=== PATIENT | male | born 1955 | race Caucasian/White ===

== ENCOUNTER → 2020-02-28 | Outpatient (CLI) | payer OTHER ==
[~2020-02-28] MED LIST: REGADENOSON 0.4 MG/5 ML SYRINGE IV ONE
--- NOTE | 2020-02-28 16:28 | NM ---
EXAMINATION TYPE: NM stress lexiscan cardiolite DATE OF EXAM: 02/28/2020 COMPARISON: NONE HISTORY: Edema. Shortness of breath. TECHNIQUE: After the intravenous administration of 10.8 mCi Tc 99m Sestamibi - Cardiolite resting SP ECT images acquired 55 minutes post injection. The patient received 0.4mg Lexiscan, 24.3 mCi Tc 99m Sestamibi - Stress images obtained [address] injection FINDINGS: Review of stress and rest SPECT images demonstrates reversible perfusion abnormality of the base of t he septum, diffusely of the inferior wall, apical lateral wall. There is fixed defect of the inferio r wall on stress and rest, however apparent normal wall motion, and likely artifact and less likely r epresentative of scar. Gated analysis shows normal wall motion with an estimated left ventricular eje ction fraction of 65%. TID 0.95 IMPRESSION: 1. Scintigraphic evidence for reversible ischemia of the inferior wall, lateral wall, and septum as above. 2. Ejection fraction 65%. A Divide level critical message alert has been initiated for Nirmala Boswell III, MD via the [employer] Critical Results System on 02/28/2020 4:25 PM. This message alert has been sent to Nirmala vee III, MD via the preferences provided by the clinician for the receipt of Radiology Critical Fin macario. Message ID [id number].
--- NOTE | 2020-02-28 17:31 | ECHOF ---
Referral Reason:R60.0 Edema, R06.02 shortness of breath MEASUREMENTS -------- HEIGHT: 182.9 cm WEIGHT: 147.0 kg BP: RVIDd: 3.7 cm (< 3.3) IVSd: 1.0 cm (0.6 - 1.1) LVIDd: 4.3 cm (3.9 - 5.3) LVPWd: 1.3 cm (0.6 - 1.1) IVSs: 1.6 cm LVIDs: 4.1 cm LVPWs: 1.2 cm LA Diam: 3.8 cm (2.7 - 3.8) MV EXCURSION: 21.952 mm (> 18.000) MV EF SLOPE: 105 mm/s (70 - 150) EPSS: 1.0 cm MV E Adolph: 0.54 m/s MV DecT: 213 ms MV A Adolph: 0.56 m/s MV E/A Ratio: 0.96 RAP: 5.00 mmHg RVSP: 36.30 mmHg FINDINGS -------- Sinus rhythm. Morbid Obesity This was a techncally difficult study with suboptimal views, , Lumason utilized for enhancement of im ages. The left ventricular size is normal. Left ventricular wall thickness is normal. Overall left vent ricular systolic function is normal with, an EF between 55 - 60 %. The right ventricle is normal in size. The left atrial size is normal. The right atrial size is normal. 5.0mg OF Lumason UTLIZED: 2 OR MORE WALL SEGMENTS NOT VISUALIZED. IAS not well Visualized. There is mild aortic valve sclerosis. Mild mitral regurgitation is present. Mild tricuspid regurgitation present. There is mild pulmonary hypertension. The pulmonic valve was not well visualized. The aortic root size is normal. There is no pericardial effusion. CONCLUSIONS -------- 1. Sinus rhythm. 2. Morbid Obesity 3. This was a techncally difficult study with suboptimal views, , Lumason utilized for enhancement of images. 4. The left ventricular size is normal. 5. Left ventricular wall thickness is normal. 6. Overall left ventricular systolic function is normal with, an EF between 55 - 60 %. 7. The right ventricle is normal in size. 8. The left atrial size is normal. 9. The right atrial size is normal. 10. 5.0mg OF Lumason UTLIZED: 2 OR MORE WALL SEGMENTS NOT VISUALIZED. 11. There is mild aortic valve sclerosis. 12. Mild mitral regurgitation is present. 13. Mild tricuspid regurgitation present. 14. There is mild pulmonary hypertension. 15. The pulmonic valve was not well visualized. COATING AND BAKING OPERATOR: Ayaka Domingo RDCS
--- NOTE | 2020-02-28 18:45 | EST ---
EXERCISE STRESS AGE: 64 SEX: Male HT: 71" WT: 324 PROTOCOL: Lexiscan, Cardiolite STAGE: DURATION OF EXERCISE: HEART RATE REST: 67 BLOOD PRESSURE REST: 162/90 MAXIMUM HEART RATE ACHIEVED: 82 MAXIMUM BLOOD PRESSURE: 162/90 85% MPHR: 100% MPHR: METS: INDICATIONS: Difficulty in breathing, edema. CLINICAL INFORMATION: Baseline EKG revealed normal sinus rhythm without significant ST-T changes. Minor right ventricular conduction delay noted. With Lexiscan administration, heart rate went up from 67 to 82 beats per minute. Blood pressure changed from 160/90 to 144/73. Patient did not have any significant symptoms. Rare PVCs were noted. EKG remained unremarkable. By EKG criteria, this is an unremarkable Lexiscan stress test. The nuclear scan results, which are more pertinent, will be reported by the radiologist. VARGAS / LORRAINE: [id number] /
== END | disposition home or self-care (01) ==
LOC: RADNMMAIN 08:49
PROVIDERS: ATTEND Family Medicine
DX: I21.19 ST elevation (STEMI) myocardial infarction involving other coronary artery of inferior wall (principal); I08.3 Combined rheumatic disorders of mitral, aortic and tricuspid valves; I27.20 Pulmonary hypertension, unspecified
CPT/HCPCS: 93017; 78452; C8929; A9500; J2785; Q9950; 93306

== ENCOUNTER 2020-03-13 07:51 | Day surgery (SDC) | payer OTHER ==
[2020-03-09 12:08] VITALS: BMI 44.7
[~2020-03-13 07:51] MED LIST changes: +ALPRAZolam 0.25 MG TAB PO PRN; +ALPRAZolam 0.5 MG TAB PO PRN; +ASPIRIN 325 MG TAB PO STA; +ATORVASTATIN 80 MG TAB PO STA; +NITROGLYCERIN SL TABS 0.4 MG TAB SUBLINGUAL PRN; -REGADENOSON 0.4 MG/5 ML SYRINGE IV ONE; +SODIUM CHLORIDE 0.9% 1,000 ML in EMPTY BAG 1 BAG IV ONE
[2020-03-13 08:32] VITALS: TEMP 98.3
[2020-03-13 08:35] LABS: Basophils # (A) 0.1 k/uL (0-0.2); Basophils % (A) 1 %; Eosinophils # (A) 0.5 k/uL (0-0.7); Eosinophils % (A) 4 %; HCT 46.4 % (39.0-53.0); Lymphocytes # (A) 2.5 k/uL (1.0-4.8); Lymphocytes % (A) 25 %; MCHC 32.4 g/dL (31.0-37.0); MCV 89.4 fL (80.0-100.0); Mean Platelet Volume 6.8; Monocytes # (A) 0.6 k/uL (0-1.0); Monocytes % (A) 6 %; Neutrophils # (A) 6.3 k/uL (1.3-7.7); Neutrophils % (A) 62 %; Platelet Count 293 k/uL (150-450); RBC 5.19 m/uL (4.30-5.90); RDW 13.3 % (11.5-15.5); WBC 10.1 k/uL (3.8-10.6)
[2020-03-13] MEDS: MIDAZOLAM 2 MG/2 ML VIAL IVP ONE ×2 (09:09→09:16)
[2020-03-13] MEDS: fentaNYL (PF) 50 MCG/ML 2 ML AMP IVP ONE ×2 (09:09→09:14)
[2020-03-13] MEDS ORDERED: LIDOCAINE 1% INJ 10MG/ML (20 ML MDV) SQ ONE (09:12)
[2020-03-13] MEDS ORDERED: IOPAMIDOL-370 100ML BTL INJ ONE (09:24)
[2020-03-13] MEDS ORDERED: RX INFO: IV CONTRAST WAS GIVEN 1 EACH MISC MISCELLANE PRN (11:06)
[2020-03-13] MEDS ORDERED: SODIUM CHLORIDE 0.9% 1,000 ML IV SCH (11:15)
--- NOTE | 2020-03-13 11:44 | CC ---
CARDIAC CATHETERIZATION REPORT INDICATION: Shortness of breath with abnormal stress test. PROCEDURE NOTE: After obtaining informed consent, left heart catheterization and coronary angiogram were performed via the right femoral artery using standard Peter catheters. Patient tolerated the procedure well without any obvious immediate complication. A femoral angiogram was performed and Angio-Seal will be deployed for hemostasis. FINDINGS: 1. HEMODYNAMICS: Left ventricular end-diastolic pressure is 8 to 12 mm. There is no significant gradient across the aortic valve. 2. LEFT VENTRICULOGRAM: Left ventriculogram is not performed. 3. ANGIOGRAPHIC DATA: LEFT MAIN CORONARY ARTERY: Left main coronary artery is a normal-sized vessel and is free of stenosis. Divides into left anterior descending coronary artery and circumflex coronary artery. LAD and its branches, circumflex coronary artery and its branches are free of significant stenosis. Right coronary artery is a codominant system and is free of significant disease. CONCLUSION: 1. Normal coronary arteries. 2. Normal left ventricular end-diastolic pressure. 3. False-positive stress test. PLAN: Patient's management is going to be in the form of risk factor modification, medical therapy. MMODL / IJN: [id number] /
--- NOTE | 2020-03-13 11:50 | LTR ---
DATE OF SERVICE: 03/13/2020 RE: Owen Aldrich Dear George: I performed cardiac catheterization on Owen Aldrich, a detailed catheterization note is enclosed for your records. In brief, cardiac catheterization revealed normal coronary arteries. I believe patient's shortness of breath is noncardiac in origin, and his management is going to be in the form of risk factor modification and medical therapy. His stress test is a false positive stress. Thank you for giving me the privilege of participated in the care of this pleasant gentleman. Sincerely, MD VARGAS Mireles / LORRAINE: [id number] /
--- NOTE | 2020-03-13 12:44 | CC ---
CARDIAC CATHETERIZATION REPORT INDICATION: Occasional shortness of breath with abnormal stress test. PROCEDURE NOTE: After obtaining an informed consent, left heart catheterization and coronary angiogram were performed via the right femoral artery using standard Peter catheters. Patient tolerated the procedure well without any obvious immediate complications. A femoral angiogram was performed and Angio-Seal was deployed for hemostasis. Patient received moderate conscious sedation. Total sedation time was 14 minutes. FINDINGS: HEMODYNAMICS: Left ventricular end-diastolic pressure is 6-8 mm, there is no significant gradient across the aortic valve. LEFT VENTRICULOGRAM: Left ventriculogram was not performed. ANGIOGRAPHIC DATA: LEFT MAIN CORONARY ARTERY: Left main coronary artery is a normal-sized vessel and is free of stenosis. Divides into left anterior descending coronary artery and circumflex coronary artery. LAD and its branches, circumflex coronary artery and its branches are free of significant stenosis. Right coronary artery is a large dominant vessel and is free of significant disease. CONCLUSION: 1. Normal coronary arteries. 2. Normal left ventricular end-diastolic pressure. PLAN: I reviewed angiographic data with the patient and told him that his stress test is a falsely positive stress test and his management is going to be in the form of risk factor modification and optimal medical therapy. He has discomfort in his feet and had been seen by a vascular surgeon and Wound Clinic. MMODL / IJN: [id number] /
[2020-03-13 16:33] VITALS: BP 129/66; PULSE 60; RESP 16
== END 2020-03-13 14:43 | disposition home or self-care (01) ==
LOC: CATHCVL 07:51
PROVIDERS: ATTEND Internal Medicine Cardiovascular Disease
DX: R06.02 Shortness of breath (principal); R94.39 Abnormal result of other cardiovascular function study; E78.2 Mixed hyperlipidemia; R60.0 Localized edema; E66.01 Morbid (severe) obesity due to excess calories; I08.1 Rheumatic disorders of both mitral and tricuspid valves; Z68.41 Body mass index [BMI] 40.0-44.9, adult; Z79.82 Long term (current) use of aspirin; Z79.899 Other long term (current) drug therapy; Z87.891 Personal history of nicotine dependence
CPT/HCPCS: 93458; 85025; C1769 ×2; C1760; C1894; J2250; J2001; J3010; Q9967

== ENCOUNTER 2020-06-04 16:03 | Inpatient (IN) | payer OTHER ==
[2020-06-04] MEDS ORDERED: ACETAMINOPHEN TAB 325 MG TAB PO PRN (20:29)
[2020-06-04] MEDS ORDERED: FUROSEMIDE 10 MG/ML 4 ML VIAL IV STA (20:29)
[2020-06-04] MEDS ORDERED: ONDANSETRON 4 MG/2 ML VIAL IVP PRN (20:30)
[2020-06-04] MEDS: MORPHINE SULFATE 4 MG/ML SYRINGE IVP PRN (21:18)
[2020-06-04 21:43] LABS: Basophils # (A) 0.1 k/uL (0-0.2); Basophils % (A) 1 %; Eosinophils # (A) 0.6 k/uL (0-0.7); Eosinophils % (A) 8 %; HCT 43.4 % (39.0-53.0); Lymphocytes # (A) 2.1 k/uL (1.0-4.8); Lymphocytes % (A) 29 %; MCH 30.2 pg (25.0-35.0); MCHC 32.2 g/dL (31.0-37.0); MCV 93.6 fL (80.0-100.0); Mean Platelet Volume 6.9; Monocytes # (A) 0.4 k/uL (0-1.0); Monocytes % (A) 6 %; Neutrophils # (A) 3.9 k/uL (1.3-7.7); Neutrophils % (A) 54 %; Platelet Count 263 k/uL (150-450); RBC 4.64 m/uL (4.30-5.90); RDW 13.4 % (11.5-15.5); WBC 7.2 k/uL (3.8-10.6)
[2020-06-04] MEDS: PANTOPRAZOLE 40 MG TABLET PO SCH (21:50)
[2020-06-04] MEDS: SENNOSIDES 8.6 MG TAB PO SCH (21:50)
[2020-06-04 21:53] LABS: INR 0.9 (<1.2); Prothrombin Time 9.3 sec (9.0-12.0)
[2020-06-04 21:56] LABS: ALT 56 U/L (4-49); AST 48 U/L (17-59); African American GFR (CKD) >90 (>60 ml/min/1.73 sqM); Albumin 3.6 g/dL (3.5-5.0); Albumin/Globulin Ratio 1.1; Alkaline Phosphatase 112 U/L (38-126); Anion Gap 3 mmol/L; Blood Urea Nitrogen 35 mg/dL (9-20); Calcium 8.9 mg/dL (8.4-10.2); Carbon Dioxide 28 mmol/L (22-30); Chloride 107 mmol/L (98-107); Globulin 3.2 g/dL; Glucose 90 mg/dL (74-99); Non-African American GFR(CKD) >90 (>60 ml/min/1.73 sqM); Potassium 4.1 mmol/L (3.5-5.1); Sodium 138 mmol/L (137-145); Total Bilirubin 0.7 mg/dL (0.2-1.3); Total Protein 6.8 g/dL (6.3-8.2)
--- NOTE | 2020-06-04 22:00 | XR ---
EXAMINATION: XR chest 2V DATE AND TIME: 06/04/2020 9:57 PM CLINICAL INDICATION: PHH; BLE edema, admission TECHNIQUE: Departmental protocol COMPARISON: None FINDINGS: The overlying soft tissues are prominent. The lungs are clear. The pleural spaces are negative. The cardiac silhouette is mildly enlarged. The remainder of the mediastinal silhouette is unremarkabl e. The skeletal structures and soft tissues are negative for acute findings. IMPRESSION: No definite acute radiographic process.
[2020-06-04] MEDS: KETOROLAC 15 MG/ML 1 ML VIAL IVP SCH (22:38)
[2020-06-04] MEDS: AMPICILLIN-SULBACTAM 3 GM in SODIUM CHLORIDE 0.9% 100 ML IVPB SCH (23:30)
[2020-06-04] MEDS: HEPARIN SODIUM,PORCINE 5,000 UNIT/ML 1 ML VIAL SQ SCH (23:30)
[2020-06-05] MEDS: KETOROLAC 15 MG/ML 1 ML VIAL IVP SCH (03:28)
[2020-06-05] MEDS: MORPHINE SULFATE 4 MG/ML SYRINGE IVP PRN ×2 (04:17→09:08)
[2020-06-05] MEDS: AMPICILLIN-SULBACTAM 3 GM in SODIUM CHLORIDE 0.9% 100 ML IVPB SCH ×3 (05:47→17:10)
[2020-06-05] MEDS: SENNOSIDES 8.6 MG TAB PO SCH ×2 (09:02→09:13)
[2020-06-05] MEDS: PANTOPRAZOLE 40 MG TABLET PO SCH (09:02)
[2020-06-05] MEDS: polyethylene glycoL 3350 17 GM POWD.PACK PO SCH ×2 (09:03→09:13)
[2020-06-05] MEDS: HEPARIN SODIUM,PORCINE 5,000 UNIT/ML 1 ML VIAL SQ SCH ×2 (09:03→17:11)
[2020-06-05] MEDS ORDERED: LORATADINE 10 MG TAB PO PRN (10:09)
[2020-06-05] MEDS ORDERED: HYDROcodone/APAP 5-325MG 1 EACH TAB PO PRN (10:09)
[2020-06-05] MEDS ORDERED: NITROGLYCERIN SL TABS 0.4 MG TAB SUBLINGUAL PRN (10:09)
[2020-06-05] MEDS ORDERED: MORPHINE SULFATE 4 MG/ML SYRINGE IVP PRN (11:28)
--- NOTE | 2020-06-05 11:34 | P.CONS ---
History of Present Illness - Reason for Consult Consult date: 06/05/20 wound care - History of Present Illness this is a 64-year-old gentleman being seen by the wound care center for nonhealing ulceration to the dorsal aspect of the second third and fourth toe. Patient has extensive swelling and redness to bilateral lower extremities. Patient complains of significant amount of pain to the site. Patient was seen previously in the wound care center by Dr. Rolon in February. He was not happy with the dressing selections nor nor how wound care work and did not return for any further visits. Patient continues to have swelling and drainage to the toes. Patient states that dressings are not needed to the ulcerations because it is just drainage in the dressings cause pain. Patient is also complaining of an open ulceration to the sacrum which has been there for 4-5 months. Patient s tates he does not utilize any forms of dressing because of the tenderness to the site. Patient has medical history significant for hypertension, hyperlipidemia, venous insufficiency, obesity, bilateral lower extremity edema, former smoker. Quit in 1999 smoked 2 packs a day for approximately 50 years. Review of Systems Review Of Systems: Constitutional: No fever, no chills, no night sweats. No weight change. No weakness, fatigue or lethargy. No daytime sleepiness. Integumentary:reports wounds, no lesions. No rash or pruritus. No unusual bruising. No change in hair or nails. Past Medical History Past Medical History: Hyperlipidemia, Hypertension Additional Past Medical History / Comment(s): Edema BLE, stress test abn, nocturia, ex-smoker, obseity, venous insufficiency, chronic ulcer of leg, pressure in eyes, cellulitis, chronic pain, History of Any Multi-Drug Resistant Organisms: None Reported Past Surgical History: Orthopedic Surgery Additional Past Surgical History / Comment(s): Rt middle finger surgery R/T injury, EGD, colonoscopy but patient states hes never had any scopes Past Anesthesia/Blood Transfusion Reactions: No Reported Reaction Past Psychological History: No Psychological Hx Reported Smoking Status: Former smoker Past Alcohol Use History: Occasional Additional Past Alcohol Use History / Comment(s): Smoked age 9 to age 44, up to 2 ppd, Quit 1999. Drinks wine now now and then. Past Drug Use History: None Reported - Past Family History Mother Family Medical History: No Reported History Medications and Allergies Home Medications Medication Instructions Recorded Confirmed Type Aspirin 325 mg PO DAILY 03/09/20 06/04/20 History Atorvastatin [Lipitor] 20 mg PO DAILY 03/09/20 06/04/20 History Furosemide [Lasix] 40 mg PO BID 03/09/20 06/04/20 History Pyridoxine HCl (Vitamin B6) 100 mg PO DAILY 03/09/20 06/04/20 History [Vitamin B-6] Turmeric Powder 1 tsp PO DAILY 03/09/20 06/04/20 History Calcium/Magnesium/Zinc 2 tab PO DAILY 06/04/20 06/04/20 History [Hiekimq-Eycpepjbi-Kuxv Tablet] Cayenne Pepper Powder 2 tsp PO DAILY 06/04/20 06/04/20 History Cetirizine HCl 10 mg PO DAILY PRN 06/04/20 06/04/20 History Cholecalciferol (Vitamin D3) 125 mcg PO DAILY 06/04/20 06/04/20 History [Vitamin D3] Doxycycline Hyclate 100 mg PO BID 06/04/20 06/04/20 History HYDROcodone/APAP 5-325MG [[place] 1 tab PO Q6H PRN 06/04/20 06/04/20 History 5-325] Ibuprofen [Motrin Ib] 800 mg PO TID 06/04/20 06/04/20 History Latanoprost Ophth [Xalatan 0.005%] 1 drop BOTH EYES HS 06/04/20 06/04/20 History Meloxicam [Mobic] 15 mg PO DAILY 06/04/20 06/04/20 History Nitroglycerin Sl Tabs [Nitrostat] 0.4 mg SL Q5M PRN 06/04/20 06/04/20 History [place]-3 600mg 1,200 mg PO DAILY 06/04/20 06/04/20 History Potassium Chloride 10 meq PO DAILY 06/04/20 06/04/20 History Potassium Gluconate 198 mg PO BID 06/04/20 06/04/20 History Spironolactone [Aldactone] 25 mg PO DAILY 06/04/20 06/04/20 History Vitamin A Acetate [Vitamin A] 10,000 unit SL DAILY 06/04/20 06/04/20 History Allergies Allergy/AdvReac Type Severity Reaction Status Date / Time No Known Allergies Allergy Verified 06/04/20 18:42 Physical Exam Vitals: Vital Signs Temp Pulse Resp BP Pulse Ox 06/05/20 05:00 97.0 F L 73 18 162/93 94 L 06/04/20 20:00 98.0 F 65 18 155/76 94 L 06/04/20 17:50 98.2 F 65 18 152/89 94 L Intake and Output 06/04/20 06/05/20 06/05/20 22:59 06:59 14:59 Intake Total 590 690 Output Total 1200 800 Balance -610 -110 Intake: Intake, IV Titration 100 Amount Ampicillin-Sulbactam 3 gm 100 In Sodium Chloride 0.9% 100 ml @ 200 mls/hr IVPB Q6HR [facility] Rx#:[id number] Oral 590 590 Output: Urine 1200 800 Other: Voiding Method Toilet Toilet Urinal Urinal # Voids 2 Weight 159.211 kg Physical exam: General Appearance: Alert, cooperative, no distress, appears stated age. Skin:The wound is currently classified as a Full Thickness Without Exposed Support Structures wound with etiology of To be determined and is located on the Left,Medial Toe second, thirdFourth. The wound is limited to skin breakdown. There is no tunneling or undermining noted. There is a largeamount of serous drainage noted. There is large (67-100%) red, pink granulation within the wound bed. There is a moderate amount of necrotic tissue within the wound bed including Adherent Slough. The periwound skin appearance erythema edema maceration and excoriation.. The periwound skin appearance did not exhibit: Callus, Crepitus, Excoriation, Induration, Rash, Scarring, Dry/Scaly, Maceration. Periwound temperature was noted aswarm to touch. The periwound has tenderness on palpation.all other Skin color, texture, tugor normal, no rashes or lesions. Neurologic: Alert oriented x3 Results CBC & Chem 7: 06/04/20 20:44 06/04/20 20:44 Labs: Abnormal Lab Results - Last 24 Hours (Table) 06/04/20 Range/Units 20:44 BUN 35 H (9-20) mg/dL ALT 56 H (4-49) U/L Microbiology - Last 24 Hours (Table) 06/04/20 23:49 Gram Stain - Preliminary Foot - Left Wound Culture - Preliminary 11/05/20 23:49 Gram Stain - Preliminary Foot - Right Wound Culture - Preliminary 06/04/20 23:49 Anaerobic Culture - Preliminary Foot - Right 06/04/20 23:49 Anaerobic Culture - Preliminary Foot - Left Assessment and Plan (1) Chronic venous hypertension (idiopathic) with ulcer of left lower extremity Current Visit: Yes Status: Acute Code(s): I87.312 - CHRONIC VENOUS HYPERTENSION W ULCER OF L LOW EXTREM; L97.929 - NON-PRS CHRONIC ULC UNSP PRT OF L LOW LEG W UNSP SEVERITY SNOMED Code(s): 856779058004172 (2) Chronic venous hypertension (idiopathic) with other complications of bilateral lower extremity Current Visit: Yes Status: Acute Code(s): I87.393 - CHRONIC VENOUS HTN W OTH COMP OF BILATERAL LOW EXTRM SNOMED Code(s): 171198256 (3) Non-healing ulcer of left foot, limited to breakdown of skin Current Visit: Yes Status: Acute Code(s): L97.521 - NON-PRS CHRONIC ULCER OTH PRT L FOOT LIMITED TO BRKDWN SKIN SNOMED Code(s): 400884936 (4) Wound infection Current Visit: Yes Status: Acute Code(s): T14.8XXA - OTHER INJURY OF UNSPECIFIED BODY REGION, INITIAL ENCOUNTER; L08.9 - LOCAL INFECTION OF THE SKIN AND SUBCUTANEOUS TISSUE, UNSP SNOMED Code(s): 98399813 Plan: discussed with patient and great length the need for advanced dressings. Patient was reluctant to have anything placed on his lower extremities. We will consult vascular surgery. Right bilateral legs with Mihir wraps to help control swelling. Apply absorptive silver to the dorsal aspect of the second third and fourth toe as tolerated changing Monday and Monday. Honey alginate to the sacral ulceration changing Monday with a border foam. Patient may return to the wound care center for outpatient wound care as need ed. Thank you for the consultation any questions please contact the wound care center DNP note has been reviewed and discussed with Dr. Sheridan and the impression and plan of care has been directed as dictated.
[2020-06-05] MEDS: KETOROLAC 15 MG/ML 1 ML VIAL IVP PRN ×2 (11:35→17:10)
[2020-06-05] MEDS: FUROSEMIDE 10 MG/ML 4 ML VIAL IV SCH ×2 (11:35→19:45)
--- NOTE | 2020-06-05 12:55 | P.HPIM ---
History of Present Illness 64-year-old male is admitted for bilateral lower extremity wounds and cellulitis significantly in the left lower extremity. Patient has nonhealing ulcers in both legs does have significant chronic venous insufficiency. Patient usually follows up with vascular surgery and wound clinic as an outpatient. Patient started having increasing redness and severe 10/10 pain in both lower extremities. Patient doesn't have any history of congestive heart failure. Patient is comparing of severe pain in both lower extremities. Patient used to be a smoker quit in 1999. Patient has an ulceration nonhealing on the dose last but of this second, third and fourth toes at the tarsometatarsal area. With significant redness in both lower extremities more pronounced in the left. Review of Systems REVIEW OF SYSTEMS: CONSTITUTIONAL: No fever, no malaise, no fatigue. HEENT: No recent visual problems or hearing problems. Denied any sore throat. CARDIOVASCULAR: No chest pain, orthopnea, PND, no palpitations, no syncope. PULMONARY: No shortness of breath, no cough, no hemoptysis. GASTROINTESTINAL: No diarrhea, no nausea, no vomiting, no abdominal pain. NEUROLOGICAL: No headaches, no weakness, no numbness. HEMATOLOGICAL: Denies any bleeding or petechiae. GENITOURINARY: Denies any burning micturition, frequency, or urgency. MUSCULOSKELETAL/RHEUMATOLOGICAL: as mentioned in HPI ENDOCRINE: Denies any polyuria or polydipsia. The rest of the 14-point review of systems is negative. Past Medical History Past Medical History: Hyperlipidemia, Hypertension Additional Past Medical History / Comment(s): Edema BLE, stress test abn, n octuria, ex-smoker, obseity, venous insufficiency, chronic ulcer of leg, pressure in eyes, cellulitis, chronic pain, History of Any Multi-Drug Resistant Organisms: None Reported Past Surgical History: Orthopedic Surgery Additional Past Surgical History / Comment(s): Rt middle finger surgery R/T injury, EGD, colonoscopy but patient states hes never had any scopes Past Anesthesia/Blood Transfusion Reactions: No Reported Reaction Past Psychological History: No Psychological Hx Reported Smoking Status: Former smoker Past Alcohol Use History: Occasional Additional Past Alcohol Use History / Comment(s): Smoked age 9 to age 44, up to 2 ppd, Quit 1999. Drinks wine now now and then. Past Drug Use History: None Reported - Past Family History Mother Family Medical History: No Reported History Medications and Allergies Home Medications Medication Instructions Recorded Confirmed Type Aspirin 325 mg PO DAILY 03/09/20 06/04/20 History Atorvastatin [Lipitor] 20 mg PO DAILY 03/09/20 06/04/20 History Furosemide [Lasix] 40 mg PO BID 03/09/20 06/04/20 History Pyridoxine HCl (Vitamin B6) 100 mg PO DAILY 03/09/20 06/04/20 History [Vitamin B-6] Turmeric Powder 1 tsp PO DAILY 03/09/20 06/04/20 History Calcium/Magnesium/Zinc 2 tab PO DAILY 06/04/20 06/04/20 History [Koxvdbd-Bulilslqb-Aaxc Tablet] Cayenne Pepper Powder 2 tsp PO DAILY 06/04/20 06/04/20 History Cetirizine HCl 10 mg PO DAILY PRN 06/04/20 06/04/20 History Cholecalciferol (Vitamin D3) 125 mcg PO DAILY 06/04/20 06/04/20 History [Vitamin D3] Doxycycline Hyclate 100 mg PO BID 06/04/20 06/04/20 History HYDROcodone/APAP 5-325MG [[place] 1 tab PO Q6H PRN 06/04/20 06/04/20 History 5-325] Ibuprofen [Motrin Ib] 800 mg PO TID 06/04/20 06/04/20 History Latanoprost Ophth [Xalatan 0.005%] 1 drop BOTH EYES HS 06/04/20 06/04/20 History Meloxicam [Mobic] 15 mg PO DAILY 06/04/20 06/04/20 History Nitroglycerin Sl Tabs [Nitrostat] 0.4 mg SL Q5M PRN 06/04/20 06/04/20 History [place]-3 600mg 1,200 mg PO DAILY 06/04/20 06/04/20 History Potassium Chloride 10 meq PO DAILY 06/04/20 06/04/20 History Potassium Gluconate 198 mg PO BID 06/04/20 06/04/20 History Spironolactone [Aldactone] 25 mg PO DAILY 06/04/20 06/04/20 History Vitamin A Acetate [Vitamin A] 10,000 unit SL DAILY 06/04/20 06/04/20 History Allergies Allergy/AdvReac Type Severity Reaction Status Date / Time No Known Allergies Allergy Verified 06/04/20 18:42 Physical Exam Vitals: Vital Signs Temp Pulse Resp BP Pulse Ox 06/05/20 12:31 97.9 F 69 18 142/82 93 L 06/05/20 05:00 97.0 F L 73 18 162/93 94 L 06/04/20 20:00 98.0 F 65 18 155/76 94 L 06/04/20 17:50 98.2 F 65 18 152/89 94 L Intake and Output 06/04/20 06/05/20 06/05/20 22:59 06:59 14:59 Intake Total 590 690 Output Total 1200 800 Balance -610 -110 Intake: Intake, IV Titration 100 Amount Ampicillin-Sulbactam 3 gm 100 In Sodium Chloride 0.9% 100 ml @ 200 mls/hr IVPB Q6HR [facility] Rx#:[id number] Oral 590 590 Output: Urine 1200 800 Other: Voiding Method Toilet Toilet Urinal Urinal # Voids 2 Weight 159.211 kg PHYSICAL EXAMINATION: GENERAL: The patient is alert and oriented x3, not in any acute distress. Well developed, well nourished. HEENT: Pupils are round and equally reacting to light. EOMI. No scleral icterus. No conjunctival pallor. Normocephalic, atraumatic. No pharyngeal erythema. No thyromegaly. CARDIOVASCULAR: S1 and S2 present. No murmurs, rubs, or gallops. PULMONARY: Chest is clear to auscultation, no wheezing or crackles. ABDOMEN: Soft, nontender, nondistended, normoactive bowel sounds. No palpable organomegaly. MUSCULOSKELETAL: No joint swelling or deformity. EXTREMITIES: No cyanosis, clubbing, or pedal edema. NEUROLOGICAL: Gross neurological examination did not reveal any focal deficits. SKIN: patient has ulcers as mentioned above significant lightheadedness both lower extremity significance allied as the left lower extremity. Patient also has a small boil in the medial aspect of the left buttock area. Results CBC & Chem 7: 06/04/20 20:44 06/04/20 20:44 Labs: Abnormal Lab Results - Last 24 Hours (Table) 06/04/20 Range/Units 20:44 BUN 35 H (9-20) mg/dL ALT 56 H (4-49) U/L Microbiology - Last 24 Hours (Table) 06/04/20 23:49 Gram Stain - Preliminary Foot - Left Wound Culture - Preliminary 06/04/20 23:49 Gram Stain - Preliminary Foot - Right Wound Culture - Preliminary 06/04/20 23:49 Anaerobic Culture - Preliminary Foot - Right 06/04/20 23:49 Anaerobic Culture - Preliminary Foot - Left Thrombosis Risk Factor Assmnt - Choose All That Apply Each Factor Represents 1 point: Obesity (BMI >25), Swollen legs (current) Each Risk Factor Represents 2 Points: Age 61-74 years Other congenital or acquired thrombophilia - If yes, enter type in comment: No Thrombosis Risk Factor Assessment Total Risk Factor Score: 4 Thrombosis Risk Factor Assessment Level: Moderate Risk Assessment and Plan Plan: -cellulitis and infected ulcers mostly stage II to 3 in the left lower extremity on the dose last but: Continue with the Unasyn at this time. Wound cultures were obtained infectious disease was consulted. Vascular surgery was consulted and patient the will need Mihir bandages. Patient need to elevate his legs while sleeping which she does at home. -Extensive edema of both lower extremities secondary to chronic venous insufficiency ulcer which is Lasix to IV to make him have effective diuresis. -Pain management continue with present morphine patient will also be started on Toradol for pain. -Nonhealing ulcer of the left foot venous ulceration -Obesity non-hyperlipidemia -Hypertension -DVT prophylaxis with heparin.GI prophylaxis Protonix
[2020-06-05] MEDS ORDERED: FUROSEMIDE 40 MG TAB PO SCH (16:00)
[2020-06-05] MEDS ORDERED: SILVER sulfADIAZINE Cream 400 GM 1 APPLIC APPLIC TOPICAL STA (16:43)
--- NOTE | 2020-06-05 17:15 | P.GSCN ---
History of Present Illness History of present illness: 64-year-old white male, patient is known to me from the wound clinic is a noncompliant stopped coming to the wound clinic. Patient has a cellulitis of the lower extremity and dorsal suspect the foot and there is some superficial ulcer anterior aspect of the right and left lower leg. We also noted some redness on the toes of the second and third toe on the left foot. Patient has been admitted admitted with IV antibiotic Diabetes, patient has history of 4 hypertension controlled with medication Neck examination neck is supple Chest is clear first and second sound normal normal abdomen is protuberant Vascular femorals are 1+ patient has a marked swelling of the both lower extre mity and dorsal suspect of the both feet more on the left than on the right and also there is some redness noted on the left foot all the toes and there is some superficial ulcer lower extremity. Plan is Silvadene cream with the compression wrap IV antibiotic and change dressing daily with the both feet elevation on 2 pillow follow with you thank you Past Medical History Past Medical History: Hyperlipidemia, Hypertension Additional Past Medical History / Comment(s): Edema BLE, stress test abn, nocturia, ex-smoker, obseity, venous insufficiency, chronic ulcer of leg, pressure in eyes, cellulitis, chronic pain, History of Any Multi-Drug Resistant Organisms: None Reported Past Surgical History: Orthopedic Surgery Additional Past Surgical History / Comment(s): Rt middle finger surgery R/T injury, EGD, colonoscopy but patient states hes never had any scopes Past Anesthesia/Blood Transfusion Reactions: No Reported Reaction Past Psychological History: No Psychological Hx Reported Smoking Status: Former smoker Past Alcohol Use History: Occasional Additional Past Alcohol Use History / Comment(s): Smoked age 9 to age 44, up to 2 ppd, Quit 1999. Drinks wine now now and then. Past Drug Use History: None Reported - Past Family History Mother Family Medical History: No Reported History Medications and Allergies Home Medications Medication Instructions Recorded Confirmed Type Aspirin 325 mg PO DAILY 03/09/20 06/04/20 History Atorvastatin [Lipitor] 20 mg PO DAILY 03/09/20 06/04/20 History Furosemide [Lasix] 40 mg PO BID 03/09/20 06/04/20 History Pyridoxine HCl (Vitamin B6) 100 mg PO DAILY 03/09/20 06/04/20 History [Vitamin B-6] Turmeric Powder 1 tsp PO DAILY 03/09/20 06/04/20 History Calcium/Magnesium/Zinc 2 tab PO DAILY 06/04/20 06/04/20 History [Qcwxuwt-Zyosthypc-Jvbg Tablet] Cayenne Pepper Powder 2 tsp PO DAILY 06/04/20 06/04/20 History Cetirizine HCl 10 mg PO DAILY PRN 06/04/20 06/04/20 History Cholecalciferol (Vitamin D3) 125 mcg PO DAILY 06/04/20 06/04/20 History [Vitamin D3] Doxycycline Hyclate 100 mg PO BID 06/04/20 06/04/20 History HYDROcodone/APAP 5-325MG [[place] 1 tab PO Q6H PRN 06/04/20 06/04/20 History 5-325] Ibuprofen [Motrin Ib] 800 mg PO TID 06/04/20 06/04/20 History Latanoprost Ophth [Xalatan 0.005%] 1 drop BOTH EYES HS 06/04/20 06/04/20 History Meloxicam [Mobic] 15 mg PO DAILY 06/04/20 06/04/20 History Nitroglycerin Sl Tabs [Nitrostat] 0.4 mg SL Q5M PRN 06/04/20 06/04/20 History [place]-3 600mg 1,200 mg PO DAILY 06/04/20 06/04/20 History Potassium Chloride 10 meq PO DAILY 06/04/20 06/04/20 History Potassium Gluconate 198 mg PO BID 06/04/20 06/04/20 History Spironolactone [Aldactone] 25 mg PO DAILY 06/04/20 06/04/20 History Vitamin A Acetate [Vitamin A] 10,000 unit SL DAILY 06/04/20 06/04/20 History Allergies Allergy/AdvReac Type Severity Reaction Status Date / Time No Known Allergies Allergy Verified 06/04/20 18:42 Surgical - Exam Vital Signs Temp Pulse Resp BP Pulse Ox 98.2 F 65 18 152/89 94 L 06/04/20 17:50 06/04/20 17:50 06/04/20 17:50 06/04/20 17:50 06/04/20 17:50 Results - Labs 06/04/20 20:44 06/04/20 20:44 Abnormal Lab Results - Last 24 Hours (Table) 06/04/20 Range/Units 20:44 BUN 35 H (9-20) mg/dL ALT 56 H (4-49) U/L Microbiology - Last 24 Hours (Table) 06/04/20 23:49 Gram Stain - Preliminary Foot - Left Wound Culture - Preliminary 06/04/20 23:49 Gram Stain - Preliminary Foot - Right Wound Culture - Preliminary 06/04/20 23:49 Anaerobic Culture - Preliminary Foot - Right 06/04/20 23:49 Anaerobic Culture - Preliminary Foot - Left Diabetes panel 06/04/20 Range/Units 20:44 Sodium 138 (137-145) mmol/L Potassium 4.1 (3.5-5.1) mmol/L Chloride 107 (98-107) mmol/L Carbon Dioxide 28 (22-30) mmol/L BUN 35 H (9-20) mg/dL Creatinine 0.89 (0.66-1.25) mg/dL Glucose 90 (74-99) mg/dL Calcium 8.9 (8.4-10.2) mg/dL AST 48 (17-59) U/L ALT 56 H (4-49) U/L Alkaline Phosphatase 112 (38-126) U/L Total Protein 6.8 (6.3-8.2) g/dL Albumin 3.6 (3.5-5.0) g/dL Calcium panel 06/04/20 Range/Units 20:44 Calcium 8.9 (8.4-10.2) mg/dL Albumin 3.6 (3.5-5.0) g/dL Pituitary panel 06/04/20 Range/Units 20:44 Sodium 138 (137-145) mmol/L Potassium 4.1 (3.5-5.1) mmol/L Chloride 107 (98-107) mmol/L Carbon Dioxide 28 (22-30) mmol/L BUN 35 H (9-20) mg/dL Creatinine 0.89 (0.66-1.25) mg/dL Glucose 90 (74-99) mg/dL Calcium 8.9 (8.4-10.2) mg/dL Adrenal panel 06/04/20 Range/Units 20:44 Sodium 138 (137-145) mmol/L Potassium 4.1 (3.5-5.1) mmol/L Chloride 107 (98-107) mmol/L Carbon Dioxide 28 (22-30) mmol/L BUN 35 H (9-20) mg/dL Creatinine 0.89 (0.66-1.25) mg/dL Glucose 90 (74-99) mg/dL Calcium 8.9 (8.4-10.2) mg/dL Total Bilirubin 0.7 (0.2-1.3) mg/dL AST 48 (17-59) U/L ALT 56 H (4-49) U/L Alkaline Phosphatase 112 (38-126) U/L Total Protein 6.8 (6.3-8.2) g/dL Albumin 3.6 (3.5-5.0) g/dL
[2020-06-05] MEDS: LATANOPROST 0.005% OPHTH DROPS 2.5 ML BTL BOTH EYES SCH (19:45)
--- NOTE | 2020-06-05 23:51 | P.CONS ---
History of Present Illness - Reason for Consult Consult date: 06/05/20 Lower extremity cellulitis Requesting physician: Dulce Melendez - Chief Complaint Bilateral leg swelling and redness x few days - History of Present Illness Patient is a 64-year-old male admitted to the hospital with bilateral lower extremity wound and cellulitis in this patient who did have a history of chronic lower extremity swelling and venous stasis ulcer with the patient has been previously treated at [facility], patient is now presented to the hospital with increasing swelling to the lower extremity especially the left leg with some superficial ulceration to his toes and some drainage in between the toe web, patient describing the pain to be sharp in nature and was almost 10 out of 10 in severity, he did have minimal drainage, on admission to the hospital the patient has been afebrile white count has been normal the patient did have local wound cultures obtained and the patient was started on Unasyn infectious disease was consulted for further management of antibiotic therapy Review of Systems Positive point has been mentioned in the HPI rest of the systems are negative Past Medical History Past Medical History: Hyperlipidemia, Hypertension Additional Past Medical History / Comment(s): Edema BLE, stress test abn, nocturia, ex-smoker, obseity, venous insufficiency, chronic ulcer of leg, pressure in eyes, cellulitis, chronic pain, History of Any Multi-Drug Resistant Organisms: None Reported Past Surgical History: Orthopedic Surgery Additional Past Surgical History / Comment(s): Rt middle finger surgery R/T injury, EGD, colonoscopy but patient states hes never had any scopes Past Anesthesia/Blood Transfusion Reactions: No Reported Reaction Past Psychological History: No Psychological Hx Reported Smoking Status: Former smoker Past Alcohol Use History: Occasional Additional Past Alcohol Use History / Comment(s): Smoked age 9 to age 44, up to 2 ppd, Quit 1999. Drinks wine now now and then. Past Drug Use History: None Reported - Past Family History Mother Family Medical History: No Reported History Medications and Allergies Home Medications Medication Instructions Recorded Confirmed Type Aspirin 325 mg PO DAILY 03/09/20 06/04/20 History Atorvastatin [Lipitor] 20 mg PO DAILY 03/09/20 06/04/20 History Furosemide [Lasix] 40 mg PO BID 03/09/20 06/04/20 History Pyridoxine HCl (Vitamin B6) 100 mg PO DAILY 03/09/20 06/04/20 History [Vitamin B-6] Turmeric Powder 1 tsp PO DAILY 03/09/20 06/04/20 History Calcium/Magnesium/Zinc 2 tab PO DAILY 06/04/20 06/04/20 History [Xocguhg-Lqrawjuev-Rabm Tablet] Cayenne Pepper Powder 2 tsp PO DAILY 06/04/20 06/04/20 History Cetirizine HCl 10 mg PO DAILY PRN 06/04/20 06/04/20 History Cholecalciferol (Vitamin D3) 125 mcg PO DAILY 06/04/20 06/04/20 History [Vitamin D3] Doxycycline Hyclate 100 mg PO BID 06/04/20 06/04/20 History HYDROcodone/APAP 5-325MG [[place] 1 tab PO Q6H PRN 06/04/20 06/04/20 History 5-325] Ibuprofen [Motrin Ib] 800 mg PO TID 06/04/20 06/04/20 History Latanoprost Ophth [Xalatan 0.005%] 1 drop BOTH EYES HS 06/04/20 06/04/20 History Meloxicam [Mobic] 15 mg PO DAILY 06/04/20 06/04/20 History Nitroglycerin Sl Tabs [Nitrostat] 0.4 mg SL Q5M PRN 06/04/20 06/04/20 History [place]-3 600mg 1,200 mg PO DAILY 06/04/20 06/04/20 History Potassium Chloride 10 meq PO DAILY 06/04/20 06/04/20 History Potassium Gluconate 198 mg PO BID 06/04/20 06/04/20 History Spironolactone [Aldactone] 25 mg PO DAILY 06/04/20 06/04/20 History Vitamin A Acetate [Vitamin A] 10,000 unit SL DAILY 06/04/20 06/04/20 History Allergies Allergy/AdvReac Type Severity Reaction Status Date / Time No Known Allergies Allergy Verified 06/04/20 18:42 Physical Exam Vitals: Vital Signs Temp Pulse Resp BP Pulse Ox 06/05/20 05:00 97.0 F L 73 18 162/93 94 L 06/04/20 20:00 98.0 F 65 18 155/76 94 L 06/04/20 17:50 98.2 F 65 18 152/89 94 L Intake and Output 06/04/20 06/05/20 06/05/20 22:59 06:59 14:59 Intake Total 590 690 Output Total 1200 800 Balance -610 -110 Intake: Intake, IV Titration 100 Amount Ampicillin-Sulbactam 3 gm 100 In Sodium Chloride 0.9% 100 ml @ 200 mls/hr IVPB Q6HR [facility] Rx#:[id number] Oral 590 590 Output: Urine 1200 800 Other: Voiding Method Toilet Toilet Urinal Urinal # Voids 2 Weight 159.211 kg GENERAL DESCRIPTION: Middle-aged male up in the chair, no distress. No tachypnea or accessory muscle of respiration use. HEENT: Shows Pallor , no scleral icterus. Oral mucous membrane is dry. No pharyngeal erythema or thrush NECK: Trachea central, no thyromegaly. LUNGS: Unlabored breathing. Clear to auscultation anteriorly. No wheeze or crac kle. HEART: S1, S2, regular rate and rhythm. No loud murmur ABDOMEN: Soft, no tenderness , guarding or rigidity, no organomegaly EXTREMITIES: 2+ edema of feet. Patient did have superficial ulceration to his toes with some drainage and redness SKIN: No rash, no masses palpable. NEUROLOGICAL: The patient is awake, alert, oriented x3, mood and affect normal. Results CBC & Chem 7: 06/04/20 20:44 06/04/20 20:44 Labs: Abnormal Lab Results - Last 24 Hours (Table) 06/04/20 Range/Units 20:44 BUN 35 H (9-20) mg/dL ALT 56 H (4-49) U/L Microbiology - Last 24 Hours (Table) 06/04/20 23:49 Gram Stain - Preliminary Foot - Left Wound Culture - Preliminary 06/04/20 23:49 Gram Stain - Preliminary Foot - Right Wound Culture - Preliminary 06/04/20 23:49 Anaerobic Culture - Preliminary Foot - Right 06/04/20 23:49 Anaerobic Culture - Preliminary Foot - Left Assessment and Plan Assessment: 1- patient with bilateral lower extremity venous stasis ulceration especially involving his toes and some evidence of cellulitis involving left foot as well as toes likely from gram-positive skin cy, gram-negative infection less likely but not entirely excluded, clinically behaving as a deep abscess (1) Bilateral lower leg cellulitis Current Visit: Yes Status: Acute Code(s): L03.116 - CELLULITIS OF LEFT LOWER LIMB; L03.115 - CELLULITIS OF RIGHT LOWER LIMB SNOMED Code(s): 577774135 Plan: 1- Unasyn 3 g every 6 hours 2- local wound care per the wound care team 3- discharge antibiotic on the basis of culture report We will follow on clinical condition and cultures to further adjust medication if needed Thank you for this consultation will follow this patient with you Time with Patient: Greater than 30
[2020-06-06] MEDS: AMPICILLIN-SULBACTAM 3 GM in SODIUM CHLORIDE 0.9% 100 ML IVPB SCH ×5 (00:35→23:34)
[2020-06-06] MEDS: HEPARIN SODIUM,PORCINE 5,000 UNIT/ML 1 ML VIAL SQ SCH ×4 (00:35→23:33)
[2020-06-06] MEDS: KETOROLAC 15 MG/ML 1 ML VIAL IVP PRN ×2 (01:46→08:30)
[2020-06-06 06:31] LABS: HCT 43.1 % (39.0-53.0); MCH 30.1 pg (25.0-35.0); MCHC 32.5 g/dL (31.0-37.0); MCV 92.6 fL (80.0-100.0); Mean Platelet Volume 6.8; Platelet Count 297 k/uL (150-450); RBC 4.65 m/uL (4.30-5.90); RDW 13.4 % (11.5-15.5); WBC 8.5 k/uL (3.8-10.6)
[2020-06-06] MEDS: CHOLECALCIFEROL 1,000 UNIT TAB PO SCH (08:12)
[2020-06-06] MEDS: FUROSEMIDE 10 MG/ML 4 ML VIAL IV SCH ×2 (08:13→20:28)
[2020-06-06] MEDS: MELOXICAM 7.5 MG TAB PO SCH (08:13)
[2020-06-06] MEDS: SENNOSIDES 8.6 MG TAB PO SCH (08:14)
[2020-06-06] MEDS: POTASSIUM CHLORIDE ER 10 MEQ TAB.ER.PRT PO SCH (08:14)
[2020-06-06] MEDS: PANTOPRAZOLE 40 MG TABLET PO SCH (08:14)
[2020-06-06] MEDS: ATORVASTATIN 20 MG TAB PO SCH (08:14)
[2020-06-06] MEDS: SPIRONOLACTONE 25 MG TAB PO SCH (08:18)
[2020-06-06] MEDS: ASPIRIN 325 MG TAB PO SCH (08:18)
[2020-06-06] MEDS: polyethylene glycoL 3350 17 GM POWD.PACK PO SCH (08:18)
[2020-06-06 09:28] LABS: African American GFR (CKD) 110.2 (60.0-200.0); Anion Gap 5.6 mmol/L (4.00-12.00); BUN/Creat Ratio 36.25 Ratio (12.00-20.00); Calcium 8.9 mg/dL (8.7-10.3); Carbon Dioxide 26.4 mmol/L (21.6-31.8); Non-African American GFR(CKD) 95.1 (60.0-200.0); Potassium 4.3 mmol/L (3.5-5.5)
--- NOTE | 2020-06-06 15:55 | P.PN ---
Subjective 64-year-old male is admitted for bilateral lower extremity wounds and cellulitis significantly in the left lower extremity. Patient has nonhealing ulcers in both legs does have significant chronic venous insufficiency. Patient usually follows up with vascular surgery and wound clinic as an outpatient. Patient started having increasing redness and severe 10/10 pain in both lower extremities. Patient doesn't have any history of congestive heart failure. Patient is comparing of severe pain in both lower extremities. Patient used to be a smoker quit in 1999. Patient has an ulceration nonhealing on the dose last but of this second, third and fourth toes at the tarsometatarsal area. With significant redness in both lower extremities more pronounced in the left. 06/06/2020 Wound cultures are polymicrobial including gram-negative bacilli gram-positive cocci, patient is presently on Unasyn and infectious disease and restless surgery evaluated the patient. Patient pain is better swelling is bit better today. Patient electrolytes are within normal limits patient has Mihir bandages today. Patient will be continued on IV Lasix. Constitutional: Denied any fatigue denied any fever. Cardio vascular: denied any chest pain, palpitations Gastrointestinal denied any nausea vomiting Pulmonary: Denied any shortness of breath cough Neurologic denied any new focal deficits All inpatient medications were reviewed and appropriate changes in these medications as dictated in the interval history and assessment and plan. Objective - Vital Signs Vital signs: Vital Signs Temp 98.3 F 06/06/20 12:22 Pulse 72 06/06/20 12:22 Resp 20 06/06/20 12:22 BP 119/55 06/06/20 12:22 Pulse Ox 94 L 06/06/20 12:22 Intake & Output 06/05/20 06/06/20 06/06/20 18:59 06:59 18:59 Intake Total 500 Output Total 500 2000 Balance -500 -1500 Intake: Oral 500 Output: Urine 500 1999 Other: Voiding Method Toilet Toilet Toilet Urinal Urinal Urinal # Voids 1 2 4 - Exam PHYSICAL EXAMINATION: GENERAL: The patient is alert and oriented x3, not in any acute distress. Well developed, well nourished. HEENT: Pupils are round and equally reacting to light. EOMI. No scleral icterus. No conjunctival pallor. Normocephalic, atraumatic. No pharyngeal erythema. No thyromegaly. CARDIOVASCULAR: S1 and S2 present. No murmurs, rubs, or gallops. PULMONARY: Chest is clear to auscultation, no wheezing or crackles. ABDOMEN: Soft, nontender, nondistended, normoactive bowel sounds. No palpable organomegaly. MUSCULOSKELETAL: No joint swelling or deformity. EXTREMITIES: No cyanosis, clubbing, or pedal edema. NEUROLOGICAL: Gross neurological examination did not reveal any focal deficits. SKIN: patient has ulcers as mentioned above significant lightheadedness both lower extremity significance allied as the left lower extremity. Patient also has a small boil in the medial aspect of the left buttock area. Patient's legs are wrapped with Mihir bandages today - Labs CBC & Chem 7: 06/06/20 06:01 06/06/20 06:01 Labs: Abnormal Lab Results - Last 24 Hours (Table) 06/06/20 Range/Units 06:01 BUN 29.0 H (9.0-27.0) mg/dL BUN/Creatinine Ratio 36.25 H (12.00-20.00) Ratio Microbiology - Last 24 Hours (Table) 06/04/20 21:04 Blood Culture - Preliminary Blood No Growth after 24 hours 06/04/20 20:55 Blood Culture - Preliminary Blood No Growth after 24 hours Assessment and Plan Plan: -cellulitis and infected ulcers mostly stage II to 3 in the left lower extremity : Continue with the Unasyn . Wound cultures are showing gram-positive cocci gram-negative bacilli infectious disease evaluated the patient. Vascular surgery valuated the patient. Patient need to elevate his legs while sleeping which she does at home. -Extensive edema of both lower extremities secondary to chronic venous insufficiency ulcer which is Lasix to IV to make him have effective diuresis. -Pain management continue with present morphine patient will also be started on Toradol for pain. -Nonhealing ulcer of the left foot venous ulceration -Obesity non-hyperlipidemia -Hypertension -DVT prophylaxis with heparin.GI prophylaxis Protonix
--- NOTE | 2020-06-06 18:19 | PN ---
PROGRESS NOTE DATE OF SERVICE: 06/06/2020 REASON FOR FOLLOWUP: Bilateral foot wound and cellulitis. INTERVAL HISTORY: Patient is currently afebrile. He is feeling better. Breathing comfortably. Overall pain and discomfort to the foot area has decreased. No chest pain. No cough. No abdominal pain. No diarrhea. PHYSICAL EXAMINATION: Blood pressure 119/55, pulse of 72, temperature 98.3, he is 94% on room air. General description is a middle-aged male lying in bed in no distress. Respiratory system: Unlabored breathing, clear to auscultation anteriorly. Heart S1, S2. Regular rate and rhythm. Abdomen soft, no tenderness. Overall foot swelling and redness has decreased. The wound is drying out. No drainage was noticed. LABS: Wound cultures currently pending. DIAGNOSTIC IMPRESSION AND PLAN: Patient with bilateral foot wound and cellulitis, especially to the toes area. Cultures currently pending. To continue with Unasyn while waiting for the culture to finalize to determine discharge antibiotics. Continue supportive care. MMODL / IJN: [id number] /
[2020-06-06] MEDS: LATANOPROST 0.005% OPHTH DROPS 2.5 ML BTL BOTH EYES SCH (20:28)
[2020-06-06 20:47] VITALS: RESP 18
[2020-06-07] MEDS: AMPICILLIN-SULBACTAM 3 GM in SODIUM CHLORIDE 0.9% 100 ML IVPB SCH ×4 (06:11→23:31)
[2020-06-07] MEDS: ATORVASTATIN 20 MG TAB PO SCH (08:04)
[2020-06-07] MEDS: ASPIRIN 325 MG TAB PO SCH (08:04)
[2020-06-07] MEDS: MELOXICAM 7.5 MG TAB PO SCH (08:04)
[2020-06-07] MEDS: SPIRONOLACTONE 25 MG TAB PO SCH (08:04)
[2020-06-07] MEDS: CHOLECALCIFEROL 1,000 UNIT TAB PO SCH (08:04)
[2020-06-07] MEDS: HEPARIN SODIUM,PORCINE 5,000 UNIT/ML 1 ML VIAL SQ SCH ×3 (08:05→23:30)
[2020-06-07] MEDS: FUROSEMIDE 10 MG/ML 4 ML VIAL IV SCH ×2 (08:05→18:20)
[2020-06-07] MEDS: POTASSIUM CHLORIDE ER 10 MEQ TAB.ER.PRT PO SCH (08:05)
[2020-06-07] MEDS: polyethylene glycoL 3350 17 GM POWD.PACK PO SCH (08:05)
[2020-06-07] MEDS: PANTOPRAZOLE 40 MG TABLET PO SCH (08:09)
--- NOTE | 2020-06-07 09:03 | PN ---
PROGRESS NOTE This patient came with marked cellulitis and redness of both lower extremities with some superficial cellulitis involving the toes. The patient was treated with IV antibiotics with Silvadene cream and elevation of the both feet. Today, the cellulitis has improved. Swelling is almost gone. PLAN: If the patient is discharged from the hospital, I will follow up in office in 1 week. Recommend to continue with the Silvadene cream and leg elevation at home. MMODL / IJN: [id number] /
[2020-06-07 09:12] LABS: African American GFR (CKD) 116.4 (60.0-200.0); Anion Gap 5.8 mmol/L (4.00-12.00); BUN/Creat Ratio 27.14 Ratio (12.00-20.00); Calcium 8.5 mg/dL (8.7-10.3); Carbon Dioxide 27.2 mmol/L (21.6-31.8); Non-African American GFR(CKD) 100.4 (60.0-200.0); Potassium 4.5 mmol/L (3.5-5.5)
--- NOTE | 2020-06-07 14:59 | P.PN ---
Subjective 64-year-old male is admitted for bilateral lower extremity wounds and cellulitis significantly in the left lower extremity. Patient has nonhealing ulcers in both legs does have significant chronic venous insufficiency. Patient usually follows up with vascular surgery and wound clinic as an outpatient. Patient started having increasing redness and severe 10/10 pain in both lower extremities. Patient doesn't have any history of congestive heart failure. Patient is comparing of severe pain in both lower extremities. Patient used to be a smoker quit in 1999. Patient has an ulceration nonhealing on the dose last but of this second, third and fourth toes at the tarsometatarsal area. With significant redness in both lower extremities more pronounced in the left. 06/06/2020 Wound cultures are polymicrobial including gram-negative bacilli gram-positive cocci, patient is presently on Unasyn and infectious disease and restless surgery evaluated the patient. Patient pain is better swelling is bit better today. Patient electrolytes are within normal limits patient has Mihir bandages today. Patient will be continued on IV Lasix. 06/07/2020 Patient's wound cultures are still pending also get the wound cultures decision regarding antibiotics can be made and patient can be discharged with follow-ups in the wound care clinic and IV as an outpatient. Constitutional: Denied any fatigue denied any fever. Cardio vascular: denied any chest pain, palpitations Gastrointestinal denied any nausea vomiting Pulmonary: Denied any shortness of breath cough Neurologic denied any new focal deficits All inpatient medications were reviewed and appropriate changes in these medications as dictated in the interval history and assessment and plan. Objective - Vital Signs Vital signs: Vital Signs Temp 98.2 F 06/07/20 12:01 Pulse 75 06/07/20 12:01 Resp 18 06/07/20 12:01 BP 169/75 06/07/20 13:31 Pulse Ox 93 L 06/07/20 12:01 Intake & Output 06/06/20 06/07/20 06/07/20 18:59 06:59 18:59 Intake Total 200 Output Total 2450 Balance -2250 Intake: Intake, IV Titration 200 Amount Ampicillin-Sulbactam 3 gm 200 In Sodium Chloride 0.9% 100 ml @ 200 mls/hr IVPB Q6HR [facility] Rx#:[id number] Output: Urine 2450 Other: Voiding Method Toilet Toilet Toilet Urinal Urinal Urinal # Voids 4 2 - Exam PHYSICAL EXAMINATION: GENERAL: The patient is alert and oriented x3, not in any acute distress. Well developed, well nourished. HEENT: Pupils are round and equally reacting to light. EOMI. No scleral icterus. No conjunctival pallor. Normocephalic, atraumatic. No pharyngeal erythema. No thyromegaly. CARDIOVASCULAR: S1 and S2 present. No murmurs, rubs, or gallops. PULMONARY: Chest is clear to auscultation, no wheezing or crackles. ABDOMEN: Soft, nontender, nondistended, normoactive bowel sounds. No palpable organomegaly. MUSCULOSKELETAL: No joint swelling or deformity. EXTREMITIES: No cyanosis, clubbing, or pedal edema. NEUROLOGICAL: Gross neurological examination did not reveal any focal deficits. SKIN: patient has ulcers as mentioned above significant lightheadedness both lower extremity significance allied as the left lower extremity. Patient also has a small boil in the medial aspect of the left buttock area. Patient's legs are wrapped with Mihir bandages today - Labs CBC & Chem 7: 06/06/20 06:01 06/07/20 05:58 Labs: Abnormal Lab Results - Last 24 Hours (Table) 06/07/20 Range/Units 05:58 BUN/Creatinine Ratio 27.14 H (12.00-20.00) Ratio Calcium 8.5 L (8.7-10.3) mg/dL Microbiology - Last 24 Hours (Table) 06/04/20 21:04 Blood Culture - Preliminary Blood No Growth after 48 hours 06/04/20 20:55 Blood Culture - Preliminary Blood No Growth after 48 hours 06/04/20 23:49 Anaerobic Culture - Final Foot - Right 06/04/20 23:49 Anaerobic Culture - Final Foot - Left 06/04/20 23:49 Gram Stain - Final Foot - Left Wound Culture - Final 06/04/20 23:49 Gram Stain - Final Foot - Right Wound Culture - Final Assessment and Plan Plan: -cellulitis and infected ulcers mostly stage II to 3 in the left lower extremity : Continue with the Unasyn . Wound cultures are showing gram-positive cocci gram-negative bacilli infectious disease evaluated the patient. Vascular surgery evaluated the patient. Patient need to elevate his legs while sleeping which she does at home. -Extensive edema of both lower extremities secondary to chronic venous insufficiency ulcer which is Lasix to IV to make him have effective diuresis. -Pain management continue with present morphine patient will also be started on Toradol for pain. -Nonhealing ulcer of the left foot venous ulceration -Obesity non-hyperlipidemia -Hypertension -DVT prophylaxis with heparin.GI prophylaxis Protonix
[2020-06-07] MEDS: LATANOPROST 0.005% OPHTH DROPS 2.5 ML BTL BOTH EYES SCH (21:06)
[2020-06-08] MEDS: AMPICILLIN-SULBACTAM 3 GM in SODIUM CHLORIDE 0.9% 100 ML IVPB SCH ×2 (05:45→12:22)
--- NOTE | 2020-06-08 06:24 | PN ---
PROGRESS NOTE DATE OF SERVICE: 06/07/2020 REASON FOR FOLLOWUP: Bilateral feet ulcer and cellulitis. INTERVAL HISTORY: The patient is currently afebrile. He is breathing comfortably. Pain is currently controlled. No vomiting. No diarrhea. No new symptoms. PHYSICAL EXAMINATION: Blood pressure 131/80 with a pulse of 75, temperature 98.2. He is 93% on room air. General description is a middle-aged male lying in bed in no distress. Examination of bilateral lower extremities did show 2+ edema of feet with some erythema to the left leg. However, overall ulceration on the toe area has dried out and no drainage. LABS: Creatinine 0.7. Local culture so far negative. DIAGNOSTIC IMPRESSION AND PLAN: Patient with bilateral feet superficial ulceration and cellulitis. Culture negative for resistant pathogen. Patient is covered with Unasyn, finishing therapy with oral Augmentin. Local care to continue as per Surgery. Continue with supportive care. MMODL / IJN: [id number] /
[2020-06-08] MEDS: ATORVASTATIN 20 MG TAB PO SCH (08:11)
[2020-06-08] MEDS: polyethylene glycoL 3350 17 GM POWD.PACK PO SCH (08:11)
[2020-06-08] MEDS: ASPIRIN 325 MG TAB PO SCH (08:11)
[2020-06-08] MEDS: POTASSIUM CHLORIDE ER 10 MEQ TAB.ER.PRT PO SCH (08:11)
[2020-06-08] MEDS: MELOXICAM 7.5 MG TAB PO SCH (08:11)
[2020-06-08] MEDS: PANTOPRAZOLE 40 MG TABLET PO SCH (08:11)
[2020-06-08] MEDS: SPIRONOLACTONE 25 MG TAB PO SCH (08:11)
[2020-06-08] MEDS: CHOLECALCIFEROL 1,000 UNIT TAB PO SCH (08:11)
[2020-06-08] MEDS: HEPARIN SODIUM,PORCINE 5,000 UNIT/ML 1 ML VIAL SQ SCH (08:12)
[2020-06-08 10:19] LABS: African American GFR (CKD) 110.2 (60.0-200.0); Anion Gap 7.1 mmol/L (4.00-12.00); BUN/Creat Ratio 18.75 Ratio (12.00-20.00); Calcium 8.8 mg/dL (8.7-10.3); Carbon Dioxide 25.9 mmol/L (21.6-31.8); Non-African American GFR(CKD) 95.1 (60.0-200.0); Potassium 4.6 mmol/L (3.5-5.5)
[2020-06-08] MEDS: FUROSEMIDE 10 MG/ML 4 ML VIAL IV SCH (10:28)
[2020-06-08 13:58] VITALS: BP 125/85; PULSE 64; TEMP 98.5
--- NOTE | 2020-06-08 14:51 | P.DS ---
Providers Date of admission: 06/04/20 17:16 Attending physician: Tony Kelly Consults: 06/04/20 20:31 Consult Physician Routine Consulting Provider: Deejay Kirby Consult Reason/Comments: Bilateral toe wounds Do you want consulting provider notified?: Yes, Notify in am 06/05/20 11:24 Consult Physician Routine Consulting Provider: Jayden Rolon Consult Reason/Comments: ulceration left foot - seen in past Do you want consulting provider notified?: Yes Primary care physician: [facility] Course: 64-year-old male is admitted for bilateral lower extremity wounds and cellulitis significantly in the left lower extremity. Patient has nonhealing ulcers in both legs does have significant chronic venous insufficiency. Patient usually follows up with vascular surgery and wound clinic as an outpatient. Patient started having increasing redness and severe 10/10 pain in both lower extremities. Patient doesn't have any history of congestive heart failure. Patient is comparing of severe pain in both lower extremities. Patient used to be a smoker quit in 1999. Patient has an ulceration nonhealing on the dose last but of this second, third and fourth toes at the tarsometatarsal area. With significant redness in both lower extremities more pronounced in the left. 06/06/2020 Wound cultures are polymicrobial including gram-negative bacilli gram-positive cocci, patient is presently on Unasyn and infectious disease and restless surgery evaluated the patient. Patient pain is better swelling is bit better today. Patient electrolytes are within normal limits patient has Mihir bandages today. Patient will be continued on IV Lasix. 06/07/2020 Patient's wound cultures are still pending also get the wound cultures decision regarding antibiotics can be made and patient can be discharged with follow-ups in the wound care clinic and IV as an outpatient. 06/08/2020 Patient won't cultures are positive and the fact polymicrobial infectious disease is recommending Augmentin. Patient is noncompliant with the recommendations and patient is complaining of vertigo with discharged on Antivert. Symptoms consistent with benign positional vertigo. Patient will follow up in wound care clinic with the vascular surgery and infectious disease. PHYSICAL EXAMINATION: GENERAL: The patient is alert and oriented x3, not in any acute distress. Well developed, well nourished. HEENT: Pupils are round and equally reacting to light. EOMI. No scleral icterus. No conjunctival pallor. Normocephalic, atraumatic. No pharyngeal erythema. No thyromegaly. CARDIOVASCULAR: S1 and S2 present. No murmurs, rubs, or gallops. PULMONARY: Chest is clear to auscultation, no wheezing or crackles. ABDOMEN: Soft, nontender, nondistended, normoactive bowel sounds. No palpable organomegaly. MUSCULOSKELETAL: No joint swelling or deformity. EXTREMITIES: No cyanosis, clubbing, or pedal edema. NEUROLOGICAL: Gross neurological examination did not reveal any focal deficits. SKIN: patient has ulcers in both lower extremity cellulitis is significant of the left lower extremity Assessment and Plan Plan: -cellulitis and infected ulcers mostly stage II to 3 in the left lower extremity : Continue with the Unasyn . Wound cultures are showing gram-positive cocci gram-negative bacilli infectious disease evaluated the patient. Patient will be discharged on Augmentin -Benign push vertigo -Extensive edema of both lower extremities secondary to chronic venous insufficiency ulcer , patient will continue his Lasix and Aldactone -Pain management continue with present morphine patient will also be started on Toradol for pain. -Nonhealing ulcer of the left foot venous ulceration -Obesity -hyperlipidemia -Hypertension Plan - Discharge Summary Discharge Rx Participant: No New Discharge Prescriptions: New Meclizine [Antivert] 25 mg PO TID PRN #20 tab PRN Reason: Vertigo Amoxic-Pot Clav 875-125Mg [Augmentin 875-125] 1 tab PO Q12HR 10 Days #20 tab Continue Pyridoxine HCl (Vitamin B6) [Vitamin B-6] 100 mg PO DAILY Aspirin 325 mg PO DAILY Furosemide [Lasix] 40 mg PO BID Atorvastatin [Lipitor] 20 mg PO DAILY Turmeric Powder 1 tsp PO DAILY Nitroglycerin Sl Tabs [Nitrostat] 0.4 mg SL Q5M PRN PRN Reason: Chest Pain HYDROcodone/APAP 5-325MG [[place] 5-325] 1 tab PO Q6H PRN PRN Reason: Pain Meloxicam [Mobic] 15 mg PO DAILY Latanoprost Ophth [Xalatan 0.005%] 1 drop BOTH EYES HS Cholecalciferol (Vitamin D3) [Vitamin D3] 125 mcg PO DAILY Potassium Chloride 10 meq PO DAILY Cetirizine HCl 10 mg PO DAILY PRN PRN Reason: Allergy Symptoms Calcium/Magnesium/Zinc [Pkrjsvt-Ikbpktizk-Bfjx Tablet] 2 tab PO DAILY Vitamin A Acetate [Vitamin A] 10,000 unit SL DAILY Cayenne Pepper Powder 2 tsp PO DAILY Spironolactone [Aldactone] 25 mg PO DAILY [place]-3 600mg 1,200 mg PO DAILY Discontinued Ibuprofen [Motrin Ib] 800 mg PO TID Potassium Gluconate 198 mg PO BID Doxycycline Hyclate 100 mg PO BID Discharge Medication List Aspirin 325 mg PO DAILY 03/09/20 [History] Atorvastatin [Lipitor] 20 mg PO DAILY 03/09/20 [History] Furosemide [Lasix] 40 mg PO BID 03/09/20 [History] Pyridoxine HCl (Vitamin B6) [Vitamin B-6] 100 mg PO DAILY 03/09/20 [History] Turmeric Powder 1 tsp PO DAILY 03/09/20 [History] Calcium/Magnesium/Zinc [Flwrnld-Eqmlirwqv-Jyku Tablet] 2 tab PO DAILY 06/04/20 [History] Cayenne Pepper Powder 2 tsp PO DAILY 06/04/20 [History] Cetirizine HCl 10 mg PO DAILY PRN 06/04/20 [History] Cholecalciferol (Vitamin D3) [Vitamin D3] 125 mcg PO DAILY 06/04/20 [History] HYDROcodone/APAP 5-325MG [[place] 5-325] 1 tab PO Q6H PRN 06/04/20 [History] Latanoprost Ophth [Xalatan 0.005%] 1 drop BOTH EYES HS 06/04/20 [History] Meloxicam [Mobic] 15 mg PO DAILY 06/04/20 [History] Nitroglycerin Sl Tabs [Nitrostat] 0.4 mg SL Q5M PRN 06/04/20 [History] [place]-3 600mg 1,200 mg PO DAILY 06/04/20 [History] Potassium Chloride 10 meq PO DAILY 06/04/20 [History] Spironolactone [Aldactone] 25 mg PO DAILY 06/04/20 [History] Vitamin A Acetate [Vitamin A] 10,000 unit SL DAILY 06/04/20 [History] Amoxic-Pot Clav 875-125Mg [Augmentin 875-125] 1 tab PO Q12HR 10 Days #20 tab 06/08/20 [Rx] Meclizine [Antivert] 25 mg PO TID PRN #20 tab 06/08/20 [Rx] Follow up Appointment(s)/Referral(s): Nirmala Boswell III, MD [Primary Care Provider] - 1 Week [facility], [NON-STAFF] - 1 Week Jayden Rolon MD [STAFF PHYSICIAN] - 06/18/20 1:00 pm (bilateral leg venous ultrasound) Deejay Kirby MD [STAFF PHYSICIAN] - 1 Week Activity/Diet/Wound Care/Special Instructions: Dressing Changes to both lower extremities/feet daily: Silvadene cream, kerlex, mihir wrap; keep elevated. Discharge Disposition: HOME SELF-CARE
--- NOTE | 2020-06-08 22:07 | PN ---
PROGRESS NOTE DATE OF SERVICE: 06/08/2020 REASON FOR FOLLOWUP: Cellulitis of bilateral feet. INTERVAL HISTORY: The patient was seen on rounds this morning. The patient overall is feeling better, breathing comfortably. Overall pain and discomfort to the foot area has decreased. has slightly decreased as well as redness. No drainage. No abdominal pain or diarrhea. PHYSICAL EXAMINATION: Blood pressure 125/85 with a pulse of 64, temperature 98.5. He is 93% on room air. General description is a middle-aged male lying in bed in no distress. RESPIRATORY SYSTEM: Unlabored breathing. Clear to auscultation anteriorly. HEART: S1, S2. Regular rate and rhythm. No added sound. BILATERAL FEET: Swelling and redness have improved. No drainage. LABS: Wound culture negative for any resistant pathogen. Creatinine 0.8. DIAGNOSTIC IMPRESSION AND PLAN: Patient with bilateral foot wounds and question of cellulitis. Culture has been negative for resistant pathogen. Recommending Augmentin 875 b.i.d. for 10 days. Local care to continue as ordered and close outpatient followup. MMODL / IJN: [id number] /
== END 2020-06-08 16:12 | disposition home health service (06) | DRG 603 ==
LOC: 6NMEDSUR 17:16
PROVIDERS: ADMIT Internal Medicine; ATTEND Internal Medicine
DX: L03.116 Cellulitis of left lower limb (principal); I87.313 Chronic venous hypertension (idiopathic) with ulcer of bilateral lower extremity; Z68.42 Body mass index [BMI] 45.0-49.9, adult; L03.115 Cellulitis of right lower limb; L97.519 Non-pressure chronic ulcer of other part of right foot with unspecified severity; E11.621 Type 2 diabetes mellitus with foot ulcer; L02.32 Furuncle of buttock; E66.9 Obesity, unspecified; L97.529 Non-pressure chronic ulcer of other part of left foot with unspecified severity; G89.29 Other chronic pain; I10 Essential (primary) hypertension; H81.10 Benign paroxysmal vertigo, unspecified ear; E78.5 Hyperlipidemia, unspecified; Z91.19 Patient's noncompliance with other medical treatment and regimen; Z79.82 Long term (current) use of aspirin; Z79.1 Long term (current) use of non-steroidal anti-inflammatories (NSAID); Z79.899 Other long term (current) drug therapy; Z87.891 Personal history of nicotine dependence; Z87.39 Personal history of other diseases of the musculoskeletal system and connective tissue; Z98.890 Other specified postprocedural states
CPT/HCPCS: 71046; 80048; 80053; 85025; 85027; 85610; 87040; 87070; 87075; 87205

== ENCOUNTER 2020-06-11 17:26 | Inpatient (IN) | payer OTHER ==
[2020-06-11] MEDS ORDERED: SODIUM CHLORIDE 0.9% 500 ML 500 ML IV SCH (19:30)
--- NOTE | 2020-06-11 20:24 | XR ---
EXAMINATION TYPE: XR foot complete LT DATE OF EXAM: 06/11/2020 COMPARISON: NONE HISTORY: Redness and swelling TECHNIQUE: 3 views FINDINGS: There is soft tissue swelling of the forefoot. Metatarsals are intact. The toes appear inta ct. IMPRESSION: Soft tissue swelling. No fracture seen.
[2020-06-11 20:45] LABS: Basophils # (A) 0.1 k/uL (0-0.2); Basophils % (A) 1 %; Eosinophils # (A) 0.6 k/uL (0-0.7); Eosinophils % (A) 7 %; HCT 44.3 % (39.0-53.0); HGB 14.7 gm/dL (13.0-17.5); Lymphocytes # (A) 2.5 k/uL (1.0-4.8); Lymphocytes % (A) 28 %; MCH 30.3 pg (25.0-35.0); MCHC 33.2 g/dL (31.0-37.0); MCV 91.2 fL (80.0-100.0); Mean Platelet Volume 6.6; Monocytes # (A) 0.5 k/uL (0-1.0); Monocytes % (A) 6 %; Neutrophils % (A) 57 %; Platelet Count 280 k/uL (150-450); RBC 4.85 m/uL (4.30-5.90); RDW 13.6 % (11.5-15.5); WBC 8.8 k/uL (3.8-10.6)
[2020-06-11 20:53] LABS: INR 0.9 (<1.2); Prothrombin Time 9.6 sec (9.0-12.0)
--- NOTE | 2020-06-11 20:58 | ED ---
General Adult HPI - General Chief complaint: Extremity Problem,Nontraumatic Stated complaint: Foot discoloration, sent by dr Time Seen by Provider: 06/11/20 19:16 Source: patient, RN notes reviewed Mode of arrival: wheelchair Limitations: no limitations - History of Present Illness Initial comments: 64-year-old male with a past medical history of hyperlipidemia, hypertension, obesity, venous insufficiency, cellulitis presents to the emergency room for a chief complaint of worsening infection of the left foot. Patient reports that he was admitted to the hospital for cellulitis and IV antibiotics for a few days. He was discharged home 2 nights ago. He saw his primary care provider today who thought this looked worse. They wanted him to be seen back in the hospital. Patient does agree about his foot looks worse and that the infection is not improving at home. He denies fevers or chills. He does admit that the left foot is starting to swell more as well and caused more pain.Patient has no other complaints at this time including shortness of breath, chest pain, abdominal pain, nausea or vomiting, headache, or visual changes. - Related Data Home Medications Medication Instructions Recorded Confirmed Aspirin 325 mg PO DAILY 03/09/20 06/11/20 Furosemide [Lasix] 40 mg PO BID 03/09/20 06/11/20 Pyridoxine HCl (Vitamin B6) 100 mg PO DAILY 03/09/20 06/11/20 [Vitamin B-6] Turmeric Powder 1 tsp PO DAILY 03/09/20 06/11/20 Calcium/Magnesium/Zinc 2 tab PO DAILY 06/04/20 06/11/20 [Pimbfaa-Nwbmvfwdz-Ohls Tablet] Cayenne Pepper Powder 2 tsp PO DAILY 06/04/20 06/11/20 Cetirizine HCl 10 mg PO DAILY PRN 06/04/20 06/11/20 Cholecalciferol (Vitamin D3) 125 mcg PO DAILY 06/04/20 06/11/20 [Vitamin D3] HYDROcodone/APAP 5-325MG [[place] 1 tab PO Q6H PRN 06/04/20 06/11/20 5-325] Latanoprost Ophth [Xalatan 0.005%] 1 drop BOTH EYES HS 06/04/20 06/11/20 Meloxicam [Mobic] 15 mg PO DAILY 06/04/20 06/11/20 Nitroglycerin Sl Tabs [Nitrostat] 0.4 mg SL Q5M PRN 06/04/20 06/11/20 [place]-3 600mg 1,200 mg PO DAILY 06/04/20 06/11/20 Potassium Chloride 10 meq PO DAILY 06/04/20 06/11/20 Spironolactone [Aldactone] 25 mg PO DAILY 06/04/20 06/11/20 Vitamin A Acetate [Vitamin A] 10,000 unit SL DAILY 06/04/20 06/11/20 Amoxic-Pot Clav 875-125Mg 1 tab PO Q12H 06/11/20 06/11/20 [Augmentin 875-125] Previous Rx's Medication Instructions Recorded Meclizine [Antivert] 25 mg PO TID PRN #20 tab 06/08/20 Allergies Allergy/AdvReac Type Severity Reaction Status Date / Time No Known Allergies Allergy Verified 06/11/20 20:32 Review of Systems ROS Statement: Those systems with pertinent positive or pertinent negative responses have been documented in the HPI. ROS Other: All systems not noted in ROS Statement are negative. Past Medical History Past Medical History: Hyperlipidemia, Hypertension Additional Past Medical History / Comment(s): Edema BLE, stress test abn, noctur ia, ex-smoker, obseity, venous insufficiency, chronic ulcer of leg, pressure in eyes, cellulitis, chronic pain, History of Any Multi-Drug Resistant Organisms: None Reported Past Surgical History: Orthopedic Surgery Additional Past Surgical History / Comment(s): Rt middle finger surgery R/T injury, EGD, colonoscopy but patient states hes never had any scopes Past Anesthesia/Blood Transfusion Reactions: No Reported Reaction Past Psychological History: No Psychological Hx Reported Smoking Status: Former smoker Past Alcohol Use History: Occasional Past Drug Use History: None Reported - Past Family History Mother Family Medical History: No Reported History General Exam Limitations: no limitations General appearance: alert, in no apparent distress Head exam: Present: atraumatic, normocephalic, normal inspection Eye exam: Present: normal appearance, PERRL, EOMI. Absent: scleral icterus, conjunctival injection, periorbital swelling ENT exam: Present: normal exam, mucous membranes moist Neck exam: Present: normal inspection, full ROM. Absent: tenderness, meningismus, lymphadenopathy Respiratory exam: Present: normal lung sounds bilaterally. Absent: respiratory distress, wheezes, rales, rhonchi, stridor Cardiovascular Exam: Present: regular rate, normal rhythm, normal heart sounds. Absent: systolic murmur, diastolic murmur, rubs, gallop, clicks GI/Abdominal exam: Present: soft, normal bowel sounds. Absent: distended, tenderness, guarding, rebound, rigid Extremities exam: Present: tenderness (Tenderness to the dorsum of the left foot.), normal capillary refill (Capillary refill less than 2 seconds in the left foot.), pedal edema (Mild bilateral pedal edema worse in the left foot.), other (Erythema noted to the left dorsal forefoot with edema. Patient has purulent material noted on the second and third digits.). Absent: calf tenderness Neurological exam: Present: alert Course Vital Signs 06/11/20 17:34 Temperature 98.5 F Pulse Rate 69 Respiratory 18 Rate Blood Pressure 141/64 O2 Sat by Pulse 96 Oximetry Medical Decision Making - Medical Decision Making Vitals are stable. CBC unremarkable. CMP does show evidence of dehydration. Discussed findings with patient. Patient is concerned that his foot infection is worsening. He does state that it looks worse than when he was discharged from the hospital. Dr. Che also evaluated patient. At this time we recommend further management and patient for gangrene of the left second and third toes. Patient was started on Unasyn and vancomycin as he was on unasyn last time. Patient will be admitted for further management. - Lab Data Result diagrams: 06/11/20 19:30 06/11/20 19:30 Lab Results 06/11/20 06/11/20 06/11/20 Range/Units 19:30 19:30 19:30 WBC 8.8 (3.8-10.6) k/uL RBC 4.85 (4.30-5.90) m/uL Hgb 14.7 (13.0-17.5) gm/dL Hct 44.3 (39.0-53.0) % MCV 91.2 (80.0-100.0) fL MCH 30.3 (25.0-35.0) pg MCHC 33.2 (31.0-37.0) g/dL RDW 13.6 (11.5-15.5) % Plt Count 280 (150-450) k/uL MPV 6.6 Neutrophils % 57 % Lymphocytes % 28 % Monocytes % 6 % Eosinophils % 7 % Basophils % 1 % Neutrophils # 5.0 (1.3-7.7) k/uL Lymphocytes # 2.5 (1.0-4.8) k/uL Monocytes # 0.5 (0-1.0) k/uL Eosinophils # 0.6 (0-0.7) k/uL Basophils # 0.1 (0-0.2) k/uL PT 9.6 (9.0-12.0) sec INR 0.9 (<1.2) Sodium 139 (137-145) mmol/L Potassium 4.4 (3.5-5.1) mmol/L Chloride 104 (98-107) mmol/L Carbon Dioxide 31 H (22-30) mmol/L Anion Gap 4 mmol/L BUN 26 H (9-20) mg/dL Creatinine 1.05 (0.66-1.25) mg/dL Est GFR (CKD-EPI)AfAm 88 (>60 ml/min/1.73 sqM) Est GFR (CKD-EPI)NonAf 76 (>60 ml/min/1.73 sqM) Glucose 91 (74-99) mg/dL Plasma Lactic Acid Rodolfo (0.7-2.0) mmol/L Calcium 9.1 (8.4-10.2) mg/dL Total Bilirubin 0.7 (0.2-1.3) mg/dL AST 39 (17-59) U/L ALT 70 H (4-49) U/L Alkaline Phosphatase 85 (38-126) U/L C-Reactive Protein 9.3 (<10.0) mg/L Total Protein 7.0 (6.3-8.2) g/dL Albumin 3.8 (3.5-5.0) g/dL 06/11/20 Range/Units 19:30 WBC (3.8-10.6) k/uL RBC (4.30-5.90) m/uL Hgb (13.0-17.5) gm/dL Hct (39.0-53.0) % MCV (80.0-100.0) fL MCH (25.0-35.0) pg MCHC (31.0-37.0) g/dL RDW (11.5-15.5) % Plt Count (150-450) k/uL MPV Neutrophils % % Lymphocytes % % Monocytes % % Eosinophils % % Basophils % % Neutrophils # (1.3-7.7) k/uL Lymphocytes # (1.0-4.8) k/uL Monocytes # (0-1.0) k/uL Eosinophils # (0-0.7) k/uL Basophils # (0-0.2) k/uL PT (9.0-12.0) sec INR (<1.2) Sodium (137-145) mmol/L Potassium (3.5-5.1) mmol/L Chloride (98-107) mmol/L Carbon Dioxide (22-30) mmol/L Anion Gap mmol/L BUN (9-20) mg/dL Creatinine (0.66-1.25) mg/dL Est GFR (CKD-EPI)AfAm (>60 ml/min/1.73 sqM) Est GFR (CKD-EPI)NonAf (>60 ml/min/1.73 sqM) Glucose (74-99) mg/dL Plasma Lactic Acid Rodolfo 0.8 (0.7-2.0) mmol/L Calcium (8.4-10.2) mg/dL Total Bilirubin (0.2-1.3) mg/dL AST (17-59) U/L ALT (4-49) U/L Alkaline Phosphatase (38-126) U/L C-Reactive Protein (<10.0) mg/L Total Protein (6.3-8.2) g/dL Albumin (3.5-5.0) g/dL Disposition Clinical Impression: Cellulitis, Gangrene Disposition: ADMITTED IP TO THIS HOSP Is patient prescribed a controlled substance at d/c from ED?: No Referrals: Nirmala Boswell III, MD [Primary Care Provider] - 1-2 days Time of Disposition: 21:42
[2020-06-11 21:08] LABS: Albumin 3.8 g/dL (3.5-5.0); C Reactive Protein 9.3 mg/L (<10.0); Calcium 9.1 mg/dL (8.4-10.2); Potassium 4.4 mmol/L (3.5-5.1); Total Bilirubin 0.7 mg/dL (0.2-1.3)
[2020-06-11] MEDS ORDERED: AMPICILLIN-SULBACTAM 3 GM in SODIUM CHLORIDE 0.9% 100 ML IVPB STA (21:34)
[2020-06-11] MEDS ORDERED: VANCOMYCIN IV PER PHARMACY 1 EACH MISC MISCELLANE PRN (21:34)
[2020-06-11] MEDS ORDERED: NALOXONE 0.4 MG/ML 1 ML VIAL IV PRN (21:37)
[2020-06-11] MEDS: SODIUM CHLORIDE 0.9% 1,000 ML IV SCH (21:54)
[2020-06-11] MEDS ORDERED: VANCOMYCIN 2,000 MG in SODIUM CHLORIDE 0.9% 500 ML 500 ML IVPB ONE (23:00)
[2020-06-12] MEDS ORDERED: AMPICILLIN-SULBACTAM 3 GM in SODIUM CHLORIDE 0.9% 100 ML IVPB SCH (04:00)
[2020-06-12] MEDS ORDERED: MECLIZINE 25 MG TAB PO PRN (09:43)
[2020-06-12] MEDS ORDERED: HYDROcodone/APAP 5-325MG 1 EACH TAB PO PRN (09:43)
[2020-06-12] MEDS ORDERED: NITROGLYCERIN SL TABS 0.4 MG TAB SUBLINGUAL PRN (09:43)
--- NOTE | 2020-06-12 10:57 | P.DS ---
Providers Date of admission: 06/11/20 21:38 Attending physician: Vy Gonsalez MD Consults: 06/11/20 21:37 Consult Physician Routine Consulting Provider: Deejay Kirby Consult Reason/Comments: gangrene Do you want consulting provider notified?: Yes 06/12/20 09:43 Consult Physician Routine Consulting Provider: Jayden Rolon Consult Reason/Comments: Foot infection Do you want consulting provider notified?: Yes [facility]: Refer to my HPI for further details Plan - Discharge Summary Discharge Rx Participant: Yes New Discharge Prescriptions: Continue Pyridoxine HCl (Vitamin B6) [Vitamin B-6] 100 mg PO DAILY Aspirin 325 mg PO DAILY Turmeric Powder 1 tsp PO DAILY Nitroglycerin Sl Tabs [Nitrostat] 0.4 mg SL Q5M PRN PRN Reason: Chest Pain HYDROcodone/APAP 5-325MG [[place] 5-325] 1 tab PO Q6H PRN PRN Reason: Pain Meloxicam [Mobic] 15 mg PO DAILY Latanoprost Ophth [Xalatan 0.005%] 1 drop BOTH EYES HS Cholecalciferol (Vitamin D3) [Vitamin D3] 125 mcg PO DAILY Potassium Chloride 10 meq PO DAILY Cetirizine HCl 10 mg PO DAILY PRN PRN Reason: Allergy Symptoms Calcium/Magnesium/Zinc [Sodocvd-Suwglrktl-Zcbk Tablet] 2 tab PO DAILY Vitamin A Acetate [Vitamin A] 10,000 unit SL DAILY Cayenne Pepper Powder 2 tsp PO DAILY Spironolactone [Aldactone] 25 mg PO DAILY [place]-3 600mg 1,200 mg PO DAILY Meclizine [Antivert] 25 mg PO TID PRN #20 tab PRN Reason: Vertigo Amoxic-Pot Clav 875-125Mg [Augmentin 875-125] 1 tab PO Q12H Furosemide [Lasix] 40 mg PO BID #0 Discharge Medication List Aspirin 325 mg PO DAILY 03/09/20 [History] Pyridoxine HCl (Vitamin B6) [Vitamin B-6] 100 mg PO DAILY 03/09/20 [History] Turmeric Powder 1 tsp PO DAILY 03/09/20 [History] Calcium/Magnesium/Zinc [Ckoigre-Dvhhzpnnf-Actl Tablet] 2 tab PO DAILY 06/04/20 [History] Cayenne Pepper Powder 2 tsp PO DAILY 06/04/20 [History] Cetirizine HCl 10 mg PO DAILY PRN 06/04/20 [History] Cholecalciferol (Vitamin D3) [Vitamin D3] 125 mcg PO DAILY 06/04/20 [History] HYDROcodone/APAP 5-325MG [[place] 5-325] 1 tab PO Q6H PRN 06/04/20 [History] Latanoprost Ophth [Xalatan 0.005%] 1 drop BOTH EYES HS 06/04/20 [History] Meloxicam [Mobic] 15 mg PO DAILY 06/04/20 [History] Nitroglycerin Sl Tabs [Nitrostat] 0.4 mg SL Q5M PRN 06/04/20 [History] [place]-3 600mg 1,200 mg PO DAILY 06/04/20 [History] Potassium Chloride 10 meq PO DAILY 06/04/20 [History] Spironolactone [Aldactone] 25 mg PO DAILY 06/04/20 [History] Vitamin A Acetate [Vitamin A] 10,000 unit SL DAILY 06/04/20 [History] Meclizine [Antivert] 25 mg PO TID PRN #20 tab 06/08/20 [Rx] Amoxic-Pot Clav 875-125Mg [Augmentin 875-125] 1 tab PO Q12H 06/11/20 [History] Furosemide [Lasix] 40 mg PO BID #0 06/12/20 [Rx] Follow up Appointment(s)/Referral(s): Nirmala Boswell III, MD [Primary Care Provider] - 3 Days Jayden Rolon MD [STAFF PHYSICIAN] - 3 Days Deejay Kirby MD [STAFF PHYSICIAN] - 3 Days
--- NOTE | 2020-06-12 10:57 | P.HPIM ---
History of Present Illness 61-year-old obese male with venous insufficiency came in with the severe cellulitis of the left foot and infected wounds of the left foot. Patient was discharged on Augmentin depending on the wound cultures that were done during his last hospitalization. The patient has seen his primary care physician who believed the that patient infection may be worse because of which patient was sent in to ER and patient was subsequently admitted and patient is presently on vancomycin and Unasyn. Upon examination patient cellulitis of the left foot is actually better, patient will be evaluated by infectious disease and vascular surgery again and if they cleared him patient will be discharged. Patient doesn't have any fever chills. Patient swelling in both legs significantly improved. Review of Systems REVIEW OF SYSTEMS: CONSTITUTIONAL: No fever, no malaise, no fatigue. HEENT: No recent visual problems or hearing problems. Denied any sore throat. CARDIOVASCULAR: No chest pain, orthopnea, PND, no palpitations, no syncope. PULMONARY: No shortness of breath, no cough, no hemoptysis. GASTROINTESTINAL: No diarrhea, no nausea, no vomiting, no abdominal pain. NEUROLOGICAL: No headaches, no weakness, no numbness. HEMATOLOGICAL: Denies any bleeding or petechiae. GENITOURINARY: Denies any burning micturition, frequency, or urgency. MUSCULOSKELETAL/RHEUMATOLOGICAL: Denies any joint pain, swelling, or any muscle pain. ENDOCRINE: Denies any polyuria or polydipsia. The rest of the 14-point review of systems is negative. Past Medical History Past Medical History: Hyperlipidemia, Hypertension Additional Past Medical History / Comment(s): Edema BLE, stress test abn, nocturia, ex-smoker, obseity, venous insufficiency, chronic ulcer of leg, pressure in eyes, cellulitis, chronic pain, History of Any Multi-Drug Resistant Organisms: None Reported Past Surgical History: Orthopedic Surgery Additional Past Surgical History / Comment(s): Rt middle finger surgery R/T injury, EGD, colonoscopy but patient states hes never had any scopes Past Anesthesia/Blood Transfusion Reactions: No Reported Reaction Smoking Status: Former smoker - Past Family History Mother Family Medical History: No Reported History Medications and Allergies Home Medications Medication Instructions Recorded Confirmed Type Aspirin 325 mg PO DAILY 03/09/20 06/11/20 History Pyridoxine HCl (Vitamin B6) 100 mg PO DAILY 03/09/20 06/11/20 History [Vitamin B-6] Turmeric Powder 1 tsp PO DAILY 03/09/20 06/11/20 History Calcium/Magnesium/Zinc 2 tab PO DAILY 06/04/20 06/11/20 History [Loaobhz-Iexdfwrco-Ixft Tablet] Cayenne Pepper Powder 2 tsp PO DAILY 06/04/20 06/11/20 History Cetirizine HCl 10 mg PO DAILY PRN 06/04/20 06/11/20 History Cholecalciferol (Vitamin D3) 125 mcg PO DAILY 06/04/20 06/11/20 History [Vitamin D3] HYDROcodone/APAP 5-325MG [[place] 1 tab PO Q6H PRN 06/04/20 06/11/20 History 5-325] Latanoprost Ophth [Xalatan 0.005%] 1 drop BOTH EYES HS 06/04/20 06/11/20 History Meloxicam [Mobic] 15 mg PO DAILY 06/04/20 06/11/20 History Nitroglycerin Sl Tabs [Nitrostat] 0.4 mg SL Q5M PRN 06/04/20 06/11/20 History [place]-3 600mg 1,200 mg PO DAILY 06/04/20 06/11/20 History Potassium Chloride 10 meq PO DAILY 06/04/20 06/11/20 History Spironolactone [Aldactone] 25 mg PO DAILY 06/04/20 06/11/20 History Vitamin A Acetate [Vitamin A] 10,000 unit SL DAILY 06/04/20 06/11/20 History Meclizine [Antivert] 25 mg PO TID PRN #20 tab 06/08/20 06/11/20 Rx Amoxic-Pot Clav 875-125Mg 1 tab PO Q12H 06/11/20 06/11/20 History [Augmentin 875-125] Furosemide [Lasix] 40 mg PO BID #0 06/12/20 06/11/20 Rx Allergies Allergy/AdvReac Type Severity Reaction Status Date / Time No Known Allergies Allergy Verified 06/11/20 20:32 Physical Exam Vitals: Vital Signs Temp Pulse Pulse Resp BP BP Pulse Ox 06/12/20 07:17 98.1 F 59 L 19 123/72 94 L 06/12/20 07:00 97.6 F 61 16 132/88 93 L 06/12/20 06:40 98.0 F 58 L 20 149/88 95 06/12/20 00:40 80 17 131/77 97 06/12/20 00:33 97 06/11/20 17:34 98.5 F 69 18 141/64 96 Intake and Output 06/11/20 06/12/20 06/12/20 22:59 06:59 14:59 Intake Total 110 Output Total 300 Balance -190 Intake: Oral 110 Output: Urine 300 Other: Voiding Method Toilet Weight 147.418 kg 147.418 kg PHYSICAL EXAMINATION: GENERAL: The patient is alert and oriented x3, not in any acute distress. Well developed, well nourished. HEENT: Pupils are round and equally reacting to light. EOMI. No scleral icterus. No conjunctival pallor. Normocephalic, atraumatic. No pharyngeal erythema. No thyromegaly. CARDIOVASCULAR: S1 and S2 present. No murmurs, rubs, or gallops. PULMONARY: Chest is clear to auscultation, no wheezing or crackles. ABDOMEN: Soft, nontender, nondistended, normoactive bowel sounds. No palpable organomegaly. MUSCULOSKELETAL: No joint swelling or deformity. EXTREMITIES: No cyanosis, clubbing, or pedal edema. NEUROLOGICAL: Gross neurological examination did not reveal any focal deficits. SKIN: Patient has significant the cellulitis of the left foot along with infected ulcers on the tarsometatarsal area involving all the toes.. Results CBC & Chem 7: 06/11/20 19:30 06/11/20 19:30 Labs: Abnormal Lab Results - Last 24 Hours (Table) 06/11/20 Range/Units 19:30 Carbon Dioxide 31 H (22-30) mmol/L BUN 26 H (9-20) mg/dL ALT 70 H (4-49) U/L Assessment and Plan Plan: -Cellulitis and infected ulcers and of the left foot: Patient wound culture showed gram-positive cocci and gram-negative bacilli and patient was discharged on Augmentin. Patient's cellulitis appears to be bit better after evaluation and clearance by vascular surgery and infectious disease patient probably can be discharged back again. -Chronic venous insufficiency of both legs patient was discharged on 40 oral twice a day of Lasix along with Aldactone we may need to cut down the Lasix abated his swelling improved but that his creatinine has slightly worsened. Patient is also on meloxicam patient will need monitoring of basic metabolic profile. I will discuss with the primary care physician -Hypertension hyperlipidemia -Obesity Hyperlipidemia prophylaxis with Lovenox
[2020-06-12] MEDS ORDERED: VANCOMYCIN 2,500 MG in SODIUM CHLORIDE 0.9% 500 ML 500 ML IVPB SCH (11:00)
[2020-06-12 13:12] VITALS: BP 122/75; PULSE 58; RESP 17; TEMP 97.7
[2020-06-12] MEDS: SODIUM CHLORIDE 0.9% 1,000 ML IV SCH (14:03)
--- NOTE | 2020-06-12 16:10 | CDI ---
Documentation Clarification Form Date: 06/12/2020 03:40:47 PM From: Mary Ann Zamora RN, CCDS Admit Date: 06/11/2020 09:38:00 PM Patient Name: Owen Aldrich Visit Number: [id number] Discharge Date: ATTENTION: The Clinical Documentation Specialists (CDI) and [facility] Coding Staff appreciate your assistance in clarifying documentation. Please respond to the clarification below the line at the bottom and electronically sign. The CDI & [facility] Coding staff will review the response and follow-up if needed. Please note: Queries are made part of the Legal Health Record. If you have any questions, please contact the author of this message via ITS. Dr. Dulce Melendez Infected ulcers on the tarsometatarsal area involving all the toes is documented in the H/P. Please provide further specificity of infected ulcers if known. Patient history/risk factors: Cellulitis left foot, venous insufficiency, Obesity, Hypertension Clinical Indicators: 64-year-old male who was treated for severe cellulitis was sent in to ER by PCP who believed the patient infection may be worse. Extremities exam in ED: mild bilateral pedal edema worse in the left foot. Erythema noted to the left dorsal forefoot with edema. Patient has purulent material, gangrene noted on the second and third digit. 06/11 Labs: WBC 8.8 Wound assessment: Per ED gangrene of the left second and third toes. Treatment: Unasyn 3 gm IV q 6 hrs .9 NS 500 ml bolus Vancomycin HCL 2,500 mg iv q 12 hrs In your professional opinion, can the etiology and severity of the wound be further specified as one of the following? Etiology: Non-pressure chronic ulcer due to venous insufficiency Other, Please specify Unable to determine Severity: Limited to breakdown of skin With fat layer exposed With necrosis of muscle With necrosis of bone Other, Please specify Unable to determine (Last Revision: April 2017) Unable to determine MTDD
[2020-06-12] MEDS ORDERED: LATANOPROST 0.005% OPHTH DROPS 2.5 ML BTL BOTH EYES SCH (21:00)
[2020-06-12] MEDS ORDERED: FUROSEMIDE 10 MG/ML 4 ML VIAL IV SCH (21:00)
[2020-06-12] MEDS ORDERED: FUROSEMIDE 40 MG TAB PO SCH (21:00)
[2020-06-13] MEDS ORDERED: PYRIDOXINE 50 MG TAB PO SCH (09:00)
[2020-06-13] MEDS ORDERED: ASPIRIN 81 MG PO SCH (09:00)
[2020-06-13] MEDS ORDERED: MELOXICAM 7.5 MG TAB PO SCH (09:00)
[2020-06-13] MEDS ORDERED: SPIRONOLACTONE 25 MG TAB PO SCH (09:00)
== END 2020-06-12 16:00 | disposition home or self-care (01) | DRG 603 ==
LOC: EC 17:26 → 6NMEDSUR 21:38 → 5NMEDONC 06-12 07:03
PROVIDERS: ADMIT Internal Medicine; ATTEND Internal Medicine
DX: L03.116 Cellulitis of left lower limb (principal); Z68.42 Body mass index [BMI] 45.0-49.9, adult; I96 Gangrene, not elsewhere classified; I87.2 Venous insufficiency (chronic) (peripheral); L97.529 Non-pressure chronic ulcer of other part of left foot with unspecified severity; E66.9 Obesity, unspecified; E78.5 Hyperlipidemia, unspecified; E86.0 Dehydration; I10 Essential (primary) hypertension; G89.29 Other chronic pain; Z79.1 Long term (current) use of non-steroidal anti-inflammatories (NSAID); Z79.82 Long term (current) use of aspirin; Z79.899 Other long term (current) drug therapy; Z87.891 Personal history of nicotine dependence
CPT/HCPCS: 36415; 80053; 83605; 85025; 85610; 86140; 87040; 96361; 96365; 96366; 96367; 99285

== ENCOUNTER 2020-12-22 11:33 | Emergency (ER) | payer OTHER ==
[2020-12-22 11:59] VITALS: BP 130/88; PULSE 58; RESP 18; TEMP 98
--- NOTE | 2020-12-22 12:52 | XR ---
Chest x-ray and left RIBS HISTORY: Trauma and pain Frontal view of the chest, 4 views the left ribs submitted Correlation to prior chest x-ray 06/04/2020 There is no evident pneumothorax or pleural effusion. Cardiac mediastinal silhouette, pulmonary vascu lar and catarina are stable. There is overlying artifact. Eventration of right hemidiaphragm is noted. Th ere is thoracic spondylosis. Number displaced rib fracture noted at the left seventh rib, possibly eighth rib. IMPRESSION: Left seventh and possibly eighth rib fractures
--- NOTE | 2020-12-22 13:29 | ED ---
Fall HPI - General Chief Complaint: Fall Stated Complaint: Lt Rib Pain Time Seen by Provider: 12/22/20 12:05 Source: patient, RN notes reviewed Mode of arrival: ambulatory Limitations: no limitations - History of Present Illness Initial Comments: 65-year-old male presents emergency Department with chief complaint of left- sided rib pain. Patient states he fell 3 days ago when he tripped over his foot went under his left arm. Patient went of rib pain no head injury no loss conscious and arm pain. Patient states that he felt some clicking and popping inside and some discomfort. Patient denies any shortness breath over many hurts. No other injuries noted. - Related Data Home Medications Medication Instructions Recorded Confirmed Aspirin 325 mg PO DAILY 03/09/20 06/11/20 Pyridoxine HCl (Vitamin B6) 100 mg PO DAILY 03/09/20 06/11/20 [Vitamin B-6] Turmeric Powder 1 tsp PO DAILY 03/09/20 06/11/20 Calcium/Magnesium/Zinc 2 tab PO DAILY 06/04/20 06/11/20 [Msijoul-Ircjssswv-Clcy Tablet] Cayenne Pepper Powder 2 tsp PO DAILY 06/04/20 06/11/20 Cetirizine HCl 10 mg PO DAILY PRN 06/04/20 06/11/20 Cholecalciferol (Vitamin D3) 125 mcg PO DAILY 06/04/20 06/11/20 [Vitamin D3 (5000 Iu)] HYDROcodone/APAP 5-325MG [[place] 1 tab PO Q6H PRN 06/04/20 06/11/20 5-325] Latanoprost Ophth [Xalatan 0.005%] 1 drop BOTH EYES HS 06/04/20 06/11/20 Meloxicam [Mobic] 15 mg PO DAILY 06/04/20 06/11/20 Nitroglycerin Sl Tabs [Nitrostat] 0.4 mg SL Q5M PRN 06/04/20 06/11/20 [place]-3 600mg 1,200 mg PO DAILY 06/04/20 06/11/20 Potassium Chloride 10 meq PO DAILY 06/04/20 06/11/20 Spironolactone [Aldactone] 25 mg PO DAILY 06/04/20 06/11/20 Vitamin A Acetate [Vitamin A] 10,000 unit SL DAILY 06/04/20 06/11/20 Amoxic-Pot Clav 875-125Mg 1 tab PO Q12H 06/11/20 06/11/20 [Augmentin 875-125] Previous Rx's Medication Instructions Recorded Meclizine [Antivert] 25 mg PO TID PRN #20 tab 06/08/20 Furosemide [Lasix] 40 mg PO BID #0 06/12/20 HYDROcodone/APAP 7.5-325MG [[place] 1 tab PO Q6HR PRN 3 Days #12 tab 12/22/20 7.5-325] Allergies Allergy/AdvReac Type Severity Reaction Status Date / Time No Known Allergies Allergy Verified 12/22/20 11:59 Review of Systems ROS Statement: Those systems with pertinent positive or pertinent negative responses have been documented in the HPI. ROS Other: All systems not noted in ROS Statement are negative. Past Medical History Past Medical History: Hyperlipidemia, Hypertension Additional Past Medical History / Comment(s): Edema BLE, stress test abn, nocturia, ex-smoker, obseity, venous insufficiency, chronic ulcer of leg, pressure in eyes, cellulitis, chronic pain, History of Any Multi-Drug Resistant Organisms: None Reported Past Surgical History: Orthopedic Surgery Additional Past Surgical History / Comment(s): Rt middle finger surgery R/T injury, EGD, colonoscopy but patient states hes never had any scopes Past Anesthesia/Blood Transfusion Reactions: No Reported Reaction Past Psychological History: No Psychological Hx Reported Smoking Status: Former smoker Past Alcohol Use History: Occasional Past Drug Use History: None Reported - Past Family History Mother Family Medical History: No Reported History General Exam Limitations: no limitations General appearance: alert, in no apparent distress Head exam: Present: atraumatic, normocephalic, normal inspection Eye exam: Present: normal appearance, PERRL, EOMI. Absent: scleral icterus, conjunctival injection, periorbital swelling ENT exam: Present: normal exam, normal oropharynx, mucous membranes moist Neck exam: Present: normal inspection, full ROM. Absent: tenderness, meningismus, lymphadenopathy Respiratory exam: Present: normal lung sounds bilaterally, chest wall tenderness (Moderate left anterior lateral). Absent: respiratory distress, wheezes, rales, rhonchi, stridor Cardiovascular Exam: Present: regular rate, normal rhythm, normal heart sounds. Absent: systolic murmur, diastolic murmur, rubs, gallop, clicks Back exam: Present: full ROM. Absent: tenderness, paraspinal tenderness, vertebral tenderness (No vertebral tenderness thoracic or lumbar noted) Neurological exam: Present: alert, CN II-XII intact, reflexes normal. Absent: motor sensory deficit Course Vital Signs 12/22/20 11:55 Temperature 98 F Pulse Rate 58 L Respiratory 18 Rate Blood Pressure 130/88 O2 Sat by Pulse 98 Oximetry Medical Decision Making - Medical Decision Making X-ray shows evidence of some possible eighth rib fracture. There is no pneumothorax. Patient has been taking pain medication meds at home which is helping. Patient will continue pain meds return for worsening change in symptoms. Disposition Clinical Impression: Fall, Left rib fracture Disposition: HOME SELF-CARE Condition: Stable Instructions (If sedation given, give patient instructions): Rib Fracture (ED) Additional Instructions: Please return to the Emergency Department if symptoms worsen or any other con cerns. Prescriptions: HYDROcodone/APAP 7.5-325MG [[place] 7.5-325] 1 tab PO Q6HR PRN 3 Days #12 tab PRN Reason: Pain Is patient prescribed a controlled substance at d/c from ED?: Yes When asked, does pt state using other controlled substances?: No If prescribed controlled substance>3 days was MAPS reviewed?: Prescribed <3 Days If opioid is for acute pain is fill amount 7 days or less?: Yes If Rx opioid, was Start Talking consent form obtained?: Yes Referrals: Nirmala Boswell III, MD [Primary Care Provider] - 1-2 days Time of Disposition: 13:28
== END 2020-12-22 13:35 | disposition home or self-care (01) ==
LOC: EC 11:33
DX: S22.32XA Fracture of one rib, left side, initial encounter for closed fracture (principal); E78.5 Hyperlipidemia, unspecified; I10 Essential (primary) hypertension; E66.9 Obesity, unspecified; Z87.891 Personal history of nicotine dependence; Z79.1 Long term (current) use of non-steroidal anti-inflammatories (NSAID); Z79.82 Long term (current) use of aspirin; Z68.42 Body mass index [BMI] 45.0-49.9, adult; W01.0XXA Fall on same level from slipping, tripping and stumbling without subsequent striking against object, initial encounter
CPT/HCPCS: 99283

== ENCOUNTER → 2021-04-13 | Day surgery (SDC) | payer OTHER ==
[2021-04-12 10:01] VITALS: BMI 43.4
[~2021-04-13] MED LIST changes: -ALPRAZolam 0.25 MG TAB PO PRN; -ALPRAZolam 0.5 MG TAB PO PRN; -ASPIRIN 325 MG TAB PO STA; -ATORVASTATIN 80 MG TAB PO STA; +LACTATED RINGERS 1,000 ML IV SCH; +LIDOCAINE 1% (10MG/ML) FOR IV START INTRADERMA PRN; +MIDAZOLAM 2 MG/2 ML VIAL ONE; -NITROGLYCERIN SL TABS 0.4 MG TAB SUBLINGUAL PRN; +PHENYLEPHRINE-0.9% NACL SYG 1,000 MCG/10 ML SYRINGE ONE; +PROPOFOL 10 MG/ML 20 ML VIAL IV ONE; -SODIUM CHLORIDE 0.9% 1,000 ML in EMPTY BAG 1 BAG IV ONE; +fentaNYL (PF) 50 MCG/ML 2 ML AMP ONE
[2021-04-13 11:37] VITALS: TEMP 97
--- NOTE | 2021-04-13 11:59 | P.HPADDEND ---
H&P Addendum H&P Addendum Date: 04/13/21 Patient here today for colonoscopy. Discussed options further with the patient. He and I discussed the options of possible hemorrhoidal banding if a internal hemorrhoid is identified as source of bleeding. Risks of bleeding, infection, recurrence reviewed. He understands and wished to proceed.
--- NOTE | 2021-04-13 12:32 | P.PCN ---
Date of Procedure: 04/13/21 Procedure(s) Performed: PREOPERATIVE DIAGNOSIS: Rectal bleeding POSTOPERATIVE DIAGNOSIS: Descending colon polyp, rectal polyp, internal hemorrhoids, draining perirectal skin cyst PROCEDURE: Colonoscopy with snare polypectomy, anoscopy with internal hemorrhoidal banding ANESTHESIA: MAC SURGEON: Iron Oliveira M.D. SPECIMENS: Polyps ENDOSCOPIC PROCEDURE: The patient was placed on the endoscopy table in the left decubitus position. The Olympus colonoscope was inserted into the anus and passed under direct visualization to the base of the cecum. The appendiceal orifice was visualized. From that point the scope was slowly withdrawn inspecting all surfaces carefully. There were no neoplastic inflammatory or polypoid lesions throughout the cecum, ascending, and transverse colon. The descending colon a small polyp was seen and removed using snare with cautery technique. The remainder of the descending and sigmoid colon appeared normal. In the rectum there were 2 small polyps both removed using the snare with cautery technique. Retroflexion revealed internal hemorrhoids. No evidence of recent bleeding. Anoscopy was utilized. The patient had the most prominent internal hemorrhoid in the right lateral position. This was treated with a single hemorrhoidal band. Perianal examination revealed a indurated skin cyst in the left lateral location. This had a sinus opening with a small amount of bloody cloudy fluid able to be expressed from that area. This appeared to be separate from the anus without induration between the 2 and was felt to be more dermatologic than a fistulous opening. The patient had a few other areas of skin induration and cystic lesions. A depression in the gluteal crease was noted but no obvious pilonidal disease. The patient was taken to the recovery room in stable condition per anesthesia guidelines. RECOMMENDATIONS: Await biopsy results. Will discuss endoscopic findings with the patient. Patient may require excision of perianal cystic skin lesion which could be performed in the left lateral location under sedation with local anesthesia
[2021-04-13 12:50] VITALS: RESP 16
[2021-04-13 13:45] VITALS: BP 142/91; PULSE 74
== END ==
LOC: ORWHC2ENDO 10:43
PROVIDERS: ATTEND Surgery
DX: K62.5 Hemorrhage of anus and rectum (principal); K64.8 Other hemorrhoids; K62.89 Other specified diseases of anus and rectum; Z79.899 Other long term (current) drug therapy; Z87.891 Personal history of nicotine dependence; E78.5 Hyperlipidemia, unspecified; I10 Essential (primary) hypertension; Z79.82 Long term (current) use of aspirin; E66.01 Morbid (severe) obesity due to excess calories
CPT/HCPCS: 93005; 88305; 45385; 45398; J2250; J3010; J2370; J2704

== ENCOUNTER 2022-01-11 01:44 | Inpatient (IN) | payer MEDICARE, OTHER ==
[2022-01-11] MEDS ORDERED: SODIUM CHLORIDE 0.9% 1,000 ML IV STA (02:19)
--- NOTE | 2022-01-11 02:20 | ED ---
GI Bleed HPI - General Chief complaint: GI Bleed Stated complaint: Vomiting Blood, Weakness Time Seen by Provider: 01/11/22 02:17 Source: EMS, RN notes reviewed, old records reviewed Mode of arrival: EMS Limitations: no limitations - History of Present Illness Initial comments: This is a 66-year-old male DF for evaluation She presents today for evaluation regards to significant GI bleed patient was on the toilet and lower GI bleed and upper GI bleed persistent nausea vomiting and near syncopal event. No blood thinners. No prior history of GI bleed MD complaint: blood streaked emesis, coffee ground emesis, melena, blood s treaked stool -: hour(s) Radiation: none Severity scale (1-10): 9 Quality: painless Consistency: constant, now resolved Improves with: none Worsens with: bowel movement Associated Symptoms: nausea, vomiting, malaise, syncope, weakness - Related Data Home Medications Medication Instructions Recorded Confirmed Aspirin 325 mg PO DAILY 03/09/20 04/13/21 Calcium/Magnesium/Zinc 2 tab PO DAILY 06/04/20 04/13/21 [Skgrknt-Jgzytwlxt-Mcyi Tablet] Cayenne Pepper Powder 2 tsp PO DAILY 06/04/20 04/13/21 Cetirizine HCl 10 mg PO DAILY PRN 06/04/20 04/13/21 Cholecalciferol (Vitamin D3) 125 mcg PO DAILY 06/04/20 04/13/21 [Vitamin D3 (5000 Iu)] Latanoprost Ophth [Xalatan 0.005%] 1 drop BOTH EYES HS 06/04/20 04/13/21 Meloxicam [Mobic] 15 mg PO DAILY 06/04/20 04/13/21 Nitroglycerin Sl Tabs [Nitrostat] 0.4 mg SL Q5M PRN 06/04/20 04/13/21 [place]-3 600mg 1,200 mg PO DAILY 06/04/20 04/13/21 Potassium Chloride [Potassium 10 meq PO DAILY 06/04/20 04/13/21 Chloride ER] Spironolactone [Aldactone] 25 mg PO DAILY 06/04/20 04/13/21 Vitamin A Acetate [Vitamin A] 10,000 unit SL DAILY 06/04/20 04/13/21 Turmeric Root Extract [Turmeric] 500 mg PO DAILY 04/12/21 04/13/21 Vitamin B Complex 1 each PO DAILY 04/12/21 04/13/21 Previous Rx's Medication Instructions Recorded Meclizine [Antivert] 25 mg PO TID PRN #20 tab 06/08/20 Furosemide [Lasix] 40 mg PO BID #0 06/12/20 Allergies Allergy/AdvReac Type Severity Reaction Status Date / Time No Known Allergies Allergy Verified 01/11/22 01:57 Review of Systems ROS Statement: Those systems with pertinent positive or pertinent negative responses have been documented in the HPI. ROS Other: All systems not noted in ROS Statement are negative. Past Medical History Past Medical History: Hyperlipidemia, Hypertension Additional Past Medical History / Comment(s): Edema BLE, stress test abn, noc turia, ex-smoker, obseity, venous insufficiency, chronic ulcer of leg-healed, pressure in eyes, cellulitis, chronic pain, History of Any Multi-Drug Resistant Organisms: None Reported Past Surgical History: Orthopedic Surgery Additional Past Surgical History / Comment(s): Rt middle finger surgery R/T injury Past Anesthesia/Blood Transfusion Reactions: No Reported Reaction Past Psychological History: No Psychological Hx Reported Smoking Status: Former smoker - Past Family History Mother Family Medical History: No Reported History Course Vital Signs 01/11/22 01/11/22 01/11/22 01:52 02:21 03:06 Temperature 97.9 F Pulse Rate 101 H 101 H 98 Respiratory 18 20 18 Rate Blood Pressure 130/104 93/63 97/62 O2 Sat by Pulse 93 L 98 94 L Oximetry 01/11/22 01/11/22 04:23 04:33 Temperature 99.1 F 99.9 F H Pulse Rate 80 100 Respiratory 18 18 Rate Blood Pressure 94/64 108/57 O2 Sat by Pulse 95 94 L Oximetry - Reevaluation(s) Reevaluation #1: 01/11/22 04:00 Record is reviewed Reevaluation #2: 01/11/22 04:00 Patient symptoms improving after transfusion of fluid Reevaluation #3: 01/11/22 04:00 Patient informed of results and questions answered - Consultations Consultation #1: Spoke with [facility] who agreed to admit this patient Medical Decision Making - Medical Decision Making 66 male to the emergency room today. Patient presents today for evaluation of upper and lower GI bleed. Patient given transfusion because he had soft blood pressure blood pressure much improved patient feels improved and can be admitted for further evaluation management - Lab Data Result diagrams: 01/11/22 02:10 01/11/22 02:10 Lab Results 01/11/22 01/11/22 01/11/22 Range/Units 02:10 02:10 02:10 WBC 15.8 H (3.8-10.6) k/uL RBC 4.18 L (4.30-5.90) m/uL Hgb 11.9 L (13.0-17.5) gm/dL Hct 37.5 L (39.0-53.0) % MCV 89.7 (80.0-100.0) fL MCH 28.5 (25.0-35.0) pg MCHC 31.8 (31.0-37.0) g/dL RDW 13.7 (11.5-15.5) % Plt Count 474 H (150-450) k/uL MPV 8.3 Neutrophils % 79 % Lymphocytes % 14 % Monocytes % 5 % Eosinophils % 1 % Basophils % 0 % Neutrophils # 12.5 H (1.3-7.7) k/uL Lymphocytes # 2.2 (1.0-4.8) k/uL Monocytes # 0.7 (0-1.0) k/uL Eosinophils # 0.2 (0-0.7) k/uL Basophils # 0.0 (0-0.2) k/uL Hypochromasia Slight PT 10.5 (9.0-12.0) sec INR 1.0 (<1.2) APTT 21.4 L (22.0-30.0) sec Sodium 136 L (137-145) mmol/L Potassium 4.4 (3.5-5.1) mmol/L Chloride 105 (98-107) mmol/L Carbon Dioxide 19 L (22-30) mmol/L Anion Gap 12 mmol/L BUN 31 H (9-20) mg/dL Creatinine 1.19 (0.66-1.25) mg/dL Est GFR (CKD-EPI)AfAm 74 (>60 ml/min/1.73 sqM) Est GFR (CKD-EPI)NonAf 64 (>60 ml/min/1.73 sqM) Glucose 197 H (74-99) mg/dL Plasma Lactic Acid Rodolfo (0.7-2.0) mmol/L Calcium 8.8 (8.4-10.2) mg/dL Phosphorus 5.7 H (2.5-4.5) mg/dL Magnesium 2.2 (1.6-2.3) mg/dL Total Bilirubin 0.4 (0.2-1.3) mg/dL AST 25 (17-59) U/L ALT 23 (4-49) U/L Alkaline Phosphatase 88 (38-126) U/L Troponin I (0.000-0.034) ng/mL NT-Pro-B Natriuret Pep pg/mL Total Protein 6.3 (6.3-8.2) g/dL Albumin 3.5 (3.5-5.0) g/dL Lipase 219 (23-300) U/L TSH 1.110 (0.465-4.680) mIU/L Urine Color Urine Appearance (Clear) Urine pH (5.0-8.0) Ur Specific [place] (1.001-1.035) Urine Protein (Negative) Urine Glucose (UA) (Negative) Urine Ketones (Negative) Urine Blood (Negative) Urine Nitrite (Negative) Urine Bilirubin (Negative) Urine Urobilinogen (<2.0) mg/dL Ur Leukocyte Esterase (Negative) Urine RBC (0-5) /hpf Urine WBC (0-5) /hpf Urine WBC Clumps (None) /hpf Ur Squamous Epith Cells (0-4) /hpf Urine Bacteria (None) /hpf Cellular Casts (0) /lpf Hyaline Casts (0-2) /lpf Urine Mucus (None) /hpf Blood Type Blood Type Confirm Blood Type Recheck Bld Type Recheck Status Antibody Screen Crossmatch Spec Expiration Date 01/11/22 01/11/22 01/11/22 Range/Units 02:10 02:10 02:10 WBC (3.8-10.6) k/uL RBC (4.30-5.90) m/uL Hgb (13.0-17.5) gm/dL Hct (39.0-53.0) % MCV (80.0-100.0) fL MCH (25.0-35.0) pg MCHC (31.0-37.0) g/dL RDW (11.5-15.5) % Plt Count (150-450) k/uL MPV Neutrophils % % Lymphocytes % % Monocytes % % Eosinophils % % Basophils % % Neutrophils # (1.3-7.7) k/uL Lymphocytes # (1.0-4.8) k/uL Monocytes # (0-1.0) k/uL Eosinophils # (0-0.7) k/uL Basophils # (0-0.2) k/uL Hypochromasia PT (9.0-12.0) sec INR (<1.2) APTT (22.0-30.0) sec Sodium (137-145) mmol/L Potassium (3.5-5.1) mmol/L Chloride (98-107) mmol/L Carbon Dioxide (22-30) mmol/L Anion Gap mmol/L BUN (9-20) mg/dL Creatinine (0.66-1.25) mg/dL Est GFR (CKD-EPI)AfAm (>60 ml/min/1.73 sqM) Est GFR (CKD-EPI)NonAf (>60 ml/min/1.73 sqM) Glucose (74-99) mg/dL Plasma Lactic Acid Rod[place]fo 5.1 H* (0.7-2.0) mmol/L Calcium (8.4-10.2) mg/dL Phosphorus (2.5-4.5) mg/dL Magnesium (1.6-2.3) mg/dL Total Bilirubin (0.2-1.3) mg/dL AST (17-59) U/L ALT (4-49) U/L Alkaline Phosphatase (38-126) U/L Troponin I 0.076 H* (0.000-0.034) ng/mL NT-Pro-B Natriuret Pep 63 pg/mL Total Protein (6.3-8.2) g/dL Albumin (3.5-5.0) g/dL Lipase (23-300) U/L TSH (0.465-4.680) mIU/L Urine Color Urine Appearance (Clear) Urine pH (5.0-8.0) Ur Specific [place] (1.001-1.035) Urine Protein (Negative) Urine Glucose (UA) (Negative) Urine Ketones (Negative) Urine Blood (Negative) Urine Nitrite (Negative) Urine Bilirubin (Negative) Urine Urobilinogen (<2.0) mg/dL Ur Leukocyte Esterase (Negative) Urine RBC (0-5) /hpf Urine WBC (0-5) /hpf Urine WBC Clumps (None) /hpf Ur Squamous Epith Cells (0-4) /hpf Urine Bacteria (None) /hpf Cellular Casts (0) /lpf Hyaline Casts (0-2) /lpf Urine Mucus (None) /hpf Blood Type Blood Type Confirm Blood Type Recheck Bld Type Recheck Status Antibody Screen Crossmatch Spec Expiration Date 01/11/22 01/11/22 01/11/22 Range/Units 02:10 02:48 04:33 WBC (3.8-10.6) k/uL RBC (4.30-5.90) m/uL Hgb (13.0-17.5) gm/dL Hct (39.0-53.0) % MCV (80.0-100.0) fL MCH (25.0-35.0) pg MCHC (31.0-37.0) g/dL RDW (11.5-15.5) % Plt Count (150-450) k/uL MPV Neutrophils % % Lymphocytes % % Monocytes % % Eosinophils % % Basophils % % Neutrophils # (1.3-7.7) k/uL Lymphocytes # (1.0-4.8) k/uL Monocytes # (0-1.0) k/uL Eosinophils # (0-0.7) k/uL Basophils # (0-0.2) k/uL Hypochromasia PT (9.0-12.0) sec INR (<1.2) APTT (22.0-30.0) sec Sodium (137-145) mmol/L Potassium (3.5-5.1) mmol/L Chloride (98-107) mmol/L Carbon Dioxide (22-30) mmol/L Anion Gap mmol/L BUN (9-20) mg/dL Creatinine (0.66-1.25) mg/dL Est GFR (CKD-EPI)AfAm (>60 ml/min/1.73 sqM) Est GFR (CKD-EPI)NonAf (>60 ml/min/1.73 sqM) Glucose (74-99) mg/dL Plasma Lactic Acid Rod[place] (0.7-2.0) mmol/L Calcium (8.4-10.2) mg/dL Phosphorus (2.5-4.5) mg/dL Magnesium (1.6-2.3) mg/dL Total Bilirubin (0.2-1.3) mg/dL AST (17-59) U/L ALT (4-49) U/L Alkaline Phosphatase (38-126) U/L Troponin I (0.000-0.034) ng/mL NT-Pro-B Natriuret Pep pg/mL Total Protein (6.3-8.2) g/dL Albumin (3.5-5.0) g/dL Lipase (23-300) U/L TSH (0.465-4.680) mIU/L Urine Color Dark Yellow Urine Appearance Turbid (Clear) Urine pH 6.0 (5.0-8.0) Ur Specific [place] 1.022 (1.001-1.035) Urine Protein 3+ H (Negative) Urine Glucose (UA) Negative (Negative) Urine Ketones Trace H (Negative) Urine Blood Negative (Negative) Urine Nitrite Negative (Negative) Urine Bilirubin Negative (Negative) Urine Urobilinogen <2.0 (<2.0) mg/dL Ur Leukocyte Esterase Small H (Negative) Urine RBC 7 H (0-5) /hpf Urine WBC 26 H (0-5) /hpf Urine WBC Clumps Few H (None) /hpf Ur Squamous Epith Cells 4 (0-4) /hpf Urine Bacteria Few H (None) /hpf Cellular Casts 13 (0) /lpf Hyaline Casts 24 H (0-2) /lpf Urine Mucus Many H (None) /hpf Blood Type B Negative Blood Type Confirm B Negative Blood Type Recheck No Previous Record Bld Type Recheck Status CABO Indicated Antibody Screen NEGATIVE Crossmatch See Detail Spec Expiration Date 01/14/20222309 Disposition Clinical Impression: Lower gastrointestinal hemorrhage, Upper gastrointestinal hemorrhage, Near syncope Disposition: ADMITTED IP TO THIS [facility] Condition: Good Is patient prescribed a controlled substance at d/c from ED?: No Referrals: Nirmala Boswell III, MD [Primary Care Provider] - 1-2 days Time of Disposition: 05:00
[2022-01-11] MEDS ORDERED: ONDANSETRON 4 MG/2 ML VIAL IVP PRN ×2 (02:24→07:09)
[2022-01-11 02:51] LABS: Basophils % (A) 0 %; Eosinophils # (A) 0.2 k/uL (0-0.7); Eosinophils % (A) 1 %; HCT 37.5 % (39.0-53.0); HGB 11.9 gm/dL (13.0-17.5); Hypochromasia Slight; Lymphocytes # (A) 2.2 k/uL (1.0-4.8); Lymphocytes % (A) 14 %; MCH 28.5 pg (25.0-35.0); MCHC 31.8 g/dL (31.0-37.0); MCV 89.7 fL (80.0-100.0); Mean Platelet Volume 8.3; Monocytes # (A) 0.7 k/uL (0-1.0); Monocytes % (A) 5 %; Neutrophils # (A) 12.5 k/uL (1.3-7.7); Neutrophils % (A) 79 %; Platelet Count 474 k/uL (150-450); RBC 4.18 m/uL (4.30-5.90); RDW 13.7 % (11.5-15.5); WBC 15.8 k/uL (3.8-10.6)
[2022-01-11 02:57] LABS: Albumin 3.5 g/dL (3.5-5.0); Calcium 8.8 mg/dL (8.4-10.2); Magnesium 2.2 mg/dL (1.6-2.3); Phosphorus 5.7 mg/dL (2.5-4.5); Potassium 4.4 mmol/L (3.5-5.1); Total Bilirubin 0.4 mg/dL (0.2-1.3); Total Protein 6.3 g/dL (6.3-8.2)
[2022-01-11 03:03] LABS: Prothrombin Time 10.5 sec (9.0-12.0)
[2022-01-11 03:18] LABS: Partial Thromboplastin Time 21.4 sec (22.0-30.0)
[2022-01-11 04:47] LABS: Appearance,Urine Turbid (Clear); Bacteria,Urine Few /hpf; Bilirubin,Urine Negative (Negative); Blood,Urine Negative (Negative); Cellular Casts,Urine 13 /lpf (0); Color,Urine Dark Yellow; Glucose,Urine (UA) Negative (Negative); Hyaline Casts,Urine 24 /lpf (0-2); Ketones,Urine Trace (Negative); Leukocyte Esterase,Urine Small (Negative); Mucus,Urine Many /hpf; Nitrite,Urine Negative (Negative); Protein,Urine 3+ (Negative); RBC,Urine 7 /hpf (0-5); Specific Gravity,Urine 1.022 (1.001-1.035); Squamous Epithelial Cell,Urine 4 /hpf (0-4); Urobilinogen,Urine <2.0 mg/dL (<2.0); WBC,Urine 26 /hpf (0-5)
[2022-01-11] MEDS ORDERED: ACETAMINOPHEN TAB 500 MG TAB PO STA (04:58)
[2022-01-11] MEDS ORDERED: NALOXONE 0.4 MG/ML 1 ML VIAL IV PRN (07:09)
[2022-01-11] MEDS ORDERED: LORazepam 2 MG/ML INJ IV PRN (07:09)
[2022-01-11] MEDS ORDERED: MORPHINE SULFATE 4 MG/ML SYRINGE IV PRN (07:09)
[2022-01-11] MEDS ORDERED: SODIUM CHLORIDE 0.9% 1,000 ML IV SCH (07:15)
[2022-01-11 08:22] LABS: Basophils # (A) 0.1 k/uL (0-0.2); Basophils % (A) 0 %; Eosinophils # (A) 0.2 k/uL (0-0.7); Eosinophils % (A) 1 %; HCT 35.6 % (39.0-53.0); HGB 11.4 gm/dL (13.0-17.5); Lymphocytes % (A) 11 %; MCH 28.2 pg (25.0-35.0); MCHC 32.1 g/dL (31.0-37.0); MCV 87.9 fL (80.0-100.0); Mean Platelet Volume 7.3; Monocytes # (A) 0.9 k/uL (0-1.0); Monocytes % (A) 5 %; Neutrophils % (A) 82 %; Platelet Count 403 k/uL (150-450); RBC 4.05 m/uL (4.30-5.90); RDW 13.1 % (11.5-15.5); WBC 19.4 k/uL (3.8-10.6)
[2022-01-11] MEDS: PANTOPRAZOLE 40 MG/10 ML VIAL IV SCH ×2 (08:56→20:53)
[2022-01-11 09:02] LABS: Basophils # (A) 0.1 k/uL (0-0.2); Basophils % (A) 0 %; Eosinophils # (A) 0.1 k/uL (0-0.7); Eosinophils % (A) 1 %; HCT 34.6 % (39.0-53.0); HGB 11.1 gm/dL (13.0-17.5); Lymphocytes # (A) 2.1 k/uL (1.0-4.8); Lymphocytes % (A) 12 %; MCH 28.2 pg (25.0-35.0); MCHC 32.1 g/dL (31.0-37.0); MCV 87.9 fL (80.0-100.0); Mean Platelet Volume 7.1; Monocytes % (A) 6 %; Neutrophils # (A) 13.8 k/uL (1.3-7.7); Neutrophils % (A) 80 %; Platelet Count 374 k/uL (150-450); RBC 3.94 m/uL (4.30-5.90); RDW 13.1 % (11.5-15.5); WBC 17.3 k/uL (3.8-10.6)
[2022-01-11] MEDS: SODIUM CHLORIDE 0.9% 1,000 ML IV SCH ×2 (11:34→20:53)
[2022-01-11] MEDS ORDERED: HYDROcodone/APAP 7.5-325MG 1 EACH TAB PO PRN (12:34)
--- NOTE | 2022-01-11 12:39 | P.HPIM ---
History of Present Illness Patient is a pleasant 61-year-old came in with comments of coffee-ground emesis multiple episodes of bloody emesis and dark stools has been going on for last couple days. Patient does take meloxicam at home was comparing of abdominal discomfort in the epigastric area had a near syncopal event. Patient will come in on admission 11.9 does have leukocytosis without any evidence of infection. REVIEW OF SYSTEMS: CONSTITUTIONAL: No fever, no malaise, no fatigue. HEENT: No recent visual problems or hearing problems. Denied any sore throat. CARDIOVASCULAR: No chest pain, orthopnea, PND, no palpitations, no syncope. PULMONARY: No shortness of breath, no cough, no hemoptysis. GASTROINTESTINAL: No diarrhea NEUROLOGICAL: No headaches, no weakness, no numbness. HEMATOLOGICAL: Denies any bleeding or petechiae. GENITOURINARY: Denies any burning micturition, frequency, or urgency. MUSCULOSKELETAL/RHEUMATOLOGICAL: Denies any joint pain, swelling, or any muscle pain. ENDOCRINE: Denies any polyuria or polydipsia. The rest of the 14-point review of systems is negative. PHYSICAL EXAMINATION: GENERAL: The patient is alert and oriented x3, not in any acute distress. Well developed, well nourished. HEENT: Pupils are round and equally reacting to light. EOMI. No scleral icterus. No conjunctival pallor. Normocephalic, atraumatic. No pharyngeal erythema. No thyromegaly. CARDIOVASCULAR: S1 and S2 present. No murmurs, rubs, or gallops. PULMONARY: Chest is clear to auscultation, no wheezing or crackles. ABDOMEN: Soft, nontender, nondistended, normoactive bowel sounds. No palpable organomegaly. MUSCULOSKELETAL: No joint swelling or deformity. EXTREMITIES: No cyanosis, clubbing, or pedal edema. NEUROLOGICAL: Gross neurological examination did not reveal any focal deficits. SKIN: She has a severe peripheral vascular disease with the multiple chronic wounds for which patient follows up with vascular surgery and wound care as an outpatient. Assessment and plan -Acute upper GI bleed in and acute blood loss anemia secondary to that time patient was started on Protonix neurosurgery was consulted for upper GI endoscopy. Patient peptic ulcer disease is secondary to nonsteroidal anti- inflammatory medications which will be held -Cerebrovascular disease for which patient underwent stenting in the past p atient has multiple arterial ulcers local wound care for that there doesn't appear to be infected 4 mild acute renal failure prerenal azotemia due to GI bleed patient will be started on IV fluids -mild elevation of troponin without any complaints of chest pain him a EKG shows right bundle-branch block no acute ST-T wave changes on the EKG. No evidence of acute microinfarction we'll repeat the troponin again Leukocytosis reactive without any evidence of infection DVT prophylaxis: Ambulation Past Medical History Past Medical History: Hyperlipidemia, Hypertension Additional Past Medical History / Comment(s): Edema BLE, stress test abn, nocturia, ex-smoker, obseity, venous insufficiency, chronic ulcer of leg-healed, pressure in eyes, cellulitis, chronic pain, History of Any Multi-Drug Resistant Organisms: None Reported Past Surgical History: Orthopedic Surgery Additional Past Surgical History / Comment(s): Rt middle finger surgery R/T injury Past Anesthesia/Blood Transfusion Reactions: No Reported Reaction Past Psychological History: No Psychological Hx Reported Smoking Status: Former smoker - Past Family History Mother Family Medical History: No Reported History Medications and Allergies Home Medications Medication Instructions Recorded Confirmed Type Latanoprost Ophth [Xalatan 0.005%] 1 drop BOTH EYES HS 06/04/20 01/11/22 History Meloxicam [Mobic] 15 mg PO HS 06/04/20 01/11/22 History Atorvastatin [Lipitor] 20 mg PO HS 01/11/22 01/11/22 History Fluticasone/Umeclidin/Vilanter 1 puff INHALATION RT-BID 01/11/22 01/11/22 History [Trelegy Ellipta 100-62.5-25] HYDROcodone/APAP 7.5-325MG [[place] 1 tab PO Q6H PRN 01/11/22 01/11/22 History 7.5-325] Montelukast Sodium [Singulair] 10 mg PO HS 01/11/22 01/11/22 History Allergies Allergy/AdvReac Type Severity Reaction Status Date / Time No Known Allergies Allergy Verified 01/11/22 07:47 Physical Exam Vitals: Vital Signs Temp Pulse Resp BP Pulse Ox 01/11/22 12:30 81 16 126/73 97 01/11/22 09:01 87 16 105/72 94 L 01/11/22 06:12 93 20 94/57 94 L 01/11/22 05:03 97.9 F 89 20 100/72 94 L 01/11/22 04:33 99.9 F H 100 18 108/57 94 L 01/11/22 04:23 99.1 F 80 18 94/64 95 01/11/22 03:06 98 18 97/62 94 L 01/11/22 02:21 101 H 20 93/63 98 01/11/22 01:52 97.9 F 101 H 18 130/104 93 L Intake and Output 01/10/22 01/11/22 01/11/22 22:59 06:59 14:59 Intake Total 0 275 Balance 0 275 Intake: Blood Product 0 275 Rc Pheresis As-3 Unit 0 275 [id number] Other: Weight 141.067 kg Results CBC & Chem 7: 01/11/22 08:45 01/11/22 02:10 Labs: Abnormal Lab Results - Last 24 Hours (Table) 01/11/22 01/11/22 01/11/22 Range/Units 02:10 02:10 02:10 WBC 15.8 H (3.8-10.6) k/uL RBC 4.18 L (4.30-5.90) m/uL Hgb 11.9 L (13.0-17.5) gm/dL Hct 37.5 L (39.0-53.0) % Plt Count 474 H (150-450) k/uL Neutrophils # 12.5 H (1.3-7.7) k/uL APTT 21.4 L (22.0-30.0) sec Sodium 136 L (137-145) mmol/L Carbon Dioxide 19 L (22-30) mmol/L BUN 31 H (9-20) mg/dL Glucose 197 H (74-99) mg/dL Plasma Lactic Acid Rodolfo (0.7-2.0) mmol/L Phosphorus 5.7 H (2.5-4.5) mg/dL Troponin I (0.000-0.034) ng/mL Urine Protein (Negative) Urine Ketones (Negative) Ur Leukocyte Esterase (Negative) Urine RBC (0-5) /hpf Urine WBC (0-5) /hpf Urine WBC Clumps (None) /hpf Urine Bacteria (None) /hpf Hyaline Casts (0-2) /lpf Urine Mucus (None) /hpf Crossmatch 01/11/22 01/11/22 01/11/22 Range/Units 02:10 02:10 02:48 WBC (3.8-10.6) k/uL RBC (4.30-5.90) m/uL Hgb (13.0-17.5) gm/dL Hct (39.0-53.0) % Plt Count (150-450) k/uL Neutrophils # (1.3-7.7) k/uL APTT (22.0-30.0) sec Sodium (137-145) mmol/L Carbon Dioxide (22-30) mmol/L BUN (9-20) mg/dL Glucose (74-99) mg/dL Plasma Lactic Acid Rod[place] 5.1 H* (0.7-2.0) mmol/L Phosphorus (2.5-4.5) mg/dL Troponin I 0.076 H* (0.000-0.034) ng/mL Urine Protein (Negative) Urine Ketones (Negative) Ur Leukocyte Esterase (Negative) Urine RBC (0-5) /hpf Urine WBC (0-5) /hpf Urine WBC Clumps (None) /hpf Urine Bacteria (None) /hpf Hyaline Casts (0-2) /lpf Urine Mucus (None) /hpf Crossmatch See Detail 01/11/22 01/11/22 01/11/22 Range/Units 04:33 08:05 08:45 WBC 19.4 H 17.3 H (3.8-10.6) k/uL RBC 4.05 L 3.94 L (4.30-5.90) m/uL Hgb 11.4 L 11.1 L (13.0-17.5) gm/dL Hct 35.6 L 34.6 L (39.0-53.0) % Plt Count (150-450) k/uL Neutrophils # 16.0 H 13.8 H (1.3-7.7) k/uL APTT (22.0-30.0) sec Sodium (137-145) mmol/L Carbon Dioxide (22-30) mmol/L BUN (9-20) mg/dL Glucose (74-99) mg/dL Plasma Lactic Acid Rodol[place] (0.7-2.0) mmol/L Phosphorus (2.5-4.5) mg/dL Troponin I (0.000-0.034) ng/mL Urine Protein 3+ H (Negative) Urine Ketones Trace H (Negative) Ur Leukocyte Esterase Small H (Negative) Urine RBC 7 H (0-5) /hpf Urine WBC 26 H (0-5) /hpf Urine WBC Clumps Few H (None) /hpf Urine Bacteria Few H (None) /hpf Hyaline Casts 24 H (0-2) /lpf Urine Mucus Many H (None) /hpf Crossmatch Microbiology - Last 24 Hours (Table) 01/11/22 04:33 Urine Culture - Preliminary Urine,Voided
--- NOTE | 2022-01-11 13:08 | P.GSCN ---
History of Present Illness Consult date: 01/11/22 Reason for Consult: Coffee-ground emesis History of present illness: This a 66-year-old male who presented to emergency. Patient had complaints of coffee-ground emesis. He also states he had a melanotic stool. He denies any significant abdominal pain. He is currently eating. Past Medical History Past Medical History: Hyperlipidemia, Hypertension Additional Past Medical History / Comment(s): Edema BLE, stress test abn, nocturia, ex-smoker, obseity, venous insufficiency, chronic ulcer of leg-healed, pressure in eyes, cellulitis, chronic pain, History of Any Multi-Drug Resistant Organisms: None Reported Past Surgical History: Orthopedic Surgery Additional Past Surgical History / Comment(s): Rt middle finger surgery R/T injury Past Anesthesia/Blood Transfusion Reactions: No Reported Reaction Past Psychological History: No Psychological Hx Reported Smoking Status: Former smoker - Past Family History Mother Family Medical History: No Reported History Medications and Allergies Home Medications Medication Instructions Recorded Confirmed Type Latanoprost Ophth [Xalatan 0.005%] 1 drop BOTH EYES HS 06/04/20 01/11/22 History Meloxicam [Mobic] 15 mg PO HS 06/04/20 01/11/22 History Atorvastatin [Lipitor] 20 mg PO HS 01/11/22 01/11/22 History Fluticasone/Umeclidin/Vilanter 1 puff INHALATION RT-BID 01/11/22 01/11/22 History [Trelegy Ellipta 100-62.5-25] HYDROcodone/APAP 7.5-325MG [[place] 1 tab PO Q6H PRN 01/11/22 01/11/22 History 7.5-325] Montelukast Sodium [Singulair] 10 mg PO HS 01/11/22 01/11/22 History Allergies Allergy/AdvReac Type Severity Reaction Status Date / Time No Known Allergies Allergy Verified 01/11/22 07:47 Surgical - Exam Vital Signs Temp Pulse Resp BP Pulse Ox 97.9 F 101 H 18 130/104 93 L 01/11/22 01:52 01/11/22 01:52 01/11/22 01:52 01/11/22 01:52 01/11/22 01:52 - General well developed, well nourished, no distress - Eyes PERRL - ENT normal pinna - Neck no masses - Respiratory normal expansion, normal respiratory effort - Cardiovascular Rhythm: regular - Abdomen Abdomen: soft, non tender Results - Labs 01/11/22 08:45 01/11/22 02:10 Abnormal Lab Results - Last 24 Hours (Table) 01/11/22 01/11/22 01/11/22 Range/Units 02:10 02:10 02:10 WBC 15.8 H (3.8-10.6) k/uL RBC 4.18 L (4.30-5.90) m/uL Hgb 11.9 L (13.0-17.5) gm/dL Hct 37.5 L (39.0-53.0) % Plt Count 474 H (150-450) k/uL Neutrophils # 12.5 H (1.3-7.7) k/uL APTT 21.4 L (22.0-30.0) sec Sodium 136 L (137-145) mmol/L Carbon Dioxide 19 L (22-30) mmol/L BUN 31 H (9-20) mg/dL Glucose 197 H (74-99) mg/dL Plasma Lactic Acid Rodolfo (0.7-2.0) mmol/L Phosphorus 5.7 H (2.5-4.5) mg/dL Troponin I (0.000-0.034) ng/mL Urine Protein (Negative) Urine Ketones (Negative) Ur Leukocyte Esterase (Negative) Urine RBC (0-5) /hpf Urine WBC (0-5) /hpf Urine WBC Clumps (None) /hpf Urine Bacteria (None) /hpf Hyaline Casts (0-2) /lpf Urine Mucus (None) /hpf Crossmatch 01/11/22 01/11/22 01/11/22 Range/Units 02:10 02:10 02:48 WBC (3.8-10.6) k/uL RBC (4.30-5.90) m/uL Hgb (13.0-17.5) gm/dL Hct (39.0-53.0) % Plt Count (150-450) k/uL Neutrophils # (1.3-7.7) k/uL APTT (22.0-30.0) sec Sodium (137-145) mmol/L Carbon Dioxide (22-30) mmol/L BUN (9-20) mg/dL Glucose (74-99) mg/dL Plasma Lactic Acid Rodolfo 5.1 H* (0.7-2.0) mmol/L Phosphorus (2.5-4.5) mg/dL Troponin I 0.076 H* (0.000-0.034) ng/mL Urine Protein (Negative) Urine Ketones (Negative) Ur Leukocyte Esterase (Negative) Urine RBC (0-5) /hpf Urine WBC (0-5) /hpf Urine WBC Clumps (None) /hpf Urine Bacteria (None) /hpf Hyaline Casts (0-2) /lpf Urine Mucus (None) /hpf Crossmatch See Detail 01/11/22 01/11/22 01/11/22 Range/Units 04:33 08:05 08:45 WBC 19.4 H 17.3 H (3.8-10.6) k/uL RBC 4.05 L 3.94 L (4.30-5.90) m/uL Hgb 11.4 L 11.1 L (13.0-17.5) gm/dL Hct 35.6 L 34.6 L (39.0-53.0) % Plt Count (150-450) k/uL Neutrophils # 16.0 H 13.8 H (1.3-7.7) k/uL APTT (22.0-30.0) sec Sodium (137-145) mmol/L Carbon Dioxide (22-30) mmol/L BUN (9-20) mg/dL Glucose (74-99) mg/dL Plasma Lactic Acid Rodolfo (0.7-2.0) mmol/L Phosphorus (2.5-4.5) mg/dL Troponin I (0.000-0.034) ng/mL Urine Protein 3+ H (Negative) Urine Ketones Trace H (Negative) Ur Leukocyte Esterase Small H (Negative) Urine RBC 7 H (0-5) /hpf Urine WBC 26 H (0-5) /hpf Urine WBC Clumps Few H (None) /hpf Urine Bacteria Few H (None) /hpf Hyaline Casts 24 H (0-2) /lpf Urine Mucus Many H (None) /hpf Crossmatch Microbiology - Last 24 Hours (Table) 01/11/22 04:33 Urine Culture - Preliminary Urine,Voided Diabetes panel 01/11/22 Range/Units 02:10 Sodium 136 L (137-145) mmol/L Potassium 4.4 (3.5-5.1) mmol/L Chloride 105 (98-107) mmol/L Carbon Dioxide 19 L (22-30) mmol/L BUN 31 H (9-20) mg/dL Creatinine 1.19 (0.66-1.25) mg/dL Glucose 197 H (74-99) mg/dL Calcium 8.8 (8.4-10.2) mg/dL AST 25 (17-59) U/L ALT 23 (4-49) U/L Alkaline Phosphatase 88 (38-126) U/L Total Protein 6.3 (6.3-8.2) g/dL Albumin 3.5 (3.5-5.0) g/dL Thyroid panel 01/11/22 Range/Units 02:10 TSH 1.110 (0.465-4.680) mIU/L Calcium panel 01/11/22 Range/Units 02:10 Calcium 8.8 (8.4-10.2) mg/dL Phosphorus 5.7 H (2.5-4.5) mg/dL Albumin 3.5 (3.5-5.0) g/dL Pituitary panel 01/11/22 Range/Units 02:10 Sodium 136 L (137-145) mmol/L Potassium 4.4 (3.5-5.1) mmol/L Chloride 105 (98-107) mmol/L Carbon Dioxide 19 L (22-30) mmol/L BUN 31 H (9-20) mg/dL Creatinine 1.19 (0.66-1.25) mg/dL Glucose 197 H (74-99) mg/dL Calcium 8.8 (8.4-10.2) mg/dL TSH 1.110 (0.465-4.680) mIU/L Adrenal panel 01/11/22 Range/Units 02:10 Sodium 136 L (137-145) mmol/L Potassium 4.4 (3.5-5.1) mmol/L Chloride 105 (98-107) mmol/L Carbon Dioxide 19 L (22-30) mmol/L BUN 31 H (9-20) mg/dL Creatinine 1.19 (0.66-1.25) mg/dL Glucose 197 H (74-99) mg/dL Calcium 8.8 (8.4-10.2) mg/dL Total Bilirubin 0.4 (0.2-1.3) mg/dL AST 25 (17-59) U/L ALT 23 (4-49) U/L Alkaline Phosphatase 88 (38-126) U/L Total Protein 6.3 (6.3-8.2) g/dL Albumin 3.5 (3.5-5.0) g/dL Assessment and Plan Assessment: Probable upper GI bleed. Patient will undergo EGD on .
[2022-01-12] MEDS: SODIUM CHLORIDE 0.9% 1,000 ML IV SCH ×2 (07:30→17:29)
[2022-01-12] MEDS: PANTOPRAZOLE 40 MG/10 ML VIAL IV SCH (08:31)
[2022-01-12 10:57] LABS: African American GFR (CKD) 108.6 (60.0-200.0); Anion Gap 14.1 mmol/L (10.00-18.00); BUN/Creat Ratio 44.63 Ratio (12.00-20.00); Blood Urea Nitrogen 35.7 mg/dL (9.0-27.0); Carbon Dioxide 21.9 mmol/L (20.0-27.5); Magnesium 1.9 mg/dL (1.5-2.4); Non-African American GFR(CKD) 93.7 (60.0-200.0); Potassium 4.4 mmol/L (3.5-5.5)
[2022-01-12 11:11] LABS: HCT 26.9 % (39.6-50.0); HGB 8.5 g/dL (13.0-17.0); MCH 27.5 pg (27.0-32.0); MCHC 31.6 g/dL (32.0-37.0); MCV 87.1 fL (80.0-97.0); NRBC Per 100 WBC 0 /100 WBCS (0.0-0.0); Platelet Count 282 X 10*3/uL (140-440); RBC 3.09 X 10*6/uL (4.40-5.60); RDW 13.5 % (11.5-14.5); WBC 11.69 X 10*3/uL (4.50-10.00)
--- NOTE | 2022-01-12 11:39 | P.PN ---
Subjective Progress Note Date: 01/12/22 CHIEF COMPLAINT: Coffee-ground emesis HISTORY OF PRESENT ILLNESS: Patient currently in the ER. He's had no further episodes of coffee-ground emesis. Yesterday he did have a couple episodes of melanotic stool. No bowel movements today. Denies any abdominal pain. He scheduled for EGD tomorrow. He did have a drop in his hemoglobin from 11.1-8.5 he did receive a unit of blood yesterday. Afebrile. WBC is down from 17.3- 11.69 hemoglobin 11.1 down to 8.5 platelets 282 symptoms 146 creatinine is 0.8. Hypotension resolved PHYSICAL EXAM: VITAL SIGNS: Reviewed. GENERAL: Well-developed in no acute distress. HEENT: No sclera icterus. Extraocular movements grossly intact. Moist buccal mucosa. Head is atraumatic, normocephalic. ABDOMEN: Soft. Nondistended. Nontender. NEUROLOGIC: Alert and oriented. Cranial nerves II through XII grossly intact. ASSESSMENT: 1. Acute GI bleed with melanotic stools and coffee-ground emesis PLAN: -Patient scheduled for EGD tomorrow, 01/13/2022 -Okay for clear liquids today -Nothing by mouth after midnight -Continue monitor for signs and symptoms of bleeding -Continue to monitor hemoglobin -Continue PPI -Continue IV fluids -Keep Mobic on hold Physician Service Engine Repairer note has been reviewed by physician. Signing provider agrees with the documented findings, assessment, and plan of care. Objective - Vital Signs Vital signs: Vital Signs Temp 98.4 F 01/12/22 01:10 Pulse 68 01/12/22 01:10 Resp 18 01/12/22 01:10 BP 105/59 01/12/22 01:10 Pulse Ox 96 01/12/22 01:10 FiO2 Intake & Output 01/11/22 01/12/22 01/12/22 18:59 06:59 18:59 Intake Total 275 240 Balance 275 240 Weight 141.067 kg Intake: Oral 240 Blood Product 275 Rc Pheresis As-3 Unit 275 [id number] Other: Voiding Method Toilet # Bowel Movements 3 - Labs CBC & Chem 7: 01/12/22 07:29 01/12/22 07:29 Labs: Abnormal Lab Results - Last 24 Hours (Table) 01/11/22 01/12/22 01/12/22 Range/Units 15:48 07:29 07:29 WBC 11.69 H (4.50-10.00) X 10*3/uL RBC 3.09 L (4.40-5.60) X 10*6/uL Hgb 8.5 L (13.0-17.0) g/dL Hct 26.9 L (39.6-50.0) % MCHC 31.6 L (32.0-37.0) g/dL MPV 9.0 L (9.5-12.2) fL Sodium 146 H (135-145) mmol/L Chloride 110 H (96-109) mmol/L BUN 35.7 H (9.0-27.0) mg/dL BUN/Creatinine Ratio 44.63 H (12.00-20.00) Ratio Calcium 8.0 L (8.7-10.3) mg/dL Troponin I 0.488 H* (0.000-0.034) ng/mL Microbiology - Last 24 Hours (Table) 01/11/22 04:33 Urine Culture - Preliminary Urine,Voided
[2022-01-12] MEDS ORDERED: HYDROCORTISONE SUPPOSITORY 25 MG SUPP RECTAL PRN (12:07)
--- NOTE | 2022-01-12 13:34 | P.PN ---
Subjective Progress Note Date: 01/12/22 Patient is a pleasant 61-year-old came in with comments of coffee-ground emesis multiple episodes of bloody emesis and dark stools has been going on for last couple days. Patient does take meloxicam at home was comparing of abdominal discomfort in the epigastric area had a near syncopal event. Patient will come in on admission 11.9 does have leukocytosis without any evidence of infection. 01/12/2022 Patient is seen in follow-up this morning continues to have dark stools and some abdominal discomfort. General surgery following and planning on EGD on and patient is only maintained on clear liquids and will be nothing by mouth on midnight. Troponins mildly elevated and trending up with third troponin on a downward trend and will consult cardiology. Patient denies any chest pain but is intermittently having episodes of shortness of breath. Patient does use an inhaler that was not reordered and will reorder this. Patient also having some rectal irritation and pain and does have known history of hemorrhoids will order Anusol cream. Hemoglobin also on a downward trend and currently 8.5 from 11.1 yesterday. Patient's sodium also a bit elevated at 146 and was maintained on n ormal saline although currently does not have any IV access and refusing another line at this time will follow-up with repeat labs. Creatinine is 0.8. Patient denies chest pain at this time and is afebrile. Review of systems: Constitutional: No reports of fatigue, fever, or chills Cardiovascular: No reports of chest pain or palpitations Respiratory:reports of occasional shortness of breath GI: No reports of nausea, vomiting, reports dark stools and rectal discomfort : No reports of dysuria or retention Neurovascular: No reports of weakness or numbness All medications have been reviewed Active Medications Hydrocodone Bitart/Acetaminophen (Hydrocodone/Apap 7.5-325mg 1 Each Tab) 1 each PO Q6HR PRN PRN Reason: Pain Atorvastatin Calcium (Atorvastatin 20 Mg Tab) 20 mg PO HS [facility] Budesonide/Formoterol Fumarate (Symbicort 80-4.5 Mcg Inhaler) 2 puff INHALATION RT-BID [facility] Hydrocortisone Acetate (Hydrocortisone Suppository 25 Mg Supp) 25 mg RECTAL BID PRN PRN Reason: Hemorrhoids Sodium Chloride (Saline 0.9%) 1,000 mls @ 75 mls/hr IV .[id number] ON LICENSE OF [facility] Last Admin: 01/12/22 07:30 Dose: 100 mls/hr Ipratropium Mott (Ipratropium 0.5 Mg/2.5 Ml Nebu) 0.5 mg INHALATION RT-QID ON LICENSE OF [facility] Latanoprost (Latanoprost 0.005% Ophth Drops 2.5 Ml Btl) 1 drops BOTH EYES HS ON LICENSE OF [facility] Montelukast Sodium (Montelukast 10 Mg Tab) 10 mg PO HS ON LICENSE OF [facility] Naloxone HCl (Naloxone 0.4 Mg/Ml 1 Ml Vial) 0.2 mg IV Q2M PRN PRN Reason: Opioid Reversal Ondansetron HCl (Ondansetron 4 Mg/2 Ml Vial) 4 mg IVP Q8HR PRN PRN Reason: Nausea And Vomiting Pantoprazole Sodium (Pantoprazole 40 Mg Tablet) 40 mg PO BID ON LICENSE OF [facility] PHYSICAL EXAMINATION: GENERAL: The patient is alert and oriented x3, not in any acute distress. Well developed, well nourished. HEENT: Pupils are round and equally reacting to light. EOMI. No scleral icterus. No conjunctival pallor. Normocephalic, atraumatic. No pharyngeal erythema. No thyromegaly. CARDIOVASCULAR: S1 and S2 present. No murmurs, rubs, or gallops. PULMONARY: Chest is clear to auscultation, no wheezing or crackles. ABDOMEN: Soft, obese, nontender, nondistended, normoactive bowel sounds. No palpable organomegaly. MUSCULOSKELETAL: No joint swelling or deformity. EXTREMITIES: No cyanosis, clubbing, or pedal edema. NEUROLOGICAL: Gross neurological examination did not reveal any focal deficits. SKIN: Patient has a severe peripheral vascular disease with the multiple chronic wounds for which patient follows up with vascular surgery and wound care as an outpatient. Assessment: -Acute upper GI bleed with acute blood loss anemia secondary to that -Peptic ulcer disease secondary to NSAID use -Hemorrhoids -Cerebrovascular disease for which patient underwent stenting in the past patient has multiple arterial ulcers local wound care for that there doesn't appear to be infected -mild acute renal failure prerenal azotemia due to GI bleed patient will be started on IV fluids -mild elevation of troponin without any complaints of chest pain him a EKG shows right bundle-branch block no acute ST-T wave changes on the EKG. No evidence of acute myocardial infarction with second troponin trending up although third troponin is trending down and will consult cardiology -Leukocytosis reactive without any evidence of infection, trending down and is 11.69 today -GI prophylaxis -DVT prophylaxis: Ambulation -Former smoker -Morbid obesity with a BMI of 43.4 -Full code Plan: Recommend patient to be clear liquids and nothing by mouth at midnight and scheduled to undergo EGD tomorrow with general surgery to assess for GI bleed. Patient continues with dark stools and will continue to monitor the hemoglobins closely. Hemoglobin currently stable at 8.5 and will transfuse if 7 or less. Other home medications have been resumed and recommend telemetry monitoring and will consult cardiology as patient did have an upward trend in troponins. Rachael liu currently lost IV access and refusing another IV at this time. Patient denies chest pain or palpitations. Recommend follow-up labs and will await surgical report. The impression and plan of care has been dictated by Katarzyna Sampson, Nurse Practitioner as directed. Dr. Nora MD I have performed a history and examination and MDM of this patient, discussed the same with the dictator, and agree with the dictator's assessment and plan as written ,documented as a scribe. Based on total visit time, I have performed more than 50% of the visit. Objective - Vital Signs Vital signs: Vital Signs Temp 98.4 F 01/12/22 01:10 Pulse 68 01/12/22 01:10 Resp 18 01/12/22 01:10 BP 105/59 01/12/22 01:10 Pulse Ox 96 01/12/22 01:10 FiO2 Intake & Output 01/11/22 01/12/22 01/12/22 18:59 06:59 18:59 Intake Total 275 240 Balance 275 240 Weight 141.067 kg Intake: Oral 240 Blood Product 275 Rc Pheresis As-3 Unit 275 [id number] Other: Voiding Method Toilet # Bowel Movements 3 - Labs CBC & Chem 7: 01/12/22 07:29 01/12/22 07:29 Labs: Abnormal Lab Results - Last 24 Hours (Table) 01/11/22 Range/Units 15:48 Troponin I 0.488 H* (0.000-0.034) ng/mL Microbiology - Last 24 Hours (Table) 01/11/22 04:33 Urine Culture - Preliminary Urine,Voided
[2022-01-12] MEDS ORDERED: LACTATED RINGERS 1,000 ML IV SCH (15:42)
[2022-01-12] MEDS: IPRATROPIUM 0.5 MG/2.5 ML NEBU INHALATION SCH (20:06)
[2022-01-12] MEDS: SYMBICORT 80-4.5 MCG INHALER INHALATION SCH (20:06)
[2022-01-12] MEDS: PANTOPRAZOLE 40 MG TABLET PO SCH (20:41)
[2022-01-12] MEDS ORDERED: ATORVASTATIN 20 MG TAB PO SCH (21:00)
[2022-01-12] MEDS ORDERED: LATANOPROST 0.005% OPHTH DROPS 2.5 ML BTL BOTH EYES SCH (21:00)
[2022-01-12] MEDS ORDERED: MONTELUKAST 10 MG TAB PO SCH (21:00)
[2022-01-13] MEDS: SODIUM CHLORIDE 0.9% 1,000 ML IV SCH (05:49)
[2022-01-13] MEDS: IPRATROPIUM 0.5 MG/2.5 ML NEBU INHALATION SCH ×3 (07:26→16:29)
[2022-01-13] MEDS: SYMBICORT 80-4.5 MCG INHALER INHALATION SCH (07:26)
[2022-01-13 08:19] VITALS: RESP 16
[2022-01-13] MEDS: PANTOPRAZOLE 40 MG TABLET PO SCH (08:30)
--- NOTE | 2022-01-13 08:50 | P.CRDCN ---
History of Present Illness History of present illness: 66-year-old gentleman is admitted to hospital with GI bleed and cardiology had been consulted because of mildly elevated troponin patient comes in with symptoms of abdominal discomfort and near syncope. His troponins are mildly elevated at 0.0 7.4 and 0.1 EKG showed sinus rhythm with incomplete right bundle branch block Patient had a cardiac catheterization 2 years ago by me that revealed normal coronary arteries. The elevated troponin could be related to the GI bleed and anemia. Patient did not have a myocardial infarction. Patient has bilateral varicose veins and apparently underwent surgery for the same I will obtain a 2-D echo to assess his LV function and wall motion. There are normal he does not require any further evaluation for the elevated troponin at this time we may consider an outpatient Lexiscan on him. Constitutional: Denies chills. Denies fever. Eyes: Denies blurred vision. Denies pain. Ears, nose, mouth and throat: Denies headache. Denies sore throat. Cardiovascular: Denies chest pain. Denies shortness of breath. Respiratory: Denies cough. Gastrointestinal: Has abdominal pain and blood per rectum. Denies diarrhea. Denies nausea. Denies vomiting. Musculoskeletal: Denies myalgias. Integumentary: Denies pruritus. Denies rash. Neurological: Denies numbness. Denies weakness. Psychiatric: Denies anxiety. Denies depression. Endocrine: Denies fatigue. Denies weight change. Genitourinary: Denies burning, hematuria, frequency of urination. Hematological: Significant for anemia and melanotic stools General: The patient is awake and alert, in no distress, and does not appear acutely ill. Skin: Skin is warm and dry and no rashes or lesions are noted. Eye: Pupils are equal, round and reactive to light, extra-ocular movements are intact; there is normal conjunctiva bilaterally. Ears, nose, mouth and throat: There are moist mucous membranes and no oral lesions. Neck: The neck is supple, there is no tenderness or JVD. Cardiovascular: There is a regular rate and rhythm. No murmur, rub or gallop is appreciated. Respiratory: Lungs are clear to auscultation, respirations are non-labored, breath sounds are equal. Gastrointestinal: Soft, non-distended, non-tender abdomen without masses or organomegaly noted. There is no rebound or guarding present. Bowel sounds are unremarkable. Back: There is no tenderness to palpation in the midline. There is no obvious deformity. Musculoskeletal: Normal ROM, no tenderness, There is no pedal edema. There is no calf tenderness or swelling. Extremities: Bilateral 1-2+ pitting edema diminished pulses chronic stasis changes and changes of cellulitis Vascular: Femoral pulse is normal. Posterior tibial pulses are normal .Dorsalis pedis is palpable. Neurological: CN II-XII intact. There are no obvious motor or sensory deficits. Speech is normal. Psychiatric: Cooperative, appropriate mood & affect, normal judgment. Assessment and plan: Elevated troponin of no clear clinical significance could be related to anemia GI bleed workup in progress We will obtain a 2-D echo to assess his LV function and wall motion Past Medical History Past Medical History: Hyperlipidemia, Hypertension Additional Past Medical History / Comment(s): Edema BLE, stress test abn, nocturia, ex-smoker, obseity, venous insufficiency, chronic ulcer of leg-healed, pressure in eyes, cellulitis, chronic pain, History of Any Multi-Drug Resistant Organisms: None Reported Past Surgical History: Orthopedic Surgery Additional Past Surgical History / Comment(s): Rt middle finger surgery R/T injury Past Anesthesia/Blood Transfusion Reactions: No Reported Reaction Past Psychological History: No Psychological Hx Reported Smoking Status: Former smoker Past Alcohol Use History: Occasional Additional Past Alcohol Use History / Comment(s): Smoked age 9 to age 44, up to 2 ppd, Quit 1999. Drinks wine now now and then. Past Drug Use History: None Reported - Past Family History Mother Family Medical History: No Reported History Medications and Allergies Home Medications Medication Instructions Recorded Confirmed Type Atorvastatin [Lipitor] 20 mg PO HS 01/11/22 01/11/22 History Fluticasone/Umeclidin/Vilanter 1 puff INHALATION RT-BID 01/11/22 01/11/22 History [Trelegy Ellipta 100-62.5-25] Montelukast Sodium [Singulair] 10 mg PO HS 01/11/22 01/11/22 History Meloxicam, Submicronized 15 mg PO HS 01/12/22 01/12/22 History [Meloxicam] Spironolactone 25 mg PO BID 01/12/22 01/12/22 History Allergies Allergy/AdvReac Type Severity Reaction Status Date / Time No Known Allergies Allergy Verified 01/11/22 07:47 Physical Exam Vitals: Vital Signs Temp Pulse Pulse Pulse Resp BP Pulse Ox 01/13/22 08:10 98.1 F 62 16 121/58 96 01/13/22 07:40 64 01/13/22 07:26 64 01/13/22 04:00 98.1 F 63 20 114/67 98 01/13/22 00:00 99.1 F 65 18 109/66 98 01/12/22 20:20 66 01/12/22 20:09 64 01/12/22 20:00 98.5 F 69 69 18 110/69 01/12/22 15:45 98.0 F 67 16 101/69 95 Intake and Output 01/12/22 01/13/22 01/13/22 22:59 06:59 14:59 Intake Total 75 600 Output Total 100 Balance 75 500 Intake: IV 75 600 Sodium Chloride 0.9% 1, 75 600 000 ml @ 75 mls/hr IV . [id number] [facility] Rx#:[id number] Output: Urine 100 Other: Voiding Method Toilet Urinal # Voids 1 # Bowel Movements 1 Results 01/12/22 07:29 01/12/22 07:29 Cardiac Enzymes 01/12/22 Range/Units 10:10 Troponin I 0.147 H* (0.000-0.034) ng/mL CBC 01/12/22 Range/Units 07:29 WBC 11.69 H (4.50-10.00) X 10*3/uL RBC 3.09 L (4.40-5.60) X 10*6/uL Hgb 8.5 L (13.0-17.0) g/dL Hct 26.9 L (39.6-50.0) % Plt Count 282 (140-440) X 10*3/uL Comprehensive Metabolic Panel 01/12/22 Range/Units 07:29 Sodium 146 H (135-145) mmol/L Potassium 4.4 (3.5-5.5) mmol/L Chloride 110 H (96-109) mmol/L Carbon Dioxide 21.9 (20.0-27.5) mmol/L BUN 35.7 H (9.0-27.0) mg/dL Creatinine 0.8 (0.6-1.5) mg/dL Glucose 102 (70-110) mg/dL Calcium 8.0 L (8.7-10.3) mg/dL Current Medications Generic Name Dose Route Start Last Admin Trade Name Freq PRN Reason Stop Dose Admin Hydrocodone Bitart/Acetaminophen 1 each 01/11/22 12:34 Hydrocodone/Apap 7.5-325mg 1 Each Tab PO Q6HR PRN Pain Atorvastatin Calcium 20 mg 01/12/22 21:00 01/12/22 20:41 Atorvastatin 20 Mg Tab PO 20 mg HS [facility] Administration Budesonide/Formoterol Fumarate 2 puff 01/12/22 20:00 01/13/22 07:26 Symbicort 80-4.5 Mcg Inhaler INHALATION 2 puff RT-BID [facility] Administration Hydrocortisone Acetate 25 mg 01/12/22 12:07 Hydrocortisone Suppository 25 Mg Supp RECTAL BID PRN Hemorrhoids Sodium Chloride 1,000 mls @ 75 mls/hr 01/11/22 11:00 01/13/22 05:49 Saline 0.9% IV 75 mls/hr .[id number] [facility] Administration Lactated Ringer's 1,000 mls @ 20 mls/hr 01/12/22 15:42 01/12/22 17:29 Lactated Ringers IV Not Given .Q24H [facility] Ipratropium Laporte 0.5 mg 01/12/22 20:00 01/13/22 07:26 Ipratropium 0.5 Mg/2.5 Ml Nebu INHALATION 0.5 mg RT-QID [facility] Administration Latanoprost 1 drops 01/12/22 21:00 01/12/22 20:34 Latanoprost 0.005% Ophth Drops 2.5 Ml Btl BOTH EYES Not Given HS [facility] Montelukast Sodium 10 mg 01/12/22 21:00 01/12/22 20:41 Montelukast 10 Mg Tab PO 10 mg HS [facility] Administration Naloxone HCl 0.2 mg 01/11/22 07:09 Naloxone 0.4 Mg/Ml 1 Ml Vial IV Q2M PRN Opioid Reversal Ondansetron HCl 4 mg 01/11/22 07:09 Ondansetron 4 Mg/2 Ml Vial IVP Q8HR PRN Nausea And Vomiting Pantoprazole Sodium 40 mg 01/12/22 21:00 01/12/22 20:41 Pantoprazole 40 Mg Tablet PO 40 mg BID [facility] Administration Intake and Output 01/12/22 01/13/22 01/13/22 22:59 06:59 14:59 Intake Total 75 600 Output Total 100 Balance 75 500 Intake: IV 75 600 Sodium Chloride 0.9% 1, 75 600 000 ml @ 75 mls/hr IV . [id number] [facility] Rx#:[id number] Output: Urine 100 Other: Voiding Method Toilet Urinal # Voids 1 # Bowel Movements 1 01/12/22 07:29 01/12/22 07:29
[2022-01-13 09:17] LABS: Basophils # (A) 0.1 k/uL (0-0.2); Basophils % (A) 1 %; Eosinophils # (A) 0.4 k/uL (0-0.7); Eosinophils % (A) 4 %; Lymphocytes # (A) 2.8 k/uL (1.0-4.8); Lymphocytes % (A) 28 %; MCH 28.4 pg (25.0-35.0); MCV 88.6 fL (80.0-100.0); Mean Platelet Volume 7.3; Monocytes # (A) 0.6 k/uL (0-1.0); Monocytes % (A) 6 %; Neutrophils % (A) 59 %; Platelet Count 346 k/uL (150-450); RBC 3.38 m/uL (4.30-5.90); RDW 13.7 % (11.5-15.5); WBC 10.1 k/uL (3.8-10.6)
[2022-01-13 09:19] LABS: HGB 9.6 gm/dL (13.0-17.5)
[2022-01-13 09:20] LABS: Potassium 4.1 mmol/L (3.5-5.1)
[2022-01-13 09:21] LABS: African American GFR (CKD) >90 (>60 ml/min/1.73 sqM); Anion Gap 6 mmol/L; Blood Urea Nitrogen 19 mg/dL (9-20); Calcium 8.3 mg/dL (8.4-10.2); Carbon Dioxide 24 mmol/L (22-30); Chloride 107 mmol/L (98-107); Glucose 92 mg/dL (74-99); Non-African American GFR(CKD) >90 (>60 ml/min/1.73 sqM); Sodium 137 mmol/L (137-145)
--- NOTE | 2022-01-13 11:16 | CA ---
Transthoracic Echo Report Name: Owen Aldrich Age: 66 Gender: M : 1955 Exam Date: 01/13/2022 09:06 Exam Location: [facility] Ht (in): 64 Wt (lb): 311 Ordering Physician: Joss Arriola MD ([id number]) Attending/Referring Phys: Zeinab FERRIS Spindle Frame Carver Ayaka Domingo RDCS Procedure CPT: Indications: elevated trops Cardiac Hx: Technical Quality: Very technically difficult study Contrast 1: Lumason Total Dose (mL): 3 Contrast 2: Total Dose (mL): MEASUREMENTS (Male / Female) Normal Values 2D ECHO LV Diastolic Diameter PLAX 3.8 cm 4.2 - 5.9 / 3.9 - 5.3 cm LV Systolic Diameter PLAX 4.4 cm IVS Diastolic Thickness 0.9 cm 0.6 - 1.0 / 0.6 - 0.9 cm LVPW Diastolic Thickness 1.5 cm 0.6 - 1.0 / 0.6 - 0.9 cm LV Relative Wall Thickness 0.6 RV Internal Dim ED PLAX 2.9 cm M-MODE Aortic Root Diameter MM 3.7 cm MV E Point Septal Separation 0.5 cm AV Cusp Separation MM 2.1 cm DOPPLER TR Peak Velocity 276.9 cm/s TR Peak Gradient 30.7 mmHg Right Ventricular Systolic Press 33.4 mmHg FINDINGS Left Ventricle Normal left ventricular size, wall thickness, systolic function with no obvious regional wall motion abnormalities. The ejection fraction is visually estimated at 50-55 %. Right Ventricle The right ventricle is normal in size and function. Right Atrium The right atrium is normal in size. Left Atrium The left atrium is normal in size. Mitral Valve Structurally normal mitral valve without significant stenosis or prolapse. There is mild mitral regurgitation. Aortic Valve Trileaflet aortic valve. Aortic valve sclerosis. Tricuspid Valve Structurally normal tricuspid valve without significant stenosis. Pulmonary artery systolic pressure is normal. Pulmonic Valve Structurally normal pulmonic valve without significant stenosis. There is no pulmonic regurgitation. Pericardium Echo free space anterior to the right ventricle likely represents a fat pad. Aorta Normal aortic root dimension. CONCLUSIONS Technically difficult study. Grossley normal systolic function. Doppler exam is suboptimal. No clearcut abnormality. Possible fat pad no pericardial effusion Previewed by: Dr. Malika Strickland MD (Electronically Signed) Final Date: 13 January 2022 11:16
[2022-01-13] MEDS ORDERED: PROPOFOL 10 MG/ML 20 ML VIAL IV ONE (12:06)
[2022-01-13] MEDS ORDERED: LIDOCAINE 2% INJ 20 MG/ML (2 ML VIAL) ONE (12:06)
[2022-01-13] MEDS ORDERED: IV FLUID CONTINUATION 600 ML IV ONE (12:20)
--- NOTE | 2022-01-13 12:34 | P.OP ---
Date of Procedure: 01/13/22 Preoperative Diagnosis: GI bleed Postoperative Diagnosis: Duodenal ulcer Procedure(s) Performed: EGD Anesthesia: MAC Surgeon: Vladimir Gonzalez Pathology: other (Duodenal ulcer) Condition: stable Disposition: PACU Description of Procedure: The patient's placed on the endoscopy table in the lateral position. He received IV sedation. The gastroscope placed oropharynx passed in the esophagus stomach. Scope then placed through the pylorus. In the first portion duodenum there was a large seen. The scope was then brought back. the antrum mildly inflamed. Biopsies performed. Copious retroflexed meters some appeared normal. The GE junction was at 40 cm. The distal esophagus appeared normal. The proximal esophagus appeared normal. Scope withdrawn for patient. There is no evidence of any active GI bleed.
[2022-01-13 15:35] VITALS: BP 117/56; TEMP 97.8
[2022-01-13 16:40] VITALS: PULSE 72
[2022-01-13] MEDS ORDERED: SUCRALFATE 1 GM TAB PO SCH (17:30)
--- NOTE | 2022-01-14 06:23 | P.DS ---
Providers Date of admission: 01/11/22 07:10 Expected date of discharge: 01/13/22 Attending physician: Beto Pascal Consults: 01/11/22 07:09 Consult Physician Routine Consulting Provider: Vladimir Gonzalez Consult Reason/Comments: doesnt want boutt?? Do you want consulting provider notified?: Yes 01/12/22 12:17 Consult Physician Routine Consulting Provider: Joss Arriola Consult Reason/Comments: Elevated trop Do you want consulting provider notified?: Yes Primary care physician: Nimrala Boswell Hospital Course: Final diagnosis -Acute upper GI bleed with acute blood loss anemia secondary to that -Large duodenal ulcer with no active bleeding noted on EGD -Peptic ulcer disease secondary to NSAID use -Hemorrhoids -Cerebrovascular disease for which patient underwent stenting in the past patient has multiple arterial ulcers with no signs of infection -mild acute renal failure prerenal azotemia due to GI bleed, improved -mild elevation of troponin, ruled out acs per cardiology -Leukocytosis reactive without any evidence of infection -GI prophylaxis -DVT prophylaxis -Former smoker -Morbid obesity with a BMI of 43.4 -Full code Discharge disposition Patient is being discharged in a stable condition with guarded prognosis to home. Patient will follow-up with Dr. Boswell in the outpatient setting upon discharge. Patient is to follow up with surgery in one week as scheduled. Recommend repeat labs in 2-3 days to monitor hemoglobin. Patient to follow up with cardiology in the outpatient setting for possible future stress test. Total time taken is greater than 35 minutes. Hospital course This is a 66-year-old male who was recently admitted with dark bloody stools and followed by general surgery. Patient underwent EGD showing a large duodenal ulcer with no active bleeding noted. Patient also with some elevated troponins and was evaluated by cardiology and will follow up outpatient. Patient denies chest pain. Patient resumed on diet and instructed to take carafate and protonix and follow up with surgery for test results. Patient with external hemorrhoids as well and given anusol and instructed to follow up with GI as well. Patient reports no abdominal pain. Currently no reports of chest pain, shortness of breath, or palpitations. Patient is afebrile. No reports of nausea or vomiting and patient is tolerating diet. Patient will be discharged home today. guarded prognosis. Physical exam: Gen: This is a 66 year old male, awake and alert and oriented x3 , morbidly obese HEENT: Head is atraumatic, normocephalic. Pupils equal, round. Sclerae is anicteric. NECK: Supple. No JVD. No lymphadenopathy. No thyromegaly. LUNGS: Clear to auscultation. No wheezes or rhonchi. No intercostal retractions. HEART: Regular rate and rhythm. No murmur. ABDOMEN: Soft. obese. Bowel sounds are present. No masses. No tenderness. EXTREMITIES: No pedal edema. No calf tenderness. NEUROLOGICAL: Patient is awake, alert and oriented x3. Cranial nerves 2 through 12 are grossly intact. Please refer to medication reconciliation sheet for a list of medications. The impression and plan of care has been dictated by Katarzyna Sampson, Nurse Practitioner as directed. Dr. Nora MD I have performed a history and examination and MDM of this patient, discussed the same with the dictator, and agree with the dictator's assessment and plan as written ,documented as a scribe. Based on total visit time, I have performed more than 50% of the visit. Patient Condition at Discharge: Good Plan - Discharge Summary Discharge Rx Participant: No New Discharge Prescriptions: New Hydrocortisone Suppository [Anusol-Hc] 25 mg RECTAL BID PRN #10 suppositor PRN Reason: Hemorrhoids Pantoprazole [Protonix] 40 mg PO BID 30 Days #60 tab Sucralfate [Carafate] 1 gm PO AC-BID 30 Days #60 tab Latanoprost Ophth [Xalatan 0.005%] 1 drops BOTH EYES HS ml Continue Fluticasone/Umeclidin/Vilanter [Trelegy Ellipta 100-62.5-25] 1 puff INHALATION RT-BID Spironolactone 25 mg PO BID Montelukast Sodium [Singulair] 10 mg PO HS Atorvastatin [Lipitor] 20 mg PO HS Discontinued Meloxicam, Submicronized [Meloxicam] 15 mg PO HS Discharge Medication List Atorvastatin [Lipitor] 20 mg PO HS 01/11/22 [History] Fluticasone/Umeclidin/Vilanter [Trelegy Ellipta 100-62.5-25] 1 puff INHALATION RT-BID 01/11/22 [History] Montelukast Sodium [Singulair] 10 mg PO HS 01/11/22 [History] Spironolactone 25 mg PO BID 01/12/22 [History] Hydrocortisone Suppository [Anusol-Hc] 25 mg RECTAL BID PRN #10 suppositor 01/13/22 [Rx] Latanoprost Ophth [Xalatan 0.005%] 1 drops BOTH EYES HS ml 01/13/22 [Rx] Pantoprazole [Protonix] 40 mg PO BID 30 Days #60 tab 01/13/22 [Rx] Sucralfate [Carafate] 1 gm PO AC-BID 30 Days #60 tab 01/13/22 [Rx] Follow up Appointment(s)/Referral(s): Nirmala Boswell III, MD [Primary Care Provider] - 1-2 days (Office to call patient to schedule follow up appointment) Joss Arriola MD [STAFF PHYSICIAN] - 01/24/22 8:45 am Vladimir Gonzalez MD [STAFF PHYSICIAN] - 01/20/22 1:15 pm Patient Instructions/Handouts: Gastrointestinal Bleeding (DC) Activity/Diet/Wound Care/Special Instructions: Activity Limited until follow-up Follow-up with primary care provider on discharge Continue taking medications as prescribed Follow-up with surgery in one week for test results Follow-up with cardiology in the outpatient setting for possible stress testing in the future Continue with Tylenol for pain as needed and avoid all NSAID use Discharge Disposition: HOME SELF-CARE
== END 2022-01-13 17:54 | disposition home or self-care (01) | DRG 378 ==
LOC: EC 01:44 → 4SSUR 07:10 → 3SCARD 01-12 04:35
PROVIDERS: ADMIT Hospitalist; ATTEND Hospitalist
PROC: 0DB78ZX Excision of Stomach, Pylorus, Via Natural or Artificial Opening Endoscopic, Diagnostic (ICD-10-PCS; 2022-01-13)
PROC: 0DB98ZX Excision of Duodenum, Via Natural or Artificial Opening Endoscopic, Diagnostic (ICD-10-PCS; principal; 2022-01-13 11:50)
DX: K26.4 Chronic or unspecified duodenal ulcer with hemorrhage (principal); D62 Acute posthemorrhagic anemia; N17.9 Acute kidney failure, unspecified; Z68.41 Body mass index [BMI] 40.0-44.9, adult; R79.89 Other specified abnormal findings of blood chemistry; K64.4 Residual hemorrhoidal skin tags; I87.8 Other specified disorders of veins; I67.9 Cerebrovascular disease, unspecified; I83.93 Asymptomatic varicose veins of bilateral lower extremities; I45.10 Unspecified right bundle-branch block; T39.395A Adverse effect of other nonsteroidal anti-inflammatory drugs [NSAID], initial encounter; D72.829 Elevated white blood cell count, unspecified; E66.01 Morbid (severe) obesity due to excess calories; E78.5 Hyperlipidemia, unspecified; I10 Essential (primary) hypertension; X58.XXXA Exposure to other specified factors, initial encounter; Z79.1 Long term (current) use of non-steroidal anti-inflammatories (NSAID); Z79.82 Long term (current) use of aspirin; Z79.899 Other long term (current) drug therapy; Z87.891 Personal history of nicotine dependence
CPT/HCPCS: 36415; 43239; 80048; 80053; 81001; 83605; 83690; 83735; 83880; 84100; 84443; 84484; 85025; 85027; 85610; 85730; 86850; 86900; 86901; 86920; 87086; 88305; 88342; 93005; 93306; 94640; 96361; 96374; 99285

== ENCOUNTER 2022-01-13 21:58 | Inpatient (IN) | payer MEDICARE, OTHER ==
[2022-01-13] MEDS ORDERED: PANTOPRAZOLE 40 MG/10 ML VIAL IVP ONE (22:07)
--- NOTE | 2022-01-13 22:14 | ED ---
GI Bleed HPI - General Chief complaint: GI Bleed Stated complaint: SOB Time Seen by Provider: 01/13/22 22:03 Source: patient Mode of arrival: EMS Limitations: no limitations - History of Present Illness Initial comments: This patient is a 66-year-old man who is brought by ambulance to be evaluated after he had some GI bleeding at home. The patient had been admitted in the hospital the prior 2 days for similar, and states that during his stay he had e ndoscopy performed. The endoscopy report shows that there was a duodenal ulcer with no active bleeding. The patient was prescribed medications which she states she started taking. This evening the patient had urge to have a bowel movement, when he did he noticed that there was small amount of some dark blood present. After finishing there, he states he was nauseated, vomited and had what EMS estimated as 160 mls of dark bloody hematemesis. The patient states that at the time of that he noticed heart palpitations. He was diaphoretic. EMS was called and by the time they arrived it sounds like the diaphoresis had stopped. The patient currently denies symptoms. MD complaint: blood streaked emesis, melena -: minutes(s) Radiation: none Quality: painless Consistency: constant Improves with: none Worsens with: none Context: history of GI bleed Associated Symptoms: other (Palpitations) - Related Data Home Medications Medication Instructions Recorded Confirmed Atorvastatin [Lipitor] 20 mg PO HS 01/11/22 01/13/22 Fluticasone/Umeclidin/Vilanter 1 puff INHALATION RT-BID 01/11/22 01/13/22 [Treleamy Ellipta 100-62.5-25] Montelukast Sodium [Singulair] 10 mg PO HS 01/11/22 01/13/22 Spironolactone 25 mg PO BID 01/12/22 01/13/22 Previous Rx's Medication Instructions Recorded Hydrocortisone Suppository 25 mg RECTAL BID PRN #10 suppositor 01/13/22 [Anusol-Hc] Latanoprost Ophth [Xalatan 0.005%] 1 drops BOTH EYES HS ml 01/13/22 Pantoprazole [Protonix] 40 mg PO BID 30 Days #60 tab 01/13/22 Sucralfate [Carafate] 1 gm PO AC-BID 30 Days #60 tab 01/13/22 Allergies Allergy/AdvReac Type Severity Reaction Status Date / Time No Known Allergies Allergy Verified 01/13/22 22:08 Review of Systems ROS Statement: Those systems with pertinent positive or pertinent negative responses have been documented in the HPI. ROS Other: All systems not noted in ROS Statement are negative. Constitutional: Denies: fever, chills Respiratory: Denies: cough, dyspnea Cardiovascular: Reports: palpitations. Denies: chest pain, orthopnea, edema, syncope Gastrointestinal: Reports: nausea, vomiting, hematemesis, melena. Denies: abdominal pain, diarrhea, constipation, hematochezia Genitourinary: Denies: dysuria, hematuria Musculoskeletal: Denies: back pain Skin: Denies: rash Neurological: Denies: headache, weakness, numbness Past Medical History Past Medical History: Hyperlipidemia, Hypertension Additional Past Medical History / Comment(s): Edema BLE, stress test abn, nocturia, ex-smoker, obseity, venous insufficiency, chronic ulcer of leg-healed, pressure in eyes, cellulitis, chronic pain, History of Any Multi-Drug Resistant Organisms: None Reported Past Surgical History: Orthopedic Surgery Additional Past Surgical History / Comment(s): Rt middle finger surgery R/T injury Past Anesthesia/Blood Transfusion Reactions: No Reported Reaction Past Psychological History: No Psychological Hx Reported Smoking Status: Former smoker Past Alcohol Use History: Occasional Past Drug Use History: None Reported - Past Family History Mother Family Medical History: No Reported History General Exam Limitations: no limitations General appearance: alert, in no apparent distress Head exam: Present: atraumatic, normocephalic Eye exam: Present: normal appearance. Absent: scleral icterus, conjunctival injection Neck exam: Present: normal inspection Respiratory exam: Present: normal lung sounds bilaterally. Absent: respiratory distress, wheezes, rales, rhonchi, stridor Cardiovascular Exam: Present: regular rate, normal rhythm, normal heart sounds. Absent: systolic murmur, diastolic murmur, rubs, gallop GI/Abdominal exam: Present: soft. Absent: distended, tenderness, guarding, rebound, rigid, mass, hernia Extremities exam: Present: normal inspection, normal capillary refill. Absent: pedal edema, calf tenderness Back exam: Present: normal inspection Neurological exam: Present: alert Skin exam: Present: warm, dry, intact, pallor. Absent: rash Course Vital Signs 01/13/22 22:00 Temperature 98.0 F Pulse Rate 101 H Respiratory 16 Rate Blood Pressure 124/75 O2 Sat by Pulse 98 Oximetry Medical Decision Making - Lab Data Result diagrams: 01/14/22 00:28 01/14/22 00:28 Lab Results 01/14/22 01/14/22 01/14/22 Range/Units 00:28 00:28 00:28 WBC 13.2 H (3.8-10.6) k/uL RBC 2.90 L (4.30-5.90) m/uL Hgb 8.1 L D (13.0-17.5) gm/dL Hct 25.7 L (39.0-53.0) % MCV 88.6 (80.0-100.0) fL MCH 28.0 (25.0-35.0) pg MCHC 31.6 (31.0-37.0) g/dL RDW 14.1 (11.5-15.5) % Plt Count 362 (150-450) k/uL MPV 7.1 Neutrophils % 86 % Lymphocytes % 8 % Monocytes % 4 % Eosinophils % 0 % Basophils % 0 % Neutrophils # 11.4 H (1.3-7.7) k/uL Lymphocytes # 1.0 (1.0-4.8) k/uL Monocytes # 0.6 (0-1.0) k/uL Eosinophils # 0.0 (0-0.7) k/uL Basophils # 0.1 (0-0.2) k/uL PT 10.2 (9.0-12.0) sec INR 0.9 (<1.2) APTT 17.8 L (22.0-30.0) sec Sodium 138 (137-145) mmol/L Potassium 4.5 (3.5-5.1) mmol/L Chloride 107 (98-107) mmol/L Carbon Dioxide 26 (22-30) mmol/L Anion Gap 5 mmol/L BUN 29 H (9-20) mg/dL Creatinine 1.18 (0.66-1.25) mg/dL Est GFR (CKD-EPI)AfAm 74 (>60 ml/min/1.73 sqM) Est GFR (CKD-EPI)NonAf 64 (>60 ml/min/1.73 sqM) Glucose 111 H (74-99) mg/dL Plasma Lactic Acid Rodolfo (0.7-2.0) mmol/L Calcium 8.1 L (8.4-10.2) mg/dL Total Bilirubin 0.2 (0.2-1.3) mg/dL AST 32 (17-59) U/L ALT 36 (4-49) U/L Alkaline Phosphatase 65 (38-126) U/L Troponin I (0.000-0.034) ng/mL Total Protein 5.6 L (6.3-8.2) g/dL Albumin 3.0 L (3.5-5.0) g/dL 01/14/22 01/14/22 Range/Units 00:28 00:28 WBC (3.8-10.6) k/uL RBC (4.30-5.90) m/uL Hgb (13.0-17.5) gm/dL Hct (39.0-53.0) % MCV (80.0-100.0) fL MCH (25.0-35.0) pg MCHC (31.0-37.0) g/dL RDW (11.5-15.5) % Plt Count (150-450) k/uL MPV Neutrophils % % Lymphocytes % % Monocytes % % Eosinophils % % Basophils % % Neutrophils # (1.3-7.7) k/uL Lymphocytes # (1.0-4.8) k/uL Monocytes # (0-1.0) k/uL Eosinophils # (0-0.7) k/uL Basophils # (0-0.2) k/uL PT (9.0-12.0) sec INR (<1.2) APTT (22.0-30.0) sec Sodium (137-145) mmol/L Potassium (3.5-5.1) mmol/L Chloride (98-107) mmol/L Carbon Dioxide (22-30) mmol/L Anion Gap mmol/L BUN (9-20) mg/dL Creatinine (0.66-1.25) mg/dL Est GFR (CKD-EPI)AfAm (>60 ml/min/1.73 sqM) Est GFR (CKD-EPI)NonAf (>60 ml/min/1.73 sqM) Glucose (74-99) mg/dL Plasma Lactic Acid Rodolfo 1.7 (0.7-2.0) mmol/L Calcium (8.4-10.2) mg/dL Total Bilirubin (0.2-1.3) mg/dL AST (17-59) U/L ALT (4-49) U/L Alkaline Phosphatase (38-126) U/L Troponin I 0.074 H* (0.000-0.034) ng/mL Total Protein (6.3-8.2) g/dL Albumin (3.5-5.0) g/dL - EKG Data -: EKG Interpreted by Al EKG shows normal: sinus rhythm, axis (Normal), intervals (Normal), QRS complexes (Incomplete right bundle branch block pattern) Rate: normal (Rate 94 bpm) Disposition Clinical Impression: GI bleeding Disposition: ADMITTED IP TO THIS HOSP Condition: Good Is patient prescribed a controlled substance at d/c from ED?: No Referrals: Nirmala Boswell III, MD [Primary Care Provider] - 1-2 days Time of Disposition: 01:50
[2022-01-14 00:38] LABS: Basophils # (A) 0.1 k/uL (0-0.2); Basophils % (A) 0 %; Eosinophils % (A) 0 %; HCT 25.7 % (39.0-53.0); Lymphocytes % (A) 8 %; MCHC 31.6 g/dL (31.0-37.0); MCV 88.6 fL (80.0-100.0); Mean Platelet Volume 7.1; Monocytes # (A) 0.6 k/uL (0-1.0); Monocytes % (A) 4 %; Neutrophils # (A) 11.4 k/uL (1.3-7.7); Neutrophils % (A) 86 %; Platelet Count 362 k/uL (150-450); RDW 14.1 % (11.5-15.5); WBC 13.2 k/uL (3.8-10.6)
[2022-01-14 00:50] LABS: HGB 8.1 gm/dL (13.0-17.5)
[2022-01-14 00:53] LABS: INR 0.9 (<1.2); Prothrombin Time 10.2 sec (9.0-12.0)
[2022-01-14 00:56] LABS: Calcium 8.1 mg/dL (8.4-10.2); Potassium 4.5 mmol/L (3.5-5.1); Total Bilirubin 0.2 mg/dL (0.2-1.3); Total Protein 5.6 g/dL (6.3-8.2)
[2022-01-14 01:01] LABS: Partial Thromboplastin Time 17.8 sec (22.0-30.0)
[2022-01-14] MEDS ORDERED: ONDANSETRON 4 MG/2 ML VIAL IVP PRN (01:54)
[2022-01-14] MEDS ORDERED: MORPHINE SULFATE 4 MG/ML SYRINGE IV PRN (01:54)
[2022-01-14] MEDS ORDERED: NALOXONE 0.4 MG/ML 1 ML VIAL IV PRN (01:54)
[2022-01-14 08:30] LABS: HCT 21.8 % (39.0-53.0); HGB 7.1 gm/dL (13.0-17.5); MCH 28.5 pg (25.0-35.0); MCHC 32.6 g/dL (31.0-37.0); MCV 87.5 fL (80.0-100.0); Platelet Count 348 k/uL (150-450); RDW 15.2 % (11.5-15.5); WBC 9.4 k/uL (3.8-10.6)
[2022-01-14] MEDS: PANTOPRAZOLE 40 MG/10 ML VIAL IV SCH (09:28)
[2022-01-14] MEDS: SUCRALFATE 1 GM TAB PO SCH ×2 (09:28→20:40)
[2022-01-14] MEDS: SPIRONOLACTONE 25 MG TAB PO SCH ×2 (09:28→20:40)
[2022-01-14] MEDS: SODIUM CHLORIDE 0.9% 1,000 ML IV SCH (10:33)
--- NOTE | 2022-01-14 10:50 | P.CONS ---
History of Present Illness - Reason for Consult Consult date: 01/14/22 GI bleed Requesting physician: Saul Smalsl - Chief Complaint Coffee-ground emesis - History of Present Illness This is a 66-year-old male who presented to the emergency room yesterday evening around 10 PM with complaints of continued coffee-ground emesis and melena. Ap parently the patient was just recently admitted from [facility] and discharged yesterday afternoon. He was admitted at that time with complaints of persistent nausea and vomiting, dizziness, melena and coffee-ground emesis. He underwent an EGD yesterday with Dr. Gonzalez with reported findings of a duodenal ulcer, nonbleeding. He was started on Carafate and continued on Protonix. He has a past medical history of hyperlipidemia and hypertension. Apparently he also takes Mobic regularly. His last colonoscopy was on 04/13/2021 for rectal bleeding with Dr. Oliveira status post polypectomy and anoscopy with internal hemorrhoidal banding. He denies any anticoagulation. He currently denies any abdominal pain, he does have some nausea no vomiting. Last episode of coffee- ground emesis was yesterday evening before he came in. He states he was having increased shortness of breath and weakness followed by the coffee-ground emesis and melena so came back to the emergency department for further evaluation. Admitting labs WBC 13.2 hemoglobin 8.1 hematocrit 25 platelet count 362,000 INR 0.9 sodium 138 potassium 4.5 BUN 29 creatinine 1.18 LFTs unremarkable, mildly elevated troponins 0.074 Review of Systems REVIEW OF SYSTEMS: CARDIOPULMONARY: No chest pain. Reports shortness of breath and weakness. Gastrointestinal: No abdominal pain or epigastric pain. Nausea and vomiting with coffee-ground emesis. Melena. GENITOURINARY: No dysuria or hematuria. MUSCULOSKELETAL: Reports normal range of motion., Joint pain. SKIN: No rashes. No jaundice. ENDOCRINE: No chills, fevers. No excessive weight gain or loss. No polydipsia or polyuria. PSYCHIATRIC: Unremarkable. NEUROLOGY: No change in mental status. Denies dizziness, headache. ENT: Vision unremarkable. CONSTITUTIONAL: No recent weight loss. No fever, chills, night sweats. Past Medical History Past Medical History: Hyperlipidemia, Hypertension Additional Past Medical History / Comment(s): Edema BLE, stress test abn, nocturia, ex-smoker, obseity, venous insufficiency, chronic ulcer of leg-healed, pressure in eyes, cellulitis, chronic pain, History of Any Multi-Drug Resistant Organisms: None Reported Past Surgical History: Orthopedic Surgery Additional Past Surgical History / Comment(s): Rt middle finger surgery R/T injury Past Anesthesia/Blood Transfusion Reactions: No Reported Reaction Past Psychological History: No Psychological Hx Reported Smoking Status: Former smoker Past Alcohol Use History: Occasional Past Drug Use History: None Reported - Past Family History Mother Family Medical History: No Reported History Medications and Allergies Home Medications Medication Instructions Recorded Confirmed Type Atorvastatin [Lipitor] 20 mg PO HS 01/11/22 01/13/22 History Fluticasone/Umeclidin/Vilanter 1 puff INHALATION RT-BID 01/11/22 01/13/22 History [Trelegy Ellipta 100-62.5-25] Montelukast Sodium [Singulair] 10 mg PO HS 01/11/22 01/13/22 History Spironolactone 25 mg PO BID 01/12/22 01/13/22 History Hydrocortisone Suppository 25 mg RECTAL BID PRN #10 suppositor 01/13/22 01/13/22 Rx [Anusol-Hc] Latanoprost Ophth [Xalatan 0.005%] 1 drops BOTH EYES HS ml 01/13/22 01/13/22 Rx Pantoprazole [Protonix] 40 mg PO BID 30 Days #60 tab 01/13/22 01/13/22 Rx Sucralfate [Carafate] 1 gm PO AC-BID 30 Days #60 tab 01/13/22 01/13/22 Rx Allergies Allergy/AdvReac Type Severity Reaction Status Date / Time No Known Allergies Allergy Verified 01/13/22 22:08 Physical Exam Vitals: Vital Signs Temp Pulse Resp BP Pulse Ox 01/13/22 22:00 98.0 F 101 H 16 124/75 98 Intake and Output 01/13/22 01/14/22 01/14/22 22:59 06:59 14:59 Other: Weight 141.067 kg General appearance: The patient is alert, oriented, appears in no acute distress. Obese. HET: Head is normocephalic and atraumatic. Conjunctiva pink. Sclera anicteric. Neck: Supple without lymphadenopathy. Trachea midline. Heart: S1 S2. Regular rate and rhythm. Lungs: Clear to auscultation. Abdomen: Soft, obese, epigastric tenderness, nondistended with bowel sounds. No guarding or rigidity. Skin: No rashes. No jaundice. Extremities: Normal skin color and turgor. No pedal edema. Neurological: No focal deficits. Alert and oriented x3. Results CBC & Chem 7: 01/14/22 08:21 01/14/22 00:28 Labs: Abnormal Lab Results - Last 24 Hours (Table) 01/14/22 01/14/22 01/14/22 Range/Units 00:28 00:28 00:28 WBC 13.2 H (3.8-10.6) k/uL RBC 2.90 L (4.30-5.90) m/uL Hgb 8.1 L D (13.0-17.5) gm/dL Hct 25.7 L (39.0-53.0) % Neutrophils # 11.4 H (1.3-7.7) k/uL APTT 17.8 L (22.0-30.0) sec BUN 29 H (9-20) mg/dL Glucose 111 H (74-99) mg/dL Calcium 8.1 L (8.4-10.2) mg/dL Troponin I (0.000-0.034) ng/mL Total Protein 5.6 L (6.3-8.2) g/dL Albumin 3.0 L (3.5-5.0) g/dL 01/14/22 Range/Units 00:28 WBC (3.8-10.6) k/uL RBC (4.30-5.90) m/uL Hgb (13.0-17.5) gm/dL Hct (39.0-53.0) % Neutrophils # (1.3-7.7) k/uL APTT (22.0-30.0) sec BUN (9-20) mg/dL Glucose (74-99) mg/dL Calcium (8.4-10.2) mg/dL Troponin I 0.074 H* (0.000-0.034) ng/mL Total Protein (6.3-8.2) g/dL Albumin (3.5-5.0) g/dL Assessment and Plan (1) GI bleeding Narrative/Plan: 66-year-old male who presented back to the hospital following recent hospitalization and discharge yesterday who underwent EGD with Dr. Gonzalez yesterday afternoon with findings of nonbleeding duodenal ulcer. Patient has a history of chronic pelvic use. No anticoagulation. No history of previous upper GI bleed. Return back to the emergency department only after a couple hours of returning home with complaints of nausea with coffee-ground emesis and melena. He also states he had shortness of breath and weakness. He presented back to the emergency department with a hemoglobin of 8.1, with a drop today to 7.1. No further blood loss since admission to the emergency department. Plan to repeat EGD this afternoon. Keep nothing by mouth, continue Carafate and Protonix. Current Visit: Yes Status: Acute Code(s): K92.2 - GASTROINTESTINAL HEMORRHAGE, UNSPECIFIED SNOMED Code(s): 87772499 (2) Duodenal ulcer Narrative/Plan: Gen. surgery on consultation to follow patient for duodenal ulcer. Current Visit: Yes Status: Acute Code(s): K26.9 - DUODENAL ULCER, UNSP ACUTE OR CHRONIC, W/O HEMOR OR PERF SNOMED Code(s): 89979558 Plan: 1. Continue symptomatic and supportive care 2. Keep nothing by mouth 3. Will plan for EGD this afternoon 4. Continue Carafate 5. Continue Protonix 40 mg twice a day 6. Gen. surgery consultation, their recommendations appreciated Thank you for allowing us to participate in the care of the patient, the GI service will sign off, gastroenterology will not be available at the hospital this weekend and through next week. If further evaluation by gastroenterology is required the patient will need transfer as per the primary team's discretion. Dr. Jef Arriola I agree with the dictator's note, documented as a scribe by Paula Mcarthur.
--- NOTE | 2022-01-14 12:57 | P.GSCN ---
History of Present Illness Consult date: 01/14/22 History of present illness: CHIEF COMPLAINT: GI bleed HISTORY OF PRESENT ILLNESS: This is a 66-year-old male who was brought to the ER due to GI bleeding at home. Patient with recent hospitalization and discharge yesterday for GI bleed with coffee-ground emesis and black stools. Patient had been taking Mobic at home. He had EGD completed yesterday 01/13/[address] blackwell which did reveal a duodenal ulcer in the first portion of the duodenum. There is no evidence of any active bleeding. Patient was to continue Protonix and was started on Carafate. Apparently patient had a small amount of dark blood present in his stool. He also had an episode of vomiting which was dark and bloody. Patient also had reported some epigastric pain. Hemoglobin on admi ssion was 8.1 did drop to 7.1. GI service was consult at. Patient is scheduled for repeat EGD with GI service today. Patient has had no further black stools or emesis since being in the ER. Patient's Mobic was discontinued. PAST MEDICAL HISTORY: See list. PAST SURGICAL HISTORY: See list. MEDICATIONS: See list. ALLERGIES: See list. SOCIAL HISTORY: No illicit drug use. REVIEW OF SYSTEMS: CONSTITUTIONAL: Denies fever or chills. HEENT: Denies blurred vision, vision changes, or eye pain. Denies hemoptysis CARDIOVASCULAR: Denies chest pain or pressure. RESPIRATORY: No shortness of breath. GASTROINTESTINAL: See HPI for pertinent findings HEMATOLOGIC: Denies bleeding disorders. GENITOURINARY: Denies any blood in urine or increased urinary frequency. SKIN: Denies pruitis. Denies rash. PHYSICAL EXAM: VITAL SIGNS: Reviewed GENERAL: Well-developed in no acute distress. HEENT: No sclera icterus. Extraocular movements grossly intact. Moist buccal mucosa. Head is atraumatic, normocephalic. No nasal drainage. ABDOMEN: Soft. Nondistended. mild epigastric tenderness NEUROLOGIC: Alert and oriented. Cranial nerves II through XII grossly intact. LABORATORY DATA: WBC 13.2 down to 9.4 Hgb 9.6 at discharge. hgb 8.1 on admission to 7.1 platelets 348 IMAGING: ASSESSMENT: 1. Acute GI bleed 2. Duodenal ulcer with recent EGD yesterday that had shown no active bleeding PLAN: -Patient scheduled for repeat EGD today with GI service -Continue Protonix and Carafate -Continue to monitor for signs and symptoms of bleeding -Continue to monitor hemoglobin -Continue supportive care Physician Bee Farmer note has been reviewed by physician. Signing provider agrees with the documented findings, assessment, and plan of care. Past Medical History Past Medical History: Hyperlipidemia, Hypertension Additional Past Medical History / Comment(s): Edema BLE, stress test abn, nocturia, ex-smoker, obseity, venous insufficiency, chronic ulcer of leg-healed, pressure in eyes, cellulitis, chronic pain, History of Any Multi-Drug Resistant Organisms: None Reported Past Surgical History: Orthopedic Surgery Additional Past Surgical History / Comment(s): Rt middle finger surgery R/T injury Past Anesthesia/Blood Transfusion Reactions: No Reported Reaction Past Psychological History: No Psychological Hx Reported Smoking Status: Former smoker Past Alcohol Use History: Occasional Past Drug Use History: None Reported - Past Family History Mother Family Medical History: No Reported History Medications and Allergies Home Medications Medication Instructions Recorded Confirmed Type Atorvastatin [Lipitor] 20 mg PO HS 01/11/22 01/13/22 History Fluticasone/Umeclidin/Vilanter 1 puff INHALATION RT-BID 01/11/22 01/13/22 History [Trelegy Ellipta 100-62.5-25] Montelukast Sodium [Singulair] 10 mg PO HS 01/11/22 01/13/22 History Spironolactone 25 mg PO BID 01/12/22 01/13/22 History Hydrocortisone Suppository 25 mg RECTAL BID PRN #10 suppositor 01/13/22 01/13/22 Rx [Anusol-Hc] Latanoprost Ophth [Xalatan 0.005%] 1 drops BOTH EYES HS ml 01/13/22 01/13/22 Rx Pantoprazole [Protonix] 40 mg PO BID 30 Days #60 tab 01/13/22 01/13/22 Rx Sucralfate [Carafate] 1 gm PO AC-BID 30 Days #60 tab 01/13/22 01/13/22 Rx Allergies Allergy/AdvReac Type Severity Reaction Status Date / Time No Known Allergies Allergy Verified 01/13/22 22:08 Surgical - Exam Vital Signs Temp Pulse Resp BP Pulse Ox 98.0 F 101 H 16 124/75 98 01/13/22 22:00 01/13/22 22:00 01/13/22 22:00 01/13/22 22:00 01/13/22 22:00 Results - Labs 01/14/22 08:21 01/14/22 00:28 Abnormal Lab Results - Last 24 Hours (Table) 01/14/22 01/14/22 01/14/22 Range/Units 00:28 00:28 00:28 WBC 13.2 H (3.8-10.6) k/uL RBC 2.90 L (4.30-5.90) m/uL Hgb 8.1 L D (13.0-17.5) gm/dL Hct 25.7 L (39.0-53.0) % Neutrophils # 11.4 H (1.3-7.7) k/uL APTT 17.8 L (22.0-30.0) sec BUN 29 H (9-20) mg/dL Glucose 111 H (74-99) mg/dL Calcium 8.1 L (8.4-10.2) mg/dL Troponin I (0.000-0.034) ng/mL Total Protein 5.6 L (6.3-8.2) g/dL Albumin 3.0 L (3.5-5.0) g/dL 01/14/22 01/14/22 Range/Units 00:28 08:21 WBC (3.8-10.6) k/uL RBC 2.50 L (4.30-5.90) m/uL Hgb 7.1 L (13.0-17.5) gm/dL Hct 21.8 L (39.0-53.0) % Neutrophils # (1.3-7.7) k/uL APTT (22.0-30.0) sec BUN (9-20) mg/dL Glucose (74-99) mg/dL Calcium (8.4-10.2) mg/dL Troponin I 0.074 H* (0.000-0.034) ng/mL Total Protein (6.3-8.2) g/dL Albumin (3.5-5.0) g/dL Diabetes panel 01/14/22 Range/Units 00:28 Sodium 138 (137-145) mmol/L Potassium 4.5 (3.5-5.1) mmol/L Chloride 107 (98-107) mmol/L Carbon Dioxide 26 (22-30) mmol/L BUN 29 H (9-20) mg/dL Creatinine 1.18 (0.66-1.25) mg/dL Glucose 111 H (74-99) mg/dL Calcium 8.1 L (8.4-10.2) mg/dL AST 32 (17-59) U/L ALT 36 (4-49) U/L Alkaline Phosphatase 65 (38-126) U/L Total Protein 5.6 L (6.3-8.2) g/dL Albumin 3.0 L (3.5-5.0) g/dL Calcium panel 01/14/22 Range/Units 00:28 Calcium 8.1 L (8.4-10.2) mg/dL Albumin 3.0 L (3.5-5.0) g/dL Pituitary panel 01/14/22 Range/Units 00:28 Sodium 138 (137-145) mmol/L Potassium 4.5 (3.5-5.1) mmol/L Chloride 107 (98-107) mmol/L Carbon Dioxide 26 (22-30) mmol/L BUN 29 H (9-20) mg/dL Creatinine 1.18 (0.66-1.25) mg/dL Glucose 111 H (74-99) mg/dL Calcium 8.1 L (8.4-10.2) mg/dL Adrenal panel 01/14/22 Range/Units 00:28 Sodium 138 (137-145) mmol/L Potassium 4.5 (3.5-5.1) mmol/L Chloride 107 (98-107) mmol/L Carbon Dioxide 26 (22-30) mmol/L BUN 29 H (9-20) mg/dL Creatinine 1.18 (0.66-1.25) mg/dL Glucose 111 H (74-99) mg/dL Calcium 8.1 L (8.4-10.2) mg/dL Total Bilirubin 0.2 (0.2-1.3) mg/dL AST 32 (17-59) U/L ALT 36 (4-49) U/L Alkaline Phosphatase 65 (38-126) U/L Total Protein 5.6 L (6.3-8.2) g/dL Albumin 3.0 L (3.5-5.0) g/dL
[2022-01-14] MEDS ORDERED: HYDROCORTISONE SUPPOSITORY 25 MG SUPP RECTAL PRN (14:51)
--- NOTE | 2022-01-14 15:00 | P.HPIM ---
History of Present Illness H&P Date: 01/14/22 This is a 66-year-old male who presented to the emergency department via EMS after an episode of hematemesis and continued melena. Patient was recently discharged one day prior after an EGD with a reported duodenal ulcer with no active bleeding and was discharged home on Protonix and Carafate and to follow- up with surgery and GI in the outpatient setting. Patient does have a past medical history of hyperlipidemia, hypertension, morbid obesity, chronic venous insufficiency with chronic ulcers and sees wound care in the outpatient setting, and former smoker. Patient reports to occasional alcohol use and denies any illicit drug use. On admission labs revealed a WBC of 13.2, hemoglobin was 8.1, INR 0.9, sodium 138, potassium 4.5, BUN 29, creatinine 1.18, plasma lactic acid 1.7, calcium 8.1, troponin 0.074. This morning was a drop in hemoglobin of 7.1 and will continue to monitor closely. Patient did have mildly elevated troponins 2 days prior and was evaluated by cardiology and to follow-up in the outpatient setting as patient denied any chest pain or palpitations. Per EMS report patient reported feelings of diaphoresis and palpitations after vomiting blood. GI was consulted and will discuss with surgery as well as general surgery Dr. Gonzalez performed the EGD yesterday. Patient placed on Protonix and home meds have been resumed and will await GI consult. Recommend telemetry monitoring. Review Of Systems: Constitutional: No fever, no chills, no night sweats. No weight change. No weakness, fatigue or lethargy. No daytime sleepiness. EENT: No headache. No blurred vision or double vision, no loss of vision. No loss of Hearing, no ringing in the ears, no dizziness. No nasal drainage or congestion. No epistaxis. No sore throat. Lungs: No shortness of breath, cough, no sputum production. No wheezing. Cardiovascular: No chest pain, no lower extremity edema. No palpitations. No paroxysmal nocturnal dyspnea. No orthopnea. No lightheadedness or dizziness. No syncopal episodes. Abdominal: No abdominal pain. No nausea, reports vomiting blood. No diarrhea. No constipation. Reports dark bloody stools.. Report loss of appetite. Genitourinary: No dysuria, increased frequency, urgency. No urinary retention. Musculoskeletal: No myalgias. No muscle weakness, no gait dysfunction, no frequent falls. No back pain. No neck pain. Integumentary: No wounds, no lesions. No rash or pruritus. No unusual bruising. No change in hair or nails. Neurologic: No aphasia. No facial droop. No change in mentation. No head injury. No headache. No paralysis. No paresthesia. Psychiatric: No depression. No anxiety. No mood swings. Endocrine: No abnormal blood sugars. No weight change. No excessive sweating or thirst. No cold intolerance. PHYSICAL EXAMINATION: GENERAL: The patient is alert and oriented x4, morbidly obese. Well developed, well nourished. Pale HEENT: Pupils are round and equally reacting to light. EOMI. no scleral icterus. No conjunctival pallor. Normocephalic, atraumatic. No pharyngeal erythema. No thyromegaly. CARDIOVASCULAR: S1 and S2 muffled PULMONARY: diminished breath sounds bilaterally with no wheezing or rhonchi noted. ABDOMEN: soft. Nontender on exam. obese. non-distended, normoactive bowel sounds. No palpable organomegaly. MUSCULOSKELETAL: No joint swelling or deformity. EXTREMITIES: No cyanosis, clubbing, or pedal edema. NEUROLOGICAL: Gross neurological examination did not reveal any focal deficits. Diffuse weakness SKIN: No rashes. Assessment: Hematemesis possibly secondary to duodenal ulcer noted on EGD on 01/13/2022 Acute blood loss anemia secondary to above Recent admission of acute upper GI bleed Peptic ulcer disease secondary to NSAID use Hemorrhoids Leukocytosis reactive without any evidence of infection Hyperlipidemia Hypertension Chronic venous insufficiency with chronic ulcers and follows with wound care in the outpatient setting Morbid obesity with a BMI of 43.4 GI prophylaxis DVT prophylaxis Full code Plan: Recommend to continue with current medications and have consulted GI and also will consult general surgery as patient just underwent EGD yesterday showing large duodenal ulcer with no active bleeding. Patient returned home and was noted to have hematemesis an episode of continued dark stools and continues to have a drop in hemoglobin. Patient's hemoglobin is currently stable at 7.1 and will monitor closely and transfuse as needed if less than 7. Will await EGD report with GI. General surgery to continue following and GI services not available after today. Patient was taking NSAIDs in the form of Mobic and those have been discontinued. Will follow-up with repeat labs and patient will be nothing by mouth until GI evaluates the patient and home medications have been resumed. Recommend to continue with telemetry monitoring. Patient and nursing staff reports no further episodes of emesis or bloody stools since ER arrival. The impression and plan of care has been dictated by Katarzyna Sampson, nurse practitioner as directed. Dr. Nora MD I have performed a history and examination and MDM of this patient, discussed the same with the dictator, and agree with the dictator's assessment and plan as written ,documented as a scribe. Based on total visit time, I have performed more than 50% of the visit. Any additional findings or plans will be noted. Past Medical History Past Medical History: Hyperlipidemia, Hypertension Additional Past Medical History / Comment(s): Edema BLE, stress test abn, nocturia, ex-smoker, obseity, venous insufficiency, chronic ulcer of leg-healed, pressure in eyes, cellulitis, chronic pain, History of Any Multi-Drug Resistant Organisms: None Reported Past Surgical History: Orthopedic Surgery Additional Past Surgical History / Comment(s): Rt middle finger surgery R/T injury Past Anesthesia/Blood Transfusion Reactions: No Reported Reaction Past Psychological History: No Psychological Hx Reported Smoking Status: Former smoker Past Alcohol Use History: Occasional Past Drug Use History: None Reported - Past Family History Mother Family Medical History: No Reported History Medications and Allergies Home Medications Medication Instructions Recorded Confirmed Type Atorvastatin [Lipitor] 20 mg PO HS 01/11/22 01/13/22 History Fluticasone/Umeclidin/Vilanter 1 puff INHALATION RT-BID 01/11/22 01/13/22 Histor y [Trelegy Ellipta 100-62.5-25] Montelukast Sodium [Singulair] 10 mg PO HS 01/11/22 01/13/22 History Spironolactone 25 mg PO BID 01/12/22 01/13/22 History Hydrocortisone Suppository 25 mg RECTAL BID PRN #10 suppositor 01/13/22 01/13/22 Rx [Anusol-Hc] Latanoprost Ophth [Xalatan 0.005%] 1 drops BOTH EYES HS ml 01/13/22 01/13/22 Rx Pantoprazole [Protonix] 40 mg PO BID 30 Days #60 tab 01/13/22 01/13/22 Rx Sucralfate [Carafate] 1 gm PO AC-BID 30 Days #60 tab 01/13/22 01/13/22 Rx Allergies Allergy/AdvReac Type Severity Reaction Status Date / Time No Known Allergies Allergy Verified 01/13/22 22:08 Physical Exam Vitals: Vital Signs Temp Pulse Resp BP Pulse Ox 01/13/22 22:00 98.0 F 101 H 16 124/75 98 Intake and Output 01/13/22 01/14/22 01/14/22 22:59 06:59 14:59 Other: Weight 141.067 kg Results CBC & Chem 7: 01/14/22 08:21 01/14/22 00:28 Labs: Abnormal Lab Results - Last 24 Hours (Table) 01/14/22 01/14/22 01/14/22 Range/Units 00:28 00:28 00:28 WBC 13.2 H (3.8-10.6) k/uL RBC 2.90 L (4.30-5.90) m/uL Hgb 8.1 L D (13.0-17.5) gm/dL Hct 25.7 L (39.0-53.0) % Neutrophils # 11.4 H (1.3-7.7) k/uL APTT 17.8 L (22.0-30.0) sec BUN 29 H (9-20) mg/dL Glucose 111 H (74-99) mg/dL Calcium 8.1 L (8.4-10.2) mg/dL Troponin I (0.000-0.034) ng/mL Total Protein 5.6 L (6.3-8.2) g/dL Albumin 3.0 L (3.5-5.0) g/dL 01/14/22 01/14/22 Range/Units 00:28 08:21 WBC (3.8-10.6) k/uL RBC 2.50 L (4.30-5.90) m/uL Hgb 7.1 L (13.0-17.5) gm/dL Hct 21.8 L (39.0-53.0) % Neutrophils # (1.3-7.7) k/uL APTT (22.0-30.0) sec BUN (9-20) mg/dL Glucose (74-99) mg/dL Calcium (8.4-10.2) mg/dL Troponin I 0.074 H* (0.000-0.034) ng/mL Total Protein (6.3-8.2) g/dL Albumin (3.5-5.0) g/dL Thrombosis Risk Factor Assmnt - DVT/VTE Prophylaxis DVT/VTE Prophylaxis: Contraindicated - See note Assessment and Plan Time with Patient: Greater than 30
[2022-01-14] MEDS ORDERED: IV FLUID CONTINUATION 1,000 ML IV ONE (15:13)
[2022-01-14] MEDS ORDERED: LIDOCAINE 2% INJ 20 MG/ML (2 ML VIAL) ONE (15:26)
[2022-01-14] MEDS ORDERED: PROPOFOL 10 MG/ML 20 ML VIAL IV ONE (15:26)
[2022-01-14] MEDS ORDERED: EPINEPHrine 10 ML SYRINGE (0.1 MG/ML) MISCELLANE ONE (15:39)
--- NOTE | 2022-01-14 15:46 | P.PCN ---
Date of Procedure: 01/14/22 Procedure(s) Performed: BRIEF HISTORY: Patient is a 66-year-old, pleasant, white male admitted hospital with coffee-ground emesis. He was just admitted hospital 2 days ago with acute upper GI bleed and underwent an upper endoscopy by Dr Gonzalez yesterday and was noted to have duodenal ulcer. He was discharged home and a few hours later had another episode of black tarry stools with coffee-ground emesis and hence he was readmitted to the hospital. Hemoglobin dropped to 7.5 g/dL. He is hence scheduled for an upper endoscopy to evaluate further PROCEDURE PERFORMED: Esophagogastroduodenoscopy with injection epinephrine and Endo Clip placement. PREOPERATIVE DIAGNOSIS: Acute UG bleed. IV sedation per anesthesia. PROCEDURE: After informed consent was obtained, the patient was brought into the endoscopy unit. IV sedation was administered by Anesthesia under continuous monitoring. Initially the Olympus GIF-140 video endoscope was inserted into the mouth. Esophagus intubated without any difficulty. It was gradually advanced into the stomach and duodenum and carefully examined. The second part of the duodenum appeared normal. The bulb of the duodenum there was a 2 cm duodenal ulcer identified. There was a small clot with some food particles adjacent to this area. No active bleeding seen. Irrigation was performed. 1 in 10,000 epinephrine was injected at the base of the ulcer. Following this there was a small visible vessel identified and 2 endoclips were placed. The scope at this time was withdrawn to the stomach, adequately insufflated with air, and upon careful examination, mucosa of the antrum, body, cardia and the fundus appeared normal. The scope was then withdrawn into the esophagus. The GE junction was located at 39 cm from the incisors. Small hiatal hernia noted. The esophagus appeared normal. There were no erosions or ulcerations seen and the patient tolerated the procedure well. IMPRESSION: 1. 2 cm duodenal ulcer in the duodenal bulb with clot status post injection epinephrine and Endo Clip placement. 2. Small hiatal hernia.. RECOMMENDATIONS: The findings of this examination were discussed with the patient at this time he will be started on clear liquid diet. Continue Protonix 40 mg twice daily. Monitor CBC daily...
[2022-01-14] MEDS: ATORVASTATIN 20 MG TAB PO SCH (20:40)
[2022-01-14] MEDS: MONTELUKAST 10 MG TAB PO SCH (20:40)
[2022-01-14] MEDS: LATANOPROST 0.005% OPHTH DROPS 2.5 ML BTL BOTH EYES SCH (20:43)
[2022-01-15 00:14] LABS: Basophils % (A) 0 %; Eosinophils # (A) 0.2 k/uL (0-0.7); Eosinophils % (A) 2 %; HCT 22.5 % (39.0-53.0); HGB 7.3 gm/dL (13.0-17.5); Hypochromasia Slight; Lymphocytes % (A) 20 %; MCH 29.4 pg (25.0-35.0); MCHC 32.5 g/dL (31.0-37.0); MCV 90.5 fL (80.0-100.0); Mean Platelet Volume 7.7; Monocytes # (A) 0.6 k/uL (0-1.0); Monocytes % (A) 6 %; Neutrophils # (A) 7.3 k/uL (1.3-7.7); Neutrophils % (A) 71 %; Platelet Count 365 k/uL (150-450); RBC 2.49 m/uL (4.30-5.90); RDW 15.6 % (11.5-15.5); WBC 10.3 k/uL (3.8-10.6)
[2022-01-15] MEDS: SODIUM CHLORIDE 0.9% 1,000 ML IV SCH ×3 (05:56→16:24)
[2022-01-15] MEDS: SUCRALFATE 1 GM TAB PO SCH ×2 (05:57→16:29)
[2022-01-15] MEDS: IPRATROPIUM 0.5 MG/2.5 ML NEBU INHALATION SCH ×4 (07:17→20:54)
[2022-01-15] MEDS: SYMBICORT 80-4.5 MCG INHALER INHALATION SCH ×2 (07:18→20:54)
[2022-01-15] MEDS: PANTOPRAZOLE 40 MG/10 ML VIAL IV SCH (07:49)
[2022-01-15] MEDS: SPIRONOLACTONE 25 MG TAB PO SCH ×2 (07:49→20:25)
--- NOTE | 2022-01-15 11:40 | P.PN ---
Subjective Progress Note Date: 01/15/22 CHIEF COMPLAINT: Bleeding duodenal ulcer HISTORY OF PRESENT ILLNESS: The patient is a 66-year-old male who had upper endoscopy twice for bleeding duodenal ulcer. He status post upper endoscopy with injection of epinephrine and clipping by GI team yesterday. No reports of blood in stools. No reports of epigastric pain. He is tolerating liquid diet. His main concern includes new swelling of the legs. ROS: No reports of nausea and vomiting. No bowel movements. No fevers or chills. No new chest pain. No productive sputum PHYSICAL EXAM: VITAL SIGNS: Reviewed CONSTITUTIONAL: Well developed and in no acute distress. EYES: Conjuctivae without sclera icterus. Extraocular movements grossly intact. HEAD, EARS, NOSE, THROAT: Moist buccal mucosa. Head is atraumatic, normocephalic. Hears conversational speech. No nasal drainage. RESPIRATORY: Non-labored respirations and equal bilateral excursions. CARDIOVASCULAR: Palpable 2+ radial pulses. ABDOMEN: Obese. Nontender. MUSCULOSKELETAL: No gross deformity of the lower extremities noted. No clubbing. No cyanosis. SKIN: Good skin turgor. Well perfused. NEUROLOGIC: Cranial nerves II through XII grossly intact. No focal or latera lizing signs. PSYCH: Appropriate affect. Alert and oriented to person, place and time. CLINICAL LABS: Reviewed. Hemoglobin stable 7.1-7.3, anemia ASSESSMENT: 1. Acute blood loss anemia due to duodenal ulcer 2. Morbid obesity due to excess calories, BMI 43.4 PLAN: 1. Avoid NSAIDs including blood thinners due to recent bleeding from large duodenal ulcer 2. Continue liquid diet however just a low-sodium 3. Protonix and Carafate continue Objective - Vital Signs Vital signs: Vital Signs Temp 98.2 F 01/15/22 07:44 Pulse 65 01/15/22 07:44 Resp 18 01/15/22 08:00 BP 115/56 01/15/22 07:44 Pulse Ox 96 01/15/22 07:44 FiO2 Intake & Output 01/14/22 01/15/22 01/15/22 18:59 06:59 18:59 Intake Total 300 Output Total 400 500 Balance -100 -500 Weight 141.067 kg Intake: IV 300 Output: Urine 400 500 - Labs CBC & Chem 7: 01/14/22 23:46 01/14/22 00:28 Labs: Abnormal Lab Results - Last 24 Hours (Table) 01/14/22 Range/Units 23:46 RBC 2.49 L (4.30-5.90) m/uL Hgb 7.3 L (13.0-17.5) gm/dL Hct 22.5 L (39.0-53.0) % RDW 15.6 H (11.5-15.5) %
--- NOTE | 2022-01-15 13:10 | P.DS ---
Providers Date of admission: 01/14/22 01:54 Attending physician: Saul Smalls MD Consults: 01/14/22 01:54 Consult Physician Urgent Consulting Provider: Kecia Arriola Consult Reason/Comments: GI bleeding Do you want consulting provider notified?: Yes 01/14/22 09:47 Consult Physician Urgent Consulting Provider: Vladimir Gonzalez Consult Reason/Comments: duodenal ulcer, recent EGD Do you want consulting provider notified?: Yes Primary care physician: Nirmala Boswell Hospital Course: Final Diagnosis Hematemesis secondary to duodenal ulcer patient is status post epinephrine injection and Endo Clip placement to 2 cm duodenal ulcer in the duodenal bulb Acute blood loss anemia secondary to above Recent admission of acute upper GI bleed Peptic ulcer disease secondary to NSAID use Hemorrhoids Leukocytosis reactive without any evidence of infection Hyperlipidemia Hypertension Chronic venous insufficiency with chronic ulcers and follows with wound care in the outpatient setting Morbid obesity with a BMI of 43.4 Full code Discharge disposition Patient is stable for discharge home status post Endo Clip and epinephrine injection to duodenal ulcer. Hemoglobin has remained stable at 7.3 and repeat a CBC outpatient in 2 days. Patient is tolerating clear liquid diet and has been advanced to full liquid diet for lunch. Recommending a low-sodium diet as well as patient does experience some lower extremity edema with added sodium to the diet. Recommend follow up with primary care in 2-3 days. Also recommend follow up with GI specialist Dr Jef Arriola for ongoing monitoring. Continue on protonix 40 mg PO BID and also carafate three times a day. Avoid all NSAID use, blood thinners, Avoid alcohol. Hospital Course This is a 66-year-old male who presented to the emergency department via EMS after an episode of hematemesis and continued melena. Patient was recently discharged one day prior after an EGD with a reported duodenal ulcer with no active bleeding and was discharged home on Protonix and Carafate and to follow- up with surgery and GI in the outpatient setting. Patient does have a past medical history of hyperlipidemia, hypertension, morbid obesity, chronic venous insufficiency with chronic ulcers and sees wound care in the outpatient setting, and former smoker. Patient reports to occasional alcohol use and denies any illicit drug use. On admission labs revealed a WBC of 13.2, hemoglobin was 8.1, INR 0.9, sodium 138, potassium 4.5, BUN 29, creatinine 1.18, plasma lactic acid 1.7, calcium 8.1, troponin 0.074. This morning was a drop in hemoglobin of 7.1 and will continue to monitor closely. Patient did have mildly elevated troponins 2 days prior and was evaluated by cardiology and to follow-up in the outpatient setting as patient denied any chest pain or palpitations. Per EMS report patient reported feelings of diaphoresis and palpitations after vomiting blood. GI was consulted and will discuss with surgery as well as general surgery Dr. Gonzalez performed the EGD prior admission. Patient underwent EGD with Dr. Jef Arriola with for possible acute upper GI Bleed. At the bulb of duodenum there was a 2 cm duodenal ulcer identified and there was a small clot with food particles adjacent. No active bleeding was found and at the base of the ulcer epinephrine was injected. There is also a small viable vessel found and 2 endoclips were placed. Small hiatal hernia was evidenced. No erosions or ulcerations were found in the esophagus. Patient was started on clear liquid diet post procedure. 01/15/2022 Patient evaluated today sitting up in a chair. He does report some increased peripheral edema and has ASA hose in place. He was started on clear liquid diet and states that he had sodium in the broth which caused lower extremity swelling. He also complains of some musculoskeletal pain to his left shoulder that is positional he has full range of motion. The pain subsides with correct positioning per patient and heat improves the discomfort. Denies chest pain, shortness of breath. Denies dizziness or lightheadedness. He is passing gas. Urinating without difficulty. Denies nausea, vomiting, diarrhea. No hematemesis or melena noted. There is no abdominal tenderness on palpation. Lungs are clear, S1-S2 auscultated. Focal neurologic exam is negative. He is recommended to follow-up with GI services as well as general surgery and cardiology on discharge. Repeat CBC in 2 days. Recommended to continue compression stockings to bilateral lower extremity. Recommend advancing diet as tolerated with low sodium. Please see medication reconciliation for list of current medications. Thank you for allowing us to participate in the care of this patient. The impression and plan of care has been dictated by Thao Wilkinson Nurse Practitioner as directed. Dr. Nora MD I have performed a history and physical examination and medical decision making of this patient, discussed the same with the dictator, and agree with the dictators assessment and plan as written, documented as a scribe. Based on total visit time, I have performed more than 50% of this visit. Patient Condition at Discharge: Good Plan - Discharge Summary Discharge Rx Participant: Yes New Discharge Prescriptions: Continue Fluticasone/Umeclidin/Vilanter [Trelegy Ellipta 100-62.5-25] 1 puff INHALATION RT-BID Spironolactone 25 mg PO BID Hydrocortisone Suppository [Anusol-Hc] 25 mg RECTAL BID PRN #10 suppositor PRN Reason: Hemorrhoids Pantoprazole [Protonix] 40 mg PO BID 30 Days #60 tab Montelukast Sodium [Singulair] 10 mg PO HS Atorvastatin [Lipitor] 20 mg PO HS Sucralfate [Carafate] 1 gm PO AC-BID 30 Days #60 tab Latanoprost Ophth [Xalatan 0.005%] 1 drops BOTH EYES HS ml Discharge Medication List Atorvastatin [Lipitor] 20 mg PO HS 01/11/22 [History] Fluticasone/Umeclidin/Vilanter [Trelegy Ellipta 100-62.5-25] 1 puff INHALATION RT-BID 01/11/22 [History] Montelukast Sodium [Singulair] 10 mg PO HS 01/11/22 [History] Spironolactone 25 mg PO BID 01/12/22 [History] Hydrocortisone Suppository [Anusol-Hc] 25 mg RECTAL BID PRN #10 suppositor 01/13/22 [Rx] Latanoprost Ophth [Xalatan 0.005%] 1 drops BOTH EYES HS ml 01/13/22 [Rx] Pantoprazole [Protonix] 40 mg PO BID 30 Days #60 tab 01/13/22 [Rx] Sucralfate [Carafate] 1 gm PO AC-BID 30 Days #60 tab 01/13/22 [Rx] Follow up Appointment(s)/Referral(s): Nirmala Boswell III, MD [Primary Care Provider] - 1-2 days Kecia Arriola MD [STAFF PHYSICIAN] - 1 Week Vladimir Gonzalez MD [STAFF PHYSICIAN] - 1 Week Ambulatory/Diagnostic Orders: Complete Blood Count w/diff [LAB.AMB] Time Frame: 2 Days, Location: None Selected Patient Instructions/Handouts: Peptic Ulcer (DC) Activity/Diet/Wound Care/Special Instructions: Avoid all NSAID and blood thinner use Continue with protonix twice a day and carafate 3 times a day Advance diet as tolerated, recommend low sodium diet Follow up with GI services outpatient Follow up with general surgery outpatient Recommend following up with primary care in 1-2 days after discharge Follow up CBC in 2-3 days Discharge Disposition: HOME SELF-CARE
[2022-01-15 13:14] LABS: Basophils % (A) 1 %; Eosinophils # (A) 0.2 k/uL (0-0.7); Eosinophils % (A) 3 %; Hypochromasia Slight; Lymphocytes # (A) 2.1 k/uL (1.0-4.8); Lymphocytes % (A) 26 %; MCH 28.9 pg (25.0-35.0); MCHC 32.2 g/dL (31.0-37.0); MCV 89.6 fL (80.0-100.0); Mean Platelet Volume 6.8; Monocytes # (A) 0.4 k/uL (0-1.0); Monocytes % (A) 5 %; Neutrophils % (A) 63 %; Platelet Count 313 k/uL (150-450); RBC 2.19 m/uL (4.30-5.90); RDW 15.3 % (11.5-15.5)
[2022-01-15 13:19] LABS: HGB 6.3 gm/dL (13.0-17.5)
[2022-01-15 13:23] LABS: HCT 19.6 % (39.0-53.0)
[2022-01-15] MEDS: MONTELUKAST 10 MG TAB PO SCH (20:24)
[2022-01-15] MEDS: PANTOPRAZOLE 40 MG/10 ML VIAL IVP SCH (20:25)
[2022-01-15] MEDS: ATORVASTATIN 20 MG TAB PO SCH (20:25)
[2022-01-15] MEDS: LATANOPROST 0.005% OPHTH DROPS 2.5 ML BTL BOTH EYES SCH (21:54)
[2022-01-16] MEDS: SUCRALFATE 1 GM TAB PO SCH ×4 (06:16→20:05)
[2022-01-16] MEDS: SYMBICORT 80-4.5 MCG INHALER INHALATION SCH ×2 (07:04→20:38)
[2022-01-16] MEDS: IPRATROPIUM 0.5 MG/2.5 ML NEBU INHALATION SCH ×4 (07:04→20:38)
[2022-01-16] MEDS: SODIUM CHLORIDE 0.9% 1,000 ML IV SCH (07:24)
[2022-01-16] MEDS: SPIRONOLACTONE 25 MG TAB PO SCH ×2 (08:55→20:05)
[2022-01-16] MEDS: PANTOPRAZOLE 40 MG/10 ML VIAL IVP SCH ×2 (08:55→20:05)
[2022-01-16 09:58] LABS: Basophils % (A) 0 %; Eosinophils # (A) 0.2 k/uL (0-0.7); Eosinophils % (A) 3 %; HCT 21.3 % (39.0-53.0); HGB 7.1 gm/dL (13.0-17.5); Hypochromasia Slight; Lymphocytes # (A) 1.9 k/uL (1.0-4.8); Lymphocytes % (A) 24 %; MCH 29.7 pg (25.0-35.0); MCHC 33.2 g/dL (31.0-37.0); MCV 89.5 fL (80.0-100.0); Mean Platelet Volume 7.9; Monocytes # (A) 0.4 k/uL (0-1.0); Monocytes % (A) 5 %; Neutrophils # (A) 5.5 k/uL (1.3-7.7); Neutrophils % (A) 68 %; Platelet Count 358 k/uL (150-450); RBC 2.38 m/uL (4.30-5.90); RDW 15.4 % (11.5-15.5); WBC 8.2 k/uL (3.8-10.6)
[2022-01-16 10:10] LABS: African American GFR (CKD) >90 (>60 ml/min/1.73 sqM); Anion Gap 6 mmol/L; Blood Urea Nitrogen 14 mg/dL (9-20); Calcium 7.9 mg/dL (8.4-10.2); Carbon Dioxide 24 mmol/L (22-30); Chloride 105 mmol/L (98-107); Glucose 122 mg/dL (74-99); Magnesium 1.7 mg/dL (1.6-2.3); Non-African American GFR(CKD) >90 (>60 ml/min/1.73 sqM); Potassium 3.3 mmol/L (3.5-5.1); Sodium 135 mmol/L (137-145)
[2022-01-16] MEDS ORDERED: POTASSIUM CHLORIDE ER 20 MEQ TAB.ER PO STA (12:19)
[2022-01-16] MEDS ORDERED: MAGNESIUM SULFATE-D5W PMX 1 GM in DEXTROSE/WATER 1 100ML.BAG IVPB ONE (12:19)
[2022-01-16] MEDS ORDERED: SODIUM CHLORIDE 0.9% 500 ML 500 ML IV ONE (12:23)
--- NOTE | 2022-01-16 12:24 | P.PN ---
Subjective This is a 66-year-old male who presented to the emergency department via EMS after an episode of hematemesis and continued melena. Patient was recently discharged one day prior after an EGD with a reported duodenal ulcer with no active bleeding and was discharged home on Protonix and Carafate and to follow- up with surgery and GI in the outpatient setting. Patient does have a past medical history of hyperlipidemia, hypertension, morbid obesity, chronic venous insufficiency with chronic ulcers and sees wound care in the outpatient setting, and former smoker. Patient reports to occasional alcohol use and denies any illicit drug use. On admission labs revealed a WBC of 13.2, hemoglobin was 8.1, INR 0.9, sodium 138, potassium 4.5, BUN 29, creatinine 1.18, plasma lactic acid 1.7, calcium 8.1, troponin 0.074. This morning was a drop in hemoglobin of 7.1 and will continue to monitor closely. Patient did have mildly elevated troponins 2 days prior and was evaluated by cardiology and to follow-up in the outpatient setting as patient denied any chest pain or palpitations. Per EMS report patient reported feelings of diaphoresis and palpitations after vomiting blood. GI was consulted and will discuss with surgery as well as general s urgery Dr. Gonzalez performed the EGD prior admission. Patient underwent EGD with Dr. Jef Arriola with for possible acute upper GI Bleed. At the bulb of duodenum there was a 2 cm duodenal ulcer identified and there was a small clot with food particles adjacent. No active bleeding was found and at the base of the ulcer epinephrine was injected. There is also a small viable vessel found and 2 endoclips were placed. Small hiatal hernia was evidenced. No erosions or ulcerations were found in the esophagus. Patient was started on clear liquid diet post procedure. 01/15/2022 Patient evaluated today sitting up in a chair. He does report some increased peripheral edema and has ASA hose in place. He was started on clear liquid diet and states that he had sodium in the broth which caused lower extremity swelling. He also complains of some musculoskeletal pain to his left shoulder that is positional he has full range of motion. The pain subsides with correct positioning per patient and heat improves the discomfort. Denies chest pain, shortness of breath. Denies dizziness or lightheadedness. He is passing gas. Urinating without difficulty. Denies nausea, vomiting, diarrhea. No hematemesis or melena noted. There is no abdominal tenderness on palpation. Lungs are clear, S1-S2 auscultated. Focal neurologic exam is negative. He is recommended to follow-up with GI services as well as general surgery and cardiology on discharge. Repeat CBC in 2 days. Recommended to continue compression stockings to bilateral lower extremity. Recommend advancing diet as tolerated with low sodium. I'm resume in the care of the patient today 01/16/2022 This is a pleasant 66 years old male with past medical history of multiple problems presents with GI bleed with hematemesis and blood per rectum secondary to 2 cm duodenal ulcer status post epinephrine injection and Endo Clip placement, and he is on Protonix twice daily and Carafate twice daily and he was supposed to be discharged yesterday however his hemoglobin came down to 6.3 and he received 1 unit of blood transfusion, his hemoglobin today still 7.1. History of gallbladder from was in the blood and black stool per rectum. No abdominal pain or vomiting. He tolerates diet well. Blood pressure is low normal. Currently he is continued on normal saline 75 mL/h. We will increase his Carafate twice daily into 4 times a day. Also we'll give a bolus of 500 mL Objective - Vital Signs Vital signs: Vital Signs Temp 98 F 01/16/22 08:00 Pulse 79 01/16/22 08:00 Resp 18 01/16/22 08:00 BP 101/67 01/16/22 08:00 Pulse Ox 98 01/16/22 08:00 FiO2 Intake & Output 01/15/22 01/16/22 01/16/22 18:59 06:59 18:59 Intake Total 0 287 Output Total 900 Balance 0 -613 Intake: Blood Product 0 287 Rc Pheresis 2 As3 Unit 0 287 [id number] Output: Urine 900 Other: # Bowel Movements 2 - Exam -GENERAL: The patient is alert and oriented x3, not in any acute distress. Morbidly obese HEENT: Pupils are round and equally reacting to light. EOMI. No scleral icterus. No conjunctival pallor. Normocephalic, atraumatic. No pharyngeal erythema. No thyromegaly. CARDIOVASCULAR: S1 and S2 present. No murmurs, rubs, or gallops. PULMONARY: Chest is clear to auscultation, no wheezing or crackles. ABDOMEN: Soft, nontender, nondistended, normoactive bowel sounds. No palpable organomegaly. MUSCULOSKELETAL: No joint swelling or deformity. EXTREMITIES: No cyanosis, clubbing, or pedal edema. NEUROLOGICAL: Gross neurological examination did not reveal any focal deficits. SKIN: No rashes. no petechiae. - Labs CBC & Chem 7: 01/16/22 08:39 01/16/22 08:39 Labs: Abnormal Lab Results - Last 24 Hours (Table) 01/14/22 01/15/22 Range/Units 16:12 12:34 RBC 2.19 L (4.30-5.90) m/uL Hgb 6.3 L* (13.0-17.5) gm/dL Hct 19.6 L* (39.0-53.0) % Crossmatch See Detail Assessment and Plan Assessment: Blood per rectum and hematemesis secondary to duodenal ulcer patient is status post epinephrine injection and Endo Clip placement to 2 cm duodenal ulcer in the duodenal bulb Acute blood loss anemia secondary to above Recent admission of acute upper GI bleed Peptic ulcer disease secondary to NSAID use Hemorrhoids Leukocytosis reactive without any evidence of infection Hyperlipidemia Hypertension Chronic venous insufficiency with chronic ulcers and follows with wound care in the outpatient setting Morbid obesity with a BMI of 43.4 Plan: This is a pleasant 66 years old male presents with anemia secondary to duodenal ulcer. Continue with Protonix and Carafate while increasing the dose of Carafate. Continue with IV fluids and give 500 mL bolus Monitor hemoglobin Surgery team on the case No GI cover it and this facility during this weekend and this coming week. Labs and medication were reviewed.. Continue same treatment. Continue with symptomatic treatment. Resume home medication. Monitor lytes and vitals. DVT and GI prophylaxis. Further recommendationsas per clinical course of the patient DVT prophylaxis: no Subcutaneous heparin due to ongoing GI bleed GI Prophylaxis: Ppi Prognosis is guarded
--- NOTE | 2022-01-16 14:05 | P.PN ---
Subjective Progress Note Date: 01/16/22 CHIEF COMPLAINT: Bleeding duodenal ulcer HISTORY OF PRESENT ILLNESS: The patient is a 66-year-old male who had upper endoscopy twice for bleeding duodenal ulcer. He status post upper endoscopy with injection of epinephrine and clipping by GI team. He had dark bowel movement yesterday however improving to brown color today. He complains of his IV of the right forearm. Swelling along the legs are improving. He did receive blood transfusion 1 unit for hemoglobin of 6.3. ROS: No reports of nausea and vomiting. No bowel movements. No fevers or chills. No new chest pain. No productive sputum PHYSICAL EXAM: VITAL SIGNS: Reviewed CONSTITUTIONAL: Well developed and in no acute distress. EYES: Conjuctivae without sclera icterus. Extraocular movements grossly intact. HEAD, EARS, NOSE, THROAT: Moist buccal mucosa. Head is atraumatic, normocephalic. Hears conversational speech. No nasal drainage. RESPIRATORY: Non-labored respirations and equal bilateral excursions. CARDIOVASCULAR: Palpable 2+ radial pulses. ABDOMEN: Obese. Nontender. MUSCULOSKELETAL: No gross deformity of the lower extremities noted. No clubbing. No cyanosis. SKIN: Good skin turgor. Well perfused. NEUROLOGIC: Cranial nerves II through XII grossly intact. No focal or lateralizing signs. PSYCH: Appropriate affect. Alert and oriented to person, place and time. CLINICAL LABS: Reviewed. Hemoglobin stable 7.1-7.3, anemia, down to 6.3 now 7.1 after 1 unit blood transfusion. ASSESSMENT: 1. Acute blood loss anemia due to duodenal ulcer 2. Morbid obesity due to excess calories, BMI 43.4 3. Gastrointestinal bleeding PLAN: 1. Continue Protonix and Carafate 2. Monitor hemoglobin Objective - Vital Signs Vital signs: Vital Signs Temp 97.9 F 01/16/22 12:00 Pulse 77 01/16/22 12:00 Resp 18 01/16/22 12:00 BP 120/64 01/16/22 12:00 Pulse Ox 96 01/16/22 12:00 FiO2 Intake & Output 01/15/22 01/16/22 01/16/22 18:59 06:59 18:59 Intake Total 0 287 Output Total 900 250 Balance 0 -613 -250 Intake: Blood Product 0 287 Rc Pheresis 2 As3 Unit 0 287 [id number] Output: Urine 900 250 Other: # Bowel Movements 2 - Labs CBC & Chem 7: 01/16/22 08:39 01/16/22 08:39 Labs: Abnormal Lab Results - Last 24 Hours (Table) 01/14/22 01/16/22 01/16/22 Range/Units 16:12 08:39 08:39 RBC 2.38 L (4.30-5.90) m/uL Hgb 7.1 L (13.0-17.5) gm/dL Hct 21.3 L (39.0-53.0) % Sodium 135 L (137-145) mmol/L Potassium 3.3 L (3.5-5.1) mmol/L Glucose 122 H (74-99) mg/dL Calcium 7.9 L (8.4-10.2) mg/dL Crossmatch See Detail
[2022-01-16] MEDS: ATORVASTATIN 20 MG TAB PO SCH (20:05)
[2022-01-16] MEDS: MONTELUKAST 10 MG TAB PO SCH (20:05)
[2022-01-16] MEDS: LATANOPROST 0.005% OPHTH DROPS 2.5 ML BTL BOTH EYES SCH (20:05)
[2022-01-17] MEDS: SODIUM CHLORIDE 0.9% 1,000 ML IV SCH ×4 (00:08→22:54)
[2022-01-17] MEDS: SUCRALFATE 1 GM TAB PO SCH ×4 (06:20→20:49)
[2022-01-17 07:53] LABS: Basophils % (A) 0 %; Eosinophils # (A) 0.2 k/uL (0-0.7); Eosinophils % (A) 3 %; HCT 22.9 % (39.0-53.0); HGB 7.4 gm/dL (13.0-17.5); Hypochromasia Slight; Lymphocytes # (A) 1.7 k/uL (1.0-4.8); Lymphocytes % (A) 22 %; MCH 29.3 pg (25.0-35.0); MCHC 32.3 g/dL (31.0-37.0); MCV 90.8 fL (80.0-100.0); Mean Platelet Volume 6.9; Monocytes # (A) 0.5 k/uL (0-1.0); Monocytes % (A) 6 %; Neutrophils # (A) 5.2 k/uL (1.3-7.7); Neutrophils % (A) 66 %; Platelet Count 413 k/uL (150-450); Poikilocytosis Slight; RBC 2.53 m/uL (4.30-5.90); RDW 15.8 % (11.5-15.5); WBC 7.8 k/uL (3.8-10.6)
[2022-01-17 08:03] LABS: African American GFR (CKD) >90 (>60 ml/min/1.73 sqM); Anion Gap 6 mmol/L; Blood Urea Nitrogen 11 mg/dL (9-20); Calcium 8.1 mg/dL (8.4-10.2); Carbon Dioxide 24 mmol/L (22-30); Chloride 107 mmol/L (98-107); Glucose 101 mg/dL (74-99); Non-African American GFR(CKD) >90 (>60 ml/min/1.73 sqM); Sodium 137 mmol/L (137-145)
[2022-01-17] MEDS: PANTOPRAZOLE 40 MG/10 ML VIAL IVP SCH ×2 (08:16→20:49)
[2022-01-17] MEDS: SPIRONOLACTONE 25 MG TAB PO SCH ×2 (08:16→20:49)
[2022-01-17] MEDS: IPRATROPIUM 0.5 MG/2.5 ML NEBU INHALATION SCH ×4 (08:25→20:44)
[2022-01-17] MEDS: SYMBICORT 80-4.5 MCG INHALER INHALATION SCH ×2 (08:25→20:42)
--- NOTE | 2022-01-17 11:24 | P.PN ---
Subjective This is a 66-year-old male who presented to the emergency department via EMS after an episode of hematemesis and continued melena. Patient was recently discharged one day prior after an EGD with a reported duodenal ulcer with no active bleeding and was discharged home on Protonix and Carafate and to follow- up with surgery and GI in the outpatient setting. Patient does have a past medical history of hyperlipidemia, hypertension, morbid obesity, chronic venous insufficiency with chronic ulcers and sees wound care in the outpatient setting, and former smoker. Patient reports to occasional alcohol use and denies any illicit drug use. On admission labs revealed a WBC of 13.2, hemoglobin was 8.1, INR 0.9, sodium 138, potassium 4.5, BUN 29, creatinine 1.18, plasma lactic acid 1.7, calcium 8.1, troponin 0.074. This morning was a drop in hemoglobin of 7.1 and will continue to monitor closely. Patient did have mildly elevated troponins 2 days prior and was evaluated by cardiology and to follow-up in the outpatient setting as patient denied any chest pain or palpitations. Per EMS report patient reported feelings of diaphoresis and palpitations after vomiting blood. GI was consulted and will discuss with surgery as well as general s urgery Dr. Gonzalez performed the EGD prior admission. Patient underwent EGD with Dr. Jef Arriola with for possible acute upper GI Bleed. At the bulb of duodenum there was a 2 cm duodenal ulcer identified and there was a small clot with food particles adjacent. No active bleeding was found and at the base of the ulcer epinephrine was injected. There is also a small viable vessel found and 2 endoclips were placed. Small hiatal hernia was evidenced. No erosions or ulcerations were found in the esophagus. Patient was started on clear liquid diet post procedure. 01/15/2022 Patient evaluated today sitting up in a chair. He does report some increased peripheral edema and has ASA hose in place. He was started on clear liquid diet and states that he had sodium in the broth which caused lower extremity swelling. He also complains of some musculoskeletal pain to his left shoulder that is positional he has full range of motion. The pain subsides with correct positioning per patient and heat improves the discomfort. Denies chest pain, shortness of breath. Denies dizziness or lightheadedness. He is passing gas. Urinating without difficulty. Denies nausea, vomiting, diarrhea. No hematemesis or melena noted. There is no abdominal tenderness on palpation. Lungs are clear, S1-S2 auscultated. Focal neurologic exam is negative. He is recommended to follow-up with GI services as well as general surgery and cardiology on discharge. Repeat CBC in 2 days. Recommended to continue compression stockings to bilateral lower extremity. Recommend advancing diet as tolerated with low sodium. I'm resume in the care of the patient today 01/16/2022 This is a pleasant 66 years old male with past medical history of multiple problems presents with GI bleed with hematemesis and blood per rectum secondary to 2 cm duodenal ulcer status post epinephrine injection and Endo Clip placement, and he is on Protonix twice daily and Carafate twice daily and he was supposed to be discharged yesterday however his hemoglobin came down to 6.3 and he received 1 unit of blood transfusion, his hemoglobin today still 7.1. History of gallbladder from was in the blood and black stool per rectum. No abdominal pain or vomiting. He tolerates diet well. Blood pressure is low normal. Currently he is continued on normal saline 75 mL/h. We will increase his Carafate twice daily into 4 times a day. Also we'll give a bolus of 500 mL 01/17/2022 Patient has no more episodes of bleeding per rectum, he didn't have bowel movement since yesterday as well where it was black. No abdominal pain. He is still on full liquid diet. Repeat hemoglobin today showing 7.4. And he is hemodynamically stable. He continued on IV Protonix 40 mg twice daily, they Carafate was increased to 4 times a day. We will add ferrous sulfate today i discussed the case with surgery team , we are going to keep the pt on full li quid diet and monitor his hemoglobin tomorrow, if her remains stable then he might be considered for discharge in 24- 48 hours Objective - Vital Signs Vital signs: Vital Signs Temp 98.2 F 01/17/22 08:15 Pulse 77 01/17/22 08:15 Resp 16 01/17/22 08:15 BP 113/58 01/17/22 08:15 Pulse Ox 97 01/17/22 08:15 FiO2 Intake & Output 01/16/22 01/17/22 01/17/22 18:59 06:59 18:59 Intake Total 240 Output Total 1550 1250 Balance -1550 -1250 240 Intake: Oral 240 Output: Urine 1550 1250 - Exam -GENERAL: The patient is alert and oriented x3, not in any acute distress. Morbidly obese HEENT: Pupils are round and equally reacting to light. EOMI. No scleral icterus. No conjunctival pallor. Normocephalic, atraumatic. No pharyngeal erythema. No thyromegaly. CARDIOVASCULAR: S1 and S2 present. No murmurs, rubs, or gallops. PULMONARY: Chest is clear to auscultation, no wheezing or crackles. ABDOMEN: Soft, nontender, nondistended, normoactive bowel sounds. No palpable organomegaly. MUSCULOSKELETAL: No joint swelling or deformity. EXTREMITIES: No cyanosis, clubbing, or pedal edema. NEUROLOGICAL: Gross neurological examination did not reveal any focal deficits. SKIN: No rashes. no petechiae. - Labs CBC & Chem 7: 01/17/22 07:24 01/17/22 07:24 Labs: Abnormal Lab Results - Last 24 Hours (Table) 01/17/22 01/17/22 Range/Units 07:24 07:24 RBC 2.53 L (4.30-5.90) m/uL Hgb 7.4 L (13.0-17.5) gm/dL Hct 22.9 L (39.0-53.0) % RDW 15.8 H (11.5-15.5) % Glucose 101 H (74-99) mg/dL Calcium 8.1 L (8.4-10.2) mg/dL Assessment and Plan Assessment: Blood per rectum and hematemesis secondary to duodenal ulcer patient is status post epinephrine injection and Endo Clip placement to 2 cm duodenal ulcer in the duodenal bulb Acute blood loss anemia secondary to above Recent admission of acute upper GI bleed Peptic ulcer disease secondary to NSAID use Hemorrhoids Leukocytosis reactive without any evidence of infection Hyperlipidemia Hypertension Chronic venous insufficiency with chronic ulcers and follows with wound care in the outpatient setting Morbid obesity with a BMI of 43.4 Plan: This is a pleasant 66 years old male presents with anemia secondary to duodenal ulcer. Continue with Protonix and Carafate while increasing the dose of Carafate. Keep Full liquid diet Monitor hemoglobin Surgery team on the case No GI cover it and this facility during this weekend and this coming week. Labs and medication were reviewed.. Continue same treatment. Continue with symptomatic treatment. Resume home medication. Monitor lytes and vitals. DVT and GI prophylaxis. Further recommendationsas per clinical course of the patient DVT prophylaxis: no Subcutaneous heparin due to ongoing GI bleed GI Prophylaxis: Ppi possible discharge in 24-48 hr if he keeps improving and remains stable
[2022-01-17] MEDS: FERROUS SULFATE 325 MG TAB PO SCH ×2 (12:02→19:22)
--- NOTE | 2022-01-17 13:27 | P.PN ---
Subjective Progress Note Date: 01/17/22 CHIEF COMPLAINT: Bleeding duodenal ulcer HISTORY OF PRESENT ILLNESS: The patient is a 66-year-old male who had upper endoscopy twice for bleeding duodenal ulcer. He status post upper endoscopy with injection of epinephrine and clipping by GI team. Patient did have a bowel movement that was mostly brown, but some dark and black area noted yesterday. Denies any abdominal pain. Denies any vomiting. Patient did have some increase in nausea after eating 2 bowls of oatmeal. Afebrile. WBC 7.8 hemoglobin stable at 7.4 patient does report a lump on posterior aspect of his lower neck. Denies any signs of infection to the area. Does report some mild discomfort especially when he presses against the chair or bed. PHYSICAL EXAM: VITAL SIGNS: Reviewed. GENERAL: Well-developed in no acute distress. HEENT: No sclera icterus. Extraocular movements grossly intact. Moist buccal mucosa. Head is atraumatic, normocephalic. Small likely sebaceous cyst lower aspect of the posterior neck ABDOMEN: Soft. Nondistended. Nontender. NEUROLOGIC: Alert and oriented. Cranial nerves II through XII grossly intact. ASSESSMENT: 1. Acute blood loss anemia due to duodenal ulcer 2. Morbid obesity due to excess calories, BMI 43.4 3. Gastrointestinal bleeding 4. Sebaceous cyst on the posterior aspect of the neck PLAN: -Continue to monitor for any signs or symptoms of bleeding -Continue monitor hemoglobin -continue Protonix and Carafate -No surgical intervention planned for the sebaceous cyst -Anticipate discharge possibly tomorrow Physician Scrap Crusher note has been reviewed by physician. Signing provider agrees with the documented findings, assessment, and plan of care. Objective - Vital Signs Vital signs: Vital Signs Temp 98.2 F 01/17/22 08:15 Pulse 75 01/17/22 12:00 Resp 16 01/17/22 12:00 BP 122/53 01/17/22 12:00 Pulse Ox 95 01/17/22 12:00 FiO2 Intake & Output 01/16/22 01/17/22 01/17/22 18:59 06:59 18:59 Intake Total 240 Output Total 1550 1250 200 Balance -1550 -1250 40 Intake: Oral 240 Output: Urine 1550 1250 200 - Labs CBC & Chem 7: 01/17/22 07:24 01/17/22 07:24 Labs: Abnormal Lab Results - Last 24 Hours (Table) 01/17/22 01/17/22 Range/Units 07:24 07:24 RBC 2.53 L (4.30-5.90) m/uL Hgb 7.4 L (13.0-17.5) gm/dL Hct 22.9 L (39.0-53.0) % RDW 15.8 H (11.5-15.5) % Glucose 101 H (74-99) mg/dL Calcium 8.1 L (8.4-10.2) mg/dL
[2022-01-17] MEDS ORDERED: SODIUM CHLORIDE 0.9% 1,000 ML IV ONE (14:23)
[2022-01-17 14:30] LABS: Glucose,Whole Blood 156 mg/dL (70-110)
[2022-01-17 14:59] LABS: Glucose,Whole Blood 133 mg/dL (70-110)
[2022-01-17 15:26] LABS: Hypochromasia Moderate; MCH 28.5 pg (25.0-35.0); MCHC 31.4 g/dL (31.0-37.0); MCV 90.9 fL (80.0-100.0); Mean Platelet Volume 7.8; Platelet Count 470 k/uL (150-450); Poikilocytosis Slight; RBC 2.14 m/uL (4.30-5.90); RDW 15.6 % (11.5-15.5); WBC 11.2 k/uL (3.8-10.6)
[2022-01-17 15:28] LABS: HGB 6.1 gm/dL (13.0-17.5)
[2022-01-17 15:29] LABS: HCT 19.4 % (39.0-53.0)
[2022-01-17] MEDS: ATORVASTATIN 20 MG TAB PO SCH (20:49)
[2022-01-17] MEDS: MONTELUKAST 10 MG TAB PO SCH (20:49)
[2022-01-17] MEDS: LATANOPROST 0.005% OPHTH DROPS 2.5 ML BTL BOTH EYES SCH (21:37)
[2022-01-17 22:51] LABS: HCT 21.6 % (39.0-53.0); Hypochromasia Slight; MCH 29.4 pg (25.0-35.0); MCHC 32.2 g/dL (31.0-37.0); MCV 91.2 fL (80.0-100.0); Mean Platelet Volume 7.1; Platelet Count 351 k/uL (150-450); Poikilocytosis Slight; RBC 2.37 m/uL (4.30-5.90); WBC 8.3 k/uL (3.8-10.6)
[2022-01-18 05:34] LABS: Glucose,Whole Blood 93 mg/dL (70-110)
[2022-01-18] MEDS: SODIUM CHLORIDE 0.9% 1,000 ML IV SCH ×2 (06:08→14:43)
[2022-01-18] MEDS: FERROUS SULFATE 325 MG TAB PO SCH ×2 (06:10→12:30)
--- NOTE | 2022-01-18 06:21 | P.CNPUL ---
History of Present Illness Consult date: 01/18/22 Requesting physician: Saul Smalls Reason for consult: other Chief complaint: GI bleed. History of present illness: Pulmonary consultation dated 01/18/2022. This is a 66-year-old male who was admitted to the hospital on January 13. The patient was admitted with a diagnosis of gastrointestinal bleed. He initially had an EGD, by on January 13. The patient had a subsequent EGD by Dr. Arriola on January 14, for a bleeding while also, which was treated by clipping and epinephrine injections. The patient apparently had a large-volume hematemesis on January 17, and was transferred to the intensive care unit for further monitoring and management. The patient has received 4 units of PRBCs. The most recent hemoglobin is 7. The patient's on room air. The patient's getting saline at 125 mL an hour. The patient is resting comfortably in the intensive care unit. The patient has a history of hypertension, hyperlipidemia, and COPD. The patient was a former smoker. Currently labs include a white count of 8.3, hemoglobin 7, hematocrit 21.6, and a platelet count of 351,000. These are labs from yesterday. Also, electrolyte profile from yesterday was essentially normal. The patient is currently nothing by mouth for a possible repeat EGD today. Review of Systems REVIEW OF SYSTEMS: CONSTITUTIONAL: [Negative.] NEUROLOGIC: [ Negative.] HEENT: [ Negative.] CARDIAC: [Negative.] PULMONARY: [Negative.] GI: Hematemesis. : [Negative.] RHEUMATOLOGIC: [ Negative.] IMMUNOLOGIC: [ Negative.] ENDOCRINE: [Negative. ] DERMATOLOGIC: [Negative.] Past Medical History Past Medical History: Hyperlipidemia, Hypertension Additional Past Medical History / Comment(s): Edema BLE, stress test abn, nocturia, ex-smoker, obseity, venous insufficiency, chronic ulcer of leg-healed, pressure in eyes, cellulitis, chronic pain, History of Any Multi-Drug Resistant Organisms: None Reported Past Surgical History: Orthopedic Surgery Additional Past Surgical History / Comment(s): Rt middle finger surgery R/T injury Past Anesthesia/Blood Transfusion Reactions: No Reported Reaction Smoking Status: Former smoker - Past Family History Mother Family Medical History: No Reported History Medications and Allergies Home Medications Medication Instructions Recorded Confirmed Type Atorvastatin [Lipitor] 20 mg PO HS 01/11/22 01/13/22 History Fluticasone/Umeclidin/Vilanter 1 puff INHALATION RT-BID 01/11/22 01/13/22 History [Trelegy Ellipta 100-62.5-25] Montelukast Sodium [Singulair] 10 mg PO HS 01/11/22 01/13/22 History Spironolactone 25 mg PO BID 01/12/22 01/13/22 History Hydrocortisone Suppository 25 mg RECTAL BID PRN #10 suppositor 01/13/22 01/13/22 Rx [Anusol-Hc] Latanoprost Ophth [Xalatan 0.005%] 1 drops BOTH EYES HS ml 01/13/22 01/13/22 Rx Pantoprazole [Protonix] 40 mg PO BID 30 Days #60 tab 01/13/22 01/13/22 Rx Sucralfate [Carafate] 1 gm PO AC-BID 30 Days #60 tab 01/13/22 01/13/22 Rx Allergies Allergy/AdvReac Type Severity Reaction Status Date / Time No Known Allergies Allergy Verified 01/13/22 22:08 Physical Exam Osteopathic Statement: *. No significant issues noted on an osteopathic structural exam other than those noted in the History and Physical/Consult. Vitals: Vital Signs Temp Pulse Pulse Resp BP BP Pulse Ox 01/18/22 06:00 65 16 110/55 95 01/18/22 05:30 66 18 112/61 97 01/18/22 05:00 64 15 104/59 95 01/18/22 04:30 73 31 H 106/89 100 01/18/22 04:00 98.0 F 65 14 137/64 98 01/18/22 03:30 67 19 127/66 99 01/18/22 03:16 97.9 F 65 12 127/66 97 01/18/22 03:00 66 22 106/57 97 01/18/22 02:30 58 L 18 118/58 99 01/18/22 02:28 98.2 F 56 L 13 118/58 97 01/18/22 02:25 98.2 F 56 L 13 115/68 97 01/18/22 02:00 67 21 112/83 97 01/18/22 01:55 98.6 F 70 16 112/83 98 01/18/22 01:45 98.3 F 58 L 12 112/68 100 01/18/22 01:32 98.0 F 60 14 121/64 97 01/18/22 01:30 57 L 16 121/58 98 01/18/22 01:00 56 L 20 119/61 92 L 01/18/22 00:30 98.2 F 66 21 100/60 94 L 01/18/22 00:02 65 20 100/60 90 L 01/18/22 00:00 98.7 F 60 23 105/52 94 L 01/17/22 23:50 98.4 F 69 15 105/52 97 01/17/22 23:30 59 L 18 110/75 95 01/17/22 23:00 71 21 114/60 93 L 01/17/22 22:30 66 8 L 100/47 97 01/17/22 22:00 65 16 115/47 95 01/17/22 21:30 66 17 111/66 93 L 01/17/22 21:00 66 11 L 144/132 95 01/17/22 20:53 67 01/17/22 20:43 68 01/17/22 20:30 89 18 125/62 95 01/17/22 20:00 98.5 F 60 18 104/47 96 01/17/22 19:41 98.5 F 65 15 104/47 96 01/17/22 19:30 75 17 97/75 89 L 01/17/22 19:00 64 18 97/58 99 01/17/22 18:36 97.4 F L 62 19 97/58 99 01/17/22 18:30 61 18 99/48 100 01/17/22 18:06 97.5 F L 64 16 99/48 98 01/17/22 18:00 61 16 120/50 100 01/17/22 17:56 97.5 F L 64 18 120/50 99 01/17/22 17:30 85 24 112/64 95 01/17/22 17:21 98.4 F 68 16 112/64 99 01/17/22 17:00 80 15 107/57 94 L 01/17/22 16:30 78 21 112/50 95 01/17/22 16:20 98.7 F 79 23 107/57 96 01/17/22 16:00 98.4 F 71 19 112/60 94 L 01/17/22 15:50 98.4 F 79 14 112/60 95 01/17/22 15:40 98.6 F 75 21 93/57 97 01/17/22 15:10 98.4 F 82 93/57 95 01/17/22 14:30 107 H 16 99/55 01/17/22 14:27 99 16 98/54 01/17/22 14:25 113 H 98/52 98 01/17/22 14:20 69 16 115/57 98 01/17/22 12:00 75 16 122/53 95 01/17/22 08:15 98.2 F 77 16 113/58 97 FiO2 01/18/22 06:00 01/18/22 05:30 01/18/22 05:00 01/18/22 04:30 01/18/22 04:00 01/18/22 03:30 01/18/22 03:16 01/18/22 03:00 01/18/22 02:30 01/18/22 02:28 01/18/22 02:25 01/18/22 02:00 01/18/22 01:55 01/18/22 01:45 01/18/22 01:32 01/18/22 01:30 01/18/22 01:00 01/18/22 00:30 01/18/22 00:02 01/18/22 00:00 01/17/22 23:50 01/17/22 23:30 01/17/22 23:00 01/17/22 22:30 01/17/22 22:00 01/17/22 21:30 01/17/22 21:00 01/17/22 20:53 01/17/22 20:43 01/17/22 20:30 01/17/22 20:00 01/17/22 19:41 01/17/22 19:30 01/17/22 19:00 01/17/22 18:36 01/17/22 18:30 01/17/22 18:06 01/17/22 18:00 01/17/22 17:56 01/17/22 17:30 01/17/22 17:21 01/17/22 17:00 01/17/22 16:30 01/17/22 16:20 01/17/22 16:00 2 01/17/22 15:50 01/17/22 15:40 01/17/22 15:10 01/17/22 14:30 01/17/22 14:27 01/17/22 14:25 01/17/22 14:20 01/17/22 12:00 01/17/22 08:15 Intake and Output 01/17/22 01/17/22 01/18/22 14:59 22:59 06:59 Intake Total 240 2115 2180 Output Total 1300 325 300 Balance -1060 1790 1880 Intake: IV 375 875 Sodium Chloride 0.9% 1, 375 875 000 ml @ 125 mls/hr IV . Q8H [facility] Rx#:[id number] Intake, IV Titration 500 Amount Sodium Chloride 0.9% 1, 500 000 ml @ 125 mls/hr IV . Q8H [facility] Rx#:[id number] Oral 240 Blood Product 1240 1180 Rc As-1 Unit 310 [id number] Rc Pheresis 2 As3 Unit 310 [id number] Rc Pheresis As-3 Unit 310 [id number] Rc Pheresis As-3 Unit 280 [id number] Lipid 125 Sodium Chloride 0.9% 1, 125 000 ml @ 125 mls/hr IV . Q8H [facility] Rx#:[id number] Output: Urine 200 325 300 Emesis 1100 Other: Voiding Method Urinal Urinal # Voids 250 0 Weight 151 kg No acute distress, oriented 3. Patient is a bit pale. HEENT examination is grossly unremarkable. Neck supple. Full range of motion. No adenopathy thyromegaly or neck vein distention. Cardiovascular examination reveals regular rhythm rate. S1-S2 normal. No S3 or S4. No discernible murmur noted. Heart rate 65 bpm. Lungs reveal clear breath sounds. Breath sounds are equal bilaterally. No adventitious lung sounds including wheezes rhonchi or crackles. Abdomen is obese. Bowel sounds are noted. No masses. No tenderness. Extremities are intact. No cyanosis clubbing or edema. Skin is without rash or lesion. Neurologic examination is brief but nonfocal. Results - Laboratory Findings CBC and BMP: 01/17/22 22:25 01/17/22 07:24 PT/INR, D-dimer PT 10.2 sec (9.0-12.0) 01/14/22 00:28 INR 0.9 (<1.2) 01/14/22 00:28 Abnormal lab findings: Abnormal Labs 01/14/22 01/14/22 01/14/22 00:28 00:28 00:28 WBC 13.2 H RBC 2.90 L Hgb 8.1 L D Hct 25.7 L RDW Plt Count Neutrophils # 11.4 H APTT 17.8 L Sodium Potassium BUN 29 H Glucose 111 H POC Glucose (mg/dL) Calcium 8.1 L Troponin I Total Protein 5.6 L Albumin 3.0 L Crossmatch 01/14/22 01/14/22 01/14/22 00:28 08:21 16:12 WBC RBC 2.50 L Hgb 7.1 L Hct 21.8 L RDW Plt Count Neutrophils # APTT Sodium Potassium BUN Glucose POC Glucose (mg/dL) Calcium Troponin I 0.074 H* Total Protein Albumin Crossmatch See Detail 01/14/22 01/15/22 01/16/22 23:46 12:34 08:39 WBC RBC 2.49 L 2.19 L 2.38 L Hgb 7.3 L 6.3 L* 7.1 L Hct 22.5 L 19.6 L* 21.3 L RDW 15.6 H Plt Count Neutrophils # APTT Sodium Potassium BUN Glucose POC Glucose (mg/dL) Calcium Troponin I Total Protein Albumin Crossmatch 01/16/22 01/17/22 01/17/22 08:39 07:24 07:24 WBC RBC 2.53 L Hgb 7.4 L Hct 22.9 L RDW 15.8 H Plt Count Neutrophils # APTT Sodium 135 L Potassium 3.3 L BUN Glucose 122 H 101 H POC Glucose (mg/dL) Calcium 7.9 L 8.1 L Troponin I Total Protein Albumin Crossmatch 01/17/22 01/17/22 01/17/22 14:27 14:29 14:47 WBC 11.2 H RBC 2.14 L Hgb 6.1 L* Hct 19.4 L* RDW 15.6 H Plt Count 470 H Neutrophils # APTT Sodium Potassium BUN Glucose POC Glucose (mg/dL) 156 H Calcium Troponin I Total Protein Albumin Crossmatch See Detail 01/17/22 01/17/22 14:56 22:25 WBC RBC 2.37 L Hgb 7.0 L Hct 21.6 L RDW Plt Count Neutrophils # APTT Sodium Potassium BUN Glucose POC Glucose (mg/dL) 133 H Calcium Troponin I Total Protein Albumin Crossmatch Assessment and Plan Assessment: Acute upper GI bleed, with hematemesis. Patient has received 4 units of PRBCs. Acute anemia, secondary to upper GI bleed. History of COPD, from previous tobacco use. Obesity. History of hypertension. History of hyperlipidemia. Plan: Plan dated 01/18/2022. The patient remained stable in the intensive care unit. Morning labs are currently pending. Most recent hemoglobin is 7.0. The patient has received 4 units of PRBCs. The patient has undergone 2 EGDs. The patient may have another EGD today. We will continue to follow make recommendations where appropriate. Prognosis is guarded. Time with Patient: Greater than 30
[2022-01-18 07:51] LABS: Basophils # (A) 0.1 k/uL (0-0.2); Basophils % (A) 1 %; Eosinophils # (A) 0.3 k/uL (0-0.7); Eosinophils % (A) 3 %; HCT 24.7 % (39.0-53.0); Hypochromasia Slight; Lymphocytes # (A) 1.8 k/uL (1.0-4.8); Lymphocytes % (A) 20 %; MCH 29.7 pg (25.0-35.0); MCHC 32.4 g/dL (31.0-37.0); MCV 91.8 fL (80.0-100.0); Mean Platelet Volume 7.8; Monocytes # (A) 0.6 k/uL (0-1.0); Monocytes % (A) 7 %; Neutrophils # (A) 5.9 k/uL (1.3-7.7); Neutrophils % (A) 67 %; Platelet Count 525 k/uL (150-450); Poikilocytosis Slight; RBC 2.69 m/uL (4.30-5.90); WBC 8.8 k/uL (3.8-10.6)
[2022-01-18] MEDS: PANTOPRAZOLE 40 MG/10 ML VIAL IVP SCH (08:01)
[2022-01-18 08:22] LABS: Albumin 2.4 g/dL (3.5-5.0); Bilirubin, Delta 0.2 mg/dL (0.0-0.2); Bilirubin,Unconjugated 1.2 mg/dL (0.0-1.1); Total Bilirubin 1.4 mg/dL (0.2-1.3); Total Protein 4.7 g/dL (6.3-8.2)
[2022-01-18] MEDS: IPRATROPIUM 0.5 MG/2.5 ML NEBU INHALATION SCH ×3 (08:57→15:04)
[2022-01-18] MEDS: SYMBICORT 80-4.5 MCG INHALER INHALATION SCH (08:57)
[2022-01-18] MEDS ORDERED: DOCUSATE 100 MG CAP PO PRN (09:06)
[2022-01-18 09:09] LABS: INR 0.9 (<1.2); Prothrombin Time 10.3 sec (9.0-12.0)
[2022-01-18 10:04] LABS: Partial Thromboplastin Time 20.9 sec (22.0-30.0)
--- NOTE | 2022-01-18 11:11 | P.PN ---
Subjective This is a 66-year-old male who presented to the emergency department via EMS after an episode of hematemesis and continued melena. Patient was recently discharged one day prior after an EGD with a reported duodenal ulcer with no active bleeding and was discharged home on Protonix and Carafate and to follow- up with surgery and GI in the outpatient setting. Patient does have a past medical history of hyperlipidemia, hypertension, morbid obesity, chronic venous insufficiency with chronic ulcers and sees wound care in the outpatient setting, and former smoker. Patient reports to occasional alcohol use and denies any illicit drug use. On admission labs revealed a WBC of 13.2, hemoglobin was 8.1, INR 0.9, sodium 138, potassium 4.5, BUN 29, creatinine 1.18, plasma lactic acid 1.7, calcium 8.1, troponin 0.074. This morning was a drop in hemoglobin of 7.1 and will continue to monitor closely. Patient did have mildly elevated troponins 2 days prior and was evaluated by cardiology and to follow-up in the outpatient setting as patient denied any chest pain or palpitations. Per EMS report patient reported feelings of diaphoresis and palpitations after vomiting blood. GI was consulted and will discuss with surgery as well as general s urgery Dr. Gonzalez performed the EGD prior admission. Patient underwent EGD with Dr. Jef Arriola with for possible acute upper GI Bleed. At the bulb of duodenum there was a 2 cm duodenal ulcer identified and there was a small clot with food particles adjacent. No active bleeding was found and at the base of the ulcer epinephrine was injected. There is also a small viable vessel found and 2 endoclips were placed. Small hiatal hernia was evidenced. No erosions or ulcerations were found in the esophagus. Patient was started on clear liquid diet post procedure. 01/15/2022 Patient evaluated today sitting up in a chair. He does report some increased peripheral edema and has ASA hose in place. He was started on clear liquid diet and states that he had sodium in the broth which caused lower extremity swelling. He also complains of some musculoskeletal pain to his left shoulder that is positional he has full range of motion. The pain subsides with correct positioning per patient and heat improves the discomfort. Denies chest pain, shortness of breath. Denies dizziness or lightheadedness. He is passing gas. Urinating without difficulty. Denies nausea, vomiting, diarrhea. No hematemesis or melena noted. There is no abdominal tenderness on palpation. Lungs are clear, S1-S2 auscultated. Focal neurologic exam is negative. He is recommended to follow-up with GI services as well as general surgery and cardiology on discharge. Repeat CBC in 2 days. Recommended to continue compression stockings to bilateral lower extremity. Recommend advancing diet as tolerated with low sodium. I'm resume in the care of the patient today 01/16/2022 This is a pleasant 66 years old male with past medical history of multiple problems presents with GI bleed with hematemesis and blood per rectum secondary to 2 cm duodenal ulcer status post epinephrine injection and Endo Clip placement, and he is on Protonix twice daily and Carafate twice daily and he was supposed to be discharged yesterday however his hemoglobin came down to 6.3 and he received 1 unit of blood transfusion, his hemoglobin today still 7.1. History of gallbladder from was in the blood and black stool per rectum. No abdominal pain or vomiting. He tolerates diet well. Blood pressure is low normal. Currently he is continued on normal saline 75 mL/h. We will increase his Carafate twice daily into 4 times a day. Also we'll give a bolus of 500 mL 01/17/2022 Patient has no more episodes of bleeding per rectum, he didn't have bowel movement since yesterday as well where it was black. No abdominal pain. He is still on full liquid diet. Repeat hemoglobin today showing 7.4. And he is hemodynamically stable. He continued on IV Protonix 40 mg twice daily, they Carafate was increased to 4 times a day. We will add ferrous sulfate today i discussed the case with surgery team , we are going to keep the pt on full li quid diet and monitor his hemoglobin tomorrow, if her remains stable then he might be considered for discharge in 24- 48 hours 01/19/2012 Patient last evening developed large bloody hematemesis with a drop in hemoglobin down to 6.1, he received about 4 units of blood transfusion and his hemoglobin improved today to 8.0. Patient this morning is lying in bed comfortable. Denies any abdominal pain. No more vomiting or bleeding. No bowel movement and he asked for stool softeners to be given for him, patient was placed on Colace when necessary. His blood pressure is stable 111/50. He remains on normal saline at 1 25 mL/h. Also he is on a Protonix twice daily and Carafate 4 times a day. Surgery team on the case. Objective - Vital Signs Vital signs: Vital Signs Temp 98.1 F 01/18/22 08:00 Pulse 63 01/18/22 10:00 Resp 22 01/18/22 10:00 BP 111/50 01/18/22 10:00 Pulse Ox 97 01/18/22 10:00 FiO2 2 01/17/22 16:00 Intake & Output 01/17/22 01/18/22 01/18/22 18:59 06:59 18:59 Intake Total 1235 3300 500 Output Total 1300 625 275 Balance -65 2675 225 Weight 151 kg Intake: IV 1250 500 Sodium Chloride 0.9% 1, 1250 500 000 ml @ 125 mls/hr IV . Q8H [facility] Rx#:[id number] Intake, IV Titration 375 125 Amount Sodium Chloride 0.9% 1, 375 125 000 ml @ 125 mls/hr IV . Q8H [facility] Rx#:[id number] Oral 240 Blood Product 620 1800 Rc As-1 Unit 310 [id number] Rc Pheresis 2 As3 Unit 310 [id number] Rc Pheresis As-3 Unit 0 310 [id number] Rc Pheresis As-3 Unit 280 [id number] Lipid 125 Sodium Chloride 0.9% 1, 125 000 ml @ 125 mls/hr IV . Q8H [facility] Rx#:[id number] Output: Urine 200 625 275 Emesis 1100 Other: Voiding Method Urinal Urinal # Voids 0 0 - Exam -GENERAL: The patient is alert and oriented x3, not in any acute distress. Morbidly obese HEENT: Pupils are round and equally reacting to light. EOMI. No scleral icterus. No conjunctival pallor. Normocephalic, atraumatic. No pharyngeal erythema. No thyromegaly. CARDIOVASCULAR: S1 and S2 present. No murmurs, rubs, or gallops. PULMONARY: Chest is clear to auscultation, no wheezing or crackles. ABDOMEN: Soft, nontender, nondistended, normoactive bowel sounds. No palpable organomegaly. MUSCULOSKELETAL: No joint swelling or deformity. EXTREMITIES: No cyanosis, clubbing, or pedal edema. NEUROLOGICAL: Gross neurological examination did not reveal any focal deficits. SKIN: No rashes. no petechiae. - Labs CBC & Chem 7: 01/18/22 07:17 01/17/22 07:24 Labs: Abnormal Lab Results - Last 24 Hours (Table) 01/14/22 01/17/22 01/17/22 Range/Units 16:12 14:27 14:29 WBC 11.2 H (3.8-10.6) k/uL RBC 2.14 L (4.30-5.90) m/uL Hgb 6.1 L* (13.0-17.5) gm/dL Hct 19.4 L* (39.0-53.0) % RDW 15.6 H (11.5-15.5) % Plt Count 470 H (150-450) k/uL APTT (22.0-30.0) sec POC Glucose (mg/dL) 156 H (70-110) mg/dL Total Bilirubin (0.2-1.3) mg/dL Unconjugated Bilirubin (0.0-1.1) mg/dL Total Protein (6.3-8.2) g/dL Albumin (3.5-5.0) g/dL Crossmatch See Detail 01/17/22 01/17/22 01/17/22 Range/Units 14:47 14:56 22:25 WBC (3.8-10.6) k/uL RBC 2.37 L (4.30-5.90) m/uL Hgb 7.0 L (13.0-17.5) gm/dL Hct 21.6 L (39.0-53.0) % RDW (11.5-15.5) % Plt Count (150-450) k/uL APTT (22.0-30.0) sec POC Glucose (mg/dL) 133 H (70-110) mg/dL Total Bilirubin (0.2-1.3) mg/dL Unconjugated Bilirubin (0.0-1.1) mg/dL Total Protein (6.3-8.2) g/dL Albumin (3.5-5.0) g/dL Crossmatch See Detail 01/18/22 01/18/22 01/18/22 Range/Units 07:17 07:17 08:35 WBC (3.8-10.6) k/uL RBC 2.69 L (4.30-5.90) m/uL Hgb 8.0 L (13.0-17.5) gm/dL Hct 24.7 L (39.0-53.0) % RDW (11.5-15.5) % Plt Count 525 H (150-450) k/uL APTT 20.9 L (22.0-30.0) sec POC Glucose (mg/dL) (70-110) mg/dL Total Bilirubin 1.4 H (0.2-1.3) mg/dL Unconjugated Bilirubin 1.2 H (0.0-1.1) mg/dL Total Protein 4.7 L (6.3-8.2) g/dL Albumin 2.4 L (3.5-5.0) g/dL Crossmatch Assessment and Plan Assessment: Blood per rectum and hematemesis secondary to duodenal ulcer patient is status post epinephrine injection and Endo Clip placement to 2 cm duodenal ulcer in the duodenal bulb Acute blood loss anemia secondary to above Recent admission of acute upper GI bleed Peptic ulcer disease secondary to NSAID use Hemorrhoids Leukocytosis reactive without any evidence of infection Hyperlipidemia Hypertension Chronic venous insufficiency with chronic ulcers and follows with wound care in the outpatient setting Morbid obesity with a BMI of 43.4 Plan: This is a pleasant 66 years old male presents with anemia secondary to duodenal ulcer. Continue with Protonix and Carafate while increasing the dose of Carafate. Continue with ICU management Keep Full liquid diet Monitor hemoglobin Surgery team on the case No GI cover it and this facility during this weekend and this coming week. Labs and medication were reviewed.. Continue same treatment. Continue with symptomatic treatment. Resume home medication. Monitor lytes and vitals. DVT and GI prophylaxis. Further recommendationsas per clinical course of the patient DVT prophylaxis: no Subcutaneous heparin due to ongoing GI bleed GI Prophylaxis: Ppi possible discharge in 24-48 hr if he keeps improving and remains stable
[2022-01-18 11:24] LABS: Glucose,Whole Blood 98 mg/dL (70-110)
[2022-01-18] MEDS: SUCRALFATE 1 GM TAB PO SCH ×2 (11:25→12:30)
[2022-01-18] MEDS: SPIRONOLACTONE 25 MG TAB PO SCH (11:25)
--- NOTE | 2022-01-18 11:53 | P.PN ---
Subjective Progress Note Date: 01/18/22 CHIEF COMPLAINT: Bleeding duodenal ulcer HISTORY OF PRESENT ILLNESS: The patient is a 66-year-old male who had upper endoscopy twice for bleeding duodenal ulcer. He status post upper endoscopy with injection of epinephrine and clipping by GI team. Yesterday patient vomited 1 L of dark red blood. He was hypotensive and tachycardic. Required to be transferred to the ICU. He received a total of 4 units of blood. He has had no further episodes of emesis denies any black stools or blood in his stools. Vitals are currently stable. He is nothing by mouth. His hemoglobin did drop to 6.1 and is now up to 8.0. Patient denies any abdominal pain. Afebrile. Patient seen and examined with Dr. blackwell PHYSICAL EXAM: VITAL SIGNS: Reviewed. GENERAL: Well-developed in no acute distress. HEENT: No sclera icterus. Extraocular movements grossly intact. Moist buccal mucosa. Head is atraumatic, normocephalic. ABDOMEN: Soft. Nondistended. Nontender. NEUROLOGIC: Alert and oriented. Cranial nerves II through XII grossly intact. ASSESSMENT: 1. Acute blood loss anemia due to duodenal ulcer 2. Morbid obesity due to excess calories, BMI 43.4 3. Gastrointestinal bleeding 4. Sebaceous cyst on the posterior aspect of the neck PLAN: -Recommend transfer to tertiary care center such as [facility] for possible embolization of the bleeding duodenal ulcer. There is no GI service c overage this week. -Keep patient strict nothing by mouth -Continue to monitor for any signs or symptoms of bleeding -Continue monitor hemoglobin -continue IV Protonix Physician Leasing Coordinator note has been reviewed by physician. Signing provider agrees with the documented findings, assessment, and plan of care. Objective - Vital Signs Vital signs: Vital Signs Temp 98.1 F 01/18/22 08:00 Pulse 63 01/18/22 10:00 Resp 22 01/18/22 10:00 BP 111/50 01/18/22 10:00 Pulse Ox 97 01/18/22 10:00 FiO2 2 01/17/22 16:00 Intake & Output 01/17/22 01/18/22 01/18/22 18:59 06:59 18:59 Intake Total 1235 3300 500 Output Total 1300 625 275 Balance -65 2675 225 Weight 151 kg Intake: IV 1250 500 Sodium Chloride 0.9% 1, 1250 500 000 ml @ 125 mls/hr IV . Q8H [facility] Rx#:[id number] Intake, IV Titration 375 125 Amount Sodium Chloride 0.9% 1, 375 125 000 ml @ 125 mls/hr IV . Q8H [facility] Rx#:[id number] Oral 240 Blood Product 620 1800 Rc As-1 Unit 310 [id number] Rc Pheresis 2 As3 Unit 310 [id number] Rc Pheresis As-3 Unit 0 310 [id number] Rc Pheresis As-3 Unit 280 [id number] Lipid 125 Sodium Chloride 0.9% 1, 125 000 ml @ 125 mls/hr IV . Q8H [facility] Rx#:[id number] Output: Urine 200 625 275 Emesis 1100 Other: Voiding Method Urinal Urinal # Voids 0 0 - Labs CBC & Chem 7: 01/18/22 07:17 01/17/22 07:24 Labs: Abnormal Lab Results - Last 24 Hours (Table) 01/14/22 01/17/22 01/17/22 Range/Units 16:12 14:27 14:29 WBC 11.2 H (3.8-10.6) k/uL RBC 2.14 L (4.30-5.90) m/uL Hgb 6.1 L* (13.0-17.5) gm/dL Hct 19.4 L* (39.0-53.0) % RDW 15.6 H (11.5-15.5) % Plt Count 470 H (150-450) k/uL APTT (22.0-30.0) sec POC Glucose (mg/dL) 156 H (70-110) mg/dL Total Bilirubin (0.2-1.3) mg/dL Unconjugated Bilirubin (0.0-1.1) mg/dL Total Protein (6.3-8.2) g/dL Albumin (3.5-5.0) g/dL Crossmatch See Detail 01/17/22 01/17/22 01/17/22 Range/Units 14:47 14:56 22:25 WBC (3.8-10.6) k/uL RBC 2.37 L (4.30-5.90) m/uL Hgb 7.0 L (13.0-17.5) gm/dL Hct 21.6 L (39.0-53.0) % RDW (11.5-15.5) % Plt Count (150-450) k/uL APTT (22.0-30.0) sec POC Glucose (mg/dL) 133 H (70-110) mg/dL Total Bilirubin (0.2-1.3) mg/dL Unconjugated Bilirubin (0.0-1.1) mg/dL Total Protein (6.3-8.2) g/dL Albumin (3.5-5.0) g/dL Crossmatch See Detail 01/18/22 01/18/22 01/18/22 Range/Units 07:17 07:17 08:35 WBC (3.8-10.6) k/uL RBC 2.69 L (4.30-5.90) m/uL Hgb 8.0 L (13.0-17.5) gm/dL Hct 24.7 L (39.0-53.0) % RDW (11.5-15.5) % Plt Count 525 H (150-450) k/uL APTT 20.9 L (22.0-30.0) sec POC Glucose (mg/dL) (70-110) mg/dL Total Bilirubin 1.4 H (0.2-1.3) mg/dL Unconjugated Bilirubin 1.2 H (0.0-1.1) mg/dL Total Protein 4.7 L (6.3-8.2) g/dL Albumin 2.4 L (3.5-5.0) g/dL Crossmatch
[2022-01-18 16:03] VITALS: BP 133/65; PULSE 63; RESP 22; TEMP 98.1
== END 2022-01-18 16:31 | disposition short-term general hospital (02) | DRG 378 ==
LOC: EC 21:58 → 3SCARD 01-14 01:54 → 2SICU 01-17 14:57
PROVIDERS: ADMIT Internal Medicine; ATTEND Internal Medicine
PROC: 0W3P8ZZ Control Bleeding in Gastrointestinal Tract, Via Natural or Artificial Opening Endoscopic (ICD-10-PCS; principal; 2022-01-14 07:30)
PROC: 30233N1 Transfusion of Nonautologous Red Blood Cells into Peripheral Vein, Percutaneous Approach (ICD-10-PCS; 2022-01-15)
DX: K26.4 Chronic or unspecified duodenal ulcer with hemorrhage (principal); Z68.42 Body mass index [BMI] 45.0-49.9, adult; D62 Acute posthemorrhagic anemia; I95.9 Hypotension, unspecified; D72.829 Elevated white blood cell count, unspecified; E66.01 Morbid (severe) obesity due to excess calories; J44.9 Chronic obstructive pulmonary disease, unspecified; Z20.822 Contact with and (suspected) exposure to COVID-19; T39.395A Adverse effect of other nonsteroidal anti-inflammatory drugs [NSAID], initial encounter; K44.9 Diaphragmatic hernia without obstruction or gangrene; I87.2 Venous insufficiency (chronic) (peripheral); E78.5 Hyperlipidemia, unspecified; I10 Essential (primary) hypertension; G89.29 Other chronic pain; K64.9 Unspecified hemorrhoids; L72.3 Sebaceous cyst; R35.1 Nocturia; M25.512 Pain in left shoulder; R77.8 Other specified abnormalities of plasma proteins; Z79.51 Long term (current) use of inhaled steroids; Z79.899 Other long term (current) drug therapy; Z87.891 Personal history of nicotine dependence; Z87.2 Personal history of diseases of the skin and subcutaneous tissue; Z86.31 Personal history of diabetic foot ulcer; Z87.39 Personal history of other diseases of the musculoskeletal system and connective tissue
CPT/HCPCS: 36415; 43243; 43255; 80048; 80053; 80076; 83605; 83735; 84484; 85025; 85027; 85610; 85730; 86850; 86900; 86901; 86920; 87635; 93005; 94640; 96374; 99285

== ENCOUNTER 2022-01-21 19:55 | Emergency (ER) | payer MEDICARE, OTHER ==
[2022-01-21 20:14] VITALS: PULSE 65; TEMP 97.5
--- NOTE | 2022-01-21 20:15 | ED ---
General Adult HPI - General Stated complaint: requesting L knee xray/Revisit Time Seen by Provider: 01/21/22 20:04 Source: patient, RN notes reviewed Mode of arrival: wheelchair Limitations: no limitations - History of Present Illness Initial comments: Patient is a pleasant 66-year-old male presenting to the emergency Department with left knee pain. Patient states during transfer he fell on his left knee. Patient states his leg folded up under him. Patient has had discomfort of the left knee since that time. Discomfort increases with touch and movement. No history of chronic knee problems. Patient questions if it is swollen or not. No calf pain. - Related Data Home Medications Medication Instructions Recorded Confirmed Atorvastatin [Lipitor] 20 mg PO HS 01/11/22 01/13/22 Fluticasone/Umeclidin/Vilanter 1 puff INHALATION RT-BID 01/11/22 01/13/22 [Trelegy Ellipta 100-62.5-25] Montelukast Sodium [Singulair] 10 mg PO HS 01/11/22 01/13/22 Spironolactone 25 mg PO BID 01/12/22 01/13/22 Previous Rx's Medication Instructions Recorded Hydrocortisone Suppository 25 mg RECTAL BID PRN #10 suppositor 01/13/22 [Anusol-Hc] Latanoprost Ophth [Xalatan 0.005%] 1 drops BOTH EYES HS ml 01/13/22 Pantoprazole [Protonix] 40 mg PO BID 30 Days #60 tab 01/13/22 Sucralfate [Carafate] 1 gm PO AC-BID 30 Days #60 tab 01/13/22 Allergies Allergy/AdvReac Type Severity Reaction Status Date / Time No Known Allergies Allergy Verified 01/21/22 20:10 Review of Systems ROS Statement: Those systems with pertinent positive or pertinent negative responses have been documented in the HPI. ROS Other: All systems not noted in ROS Statement are negative. Constitutional: Denies: fever Eyes: Denies: eye pain ENT: Denies: ear pain Respiratory: Denies: cough Cardiovascular: Denies: chest pain Endocrine: Denies: fatigue Gastrointestinal: Denies: abdominal pain Genitourinary: Denies: dysuria Musculoskeletal: Reports: as per HPI Skin: Denies: rash Neurological: Denies: weakness Past Medical History Past Medical History: Hyperlipidemia, Hypertension Additional Past Medical History / Comment(s): Edema BLE, stress test abn, nocturia, ex-smoker, obseity, venous insufficiency, chronic ulcer of leg-healed, pressure in eyes, cellulitis, chronic pain, History of Any Multi-Drug Resistant Organisms: None Reported Past Surgical History: Orthopedic Surgery Additional Past Surgical History / Comment(s): Rt middle finger surgery R/T injury Past Anesthesia/Blood Transfusion Reactions: No Reported Reaction Smoking Status: Former smoker - Past Family History Mother Family Medical History: No Reported History General Exam Limitations: no limitations General appearance: alert, in no apparent distress Head exam: Present: normocephalic Eye exam: Present: normal appearance Neck exam: Present: normal inspection. Absent: tenderness Respiratory exam: Present: normal lung sounds bilaterally Cardiovascular Exam: Present: regular rate, normal rhythm Expanded Peripheral pulses: 2+: Posterior Tibialis (R), Posterior Tibialis (L) GI/Abdominal exam: Present: soft. Absent: tenderness Extremities exam: Present: tenderness (Left knee with tenderness, mostly in the meniscal region. Pain with varus and valgus movement. Mild swelling.). Absent: calf tenderness Back exam: Present: normal inspection Neurological exam: Present: alert. Absent: motor sensory deficit Psychiatric exam: Present: normal affect, normal mood Skin exam: Present: normal color Course Vital Signs 01/21/22 20:10 Temperature 97.5 F L Pulse Rate 65 Respiratory 20 Rate Blood Pressure 123/94 O2 Sat by Pulse 95 Oximetry Medical Decision Making - Medical Decision Making Patient reevaluated and updated. Patient refuses pain medication. - Radiology Data Radiology results: image reviewed (X-ray left knee shows no fracture. Arthritis.) Disposition Clinical Impression: Knee pain Disposition: HOME SELF-CARE Condition: Stable Instructions (If sedation given, give patient instructions): Knee Pain (ED), Arthralgia (ED) Additional Instructions: Please follow-up with primary care physician and orthopedics in the next couple days for recheck. Continue ice. Return for increased pain, swelling, worsening or changing symptoms or other concerns. Brace provided Is patient prescribed a controlled substance at d/c from ED?: No Referrals: Nirmala Boswell III, MD [Primary Care Provider] - 1-2 days Nolan Booker MD [Medical Doctor] - 1-2 days Time of Disposition: 21:18
--- NOTE | 2022-01-21 20:54 | XR ---
EXAMINATION TYPE: XR knee complete LT DATE OF EXAM: 01/21/2022 COMPARISON: NONE HISTORY: Knee pain TECHNIQUE: 3 views FINDINGS: There is narrowing of the medial joint space. I see no fracture nor dislocation. There is m oderate spurring of the femoral and tibial condyles. There is spurring at the patellofemoral joint. T here is a mild knee joint effusion. IMPRESSION: Moderately severe osteoarthritis mainly in the medial joint space. No fracture.
[2022-01-21 21:49] VITALS: BP 105/58; RESP 18
== END 2022-01-21 21:58 | disposition home or self-care (01) ==
LOC: EC 19:55
DX: M25.562 Pain in left knee (principal); I10 Essential (primary) hypertension; E78.5 Hyperlipidemia, unspecified; Z79.899 Other long term (current) drug therapy; Z87.891 Personal history of nicotine dependence; W19.XXXA Unspecified fall, initial encounter
CPT/HCPCS: 99283; 73562; L1830